=== PATIENT | female | born 1975 | race Caucasian/White ===

== ENCOUNTER 2016-12-19 18:13 | Emergency (ER) | payer OTHER ==
[2016-10-23 12:20] VITALS: Ht 157.5 cm; Wt 61.2 kg
[~2016-12-19] VITALS: Ht 157.5 cm; Wt 61.2 kg
[~2016-12-19 18:13] MED LIST: ASCO-339 GT; ASCO500T20 GT; BACL10TA GT; CALC-1100 GT; CALC-226 PO; CALC1TAB51 GT; CEPH500C2 GT; CIPR-211 GT; DITXL5 GT; LACO200T2 GT; LACT10SO66 GT; LACT10SO66 PO; LANS15CA5 GT; LANS30CA10 PO; LEVE1000 GT; LEVE500T13 GT; LEVE500T13 PO; METH1TAB35 GT; METO-290 GT; NITR25OR3 PO; NITR50CA GT; ONDA4TAB22 PO; OXYB10TA11 PO; OXYB10TA4 GT; OXYB5TAB11 GT; TEMA15CA51 GT; TEMA30CA5 GT; TYLL650 GT; VITD2000 GT; [UNRECOGNIZED DRUG - CODE] GT
[2016-12-19 18:18] VITALS: BP 98/68; PULSE 110; RESP 18; TEMP 97.2; O2SAT 95
--- NOTE | 2016-12-19 18:26 | NUR ---
Pt placed to ER bed 1. Pt report given to SURI Vasquez.
--- NOTE | 2016-12-19 18:30 | NUR ---
dr. forrest at bedside examining the pt.
--- NOTE | 2016-12-19 18:35 | NUR ---
pt. brought in by family for clogging to suprapubic catherter, redness at site with coagulated blood surrounding the site, pt. non verbal unresponsive baseline
--- NOTE | 2016-12-19 18:40 | NUR ---
Attempted to flush supra-pubic catheter with sterile NS and 60 mL syringe. Resistence noted, does not flush. Dr. Quinn notified.
[2016-12-19 20:11] LABS: BILIRUBIN,URINE NEGATIVE (NEGATIVE); BLOOD, URINE 3+ (NEGATIVE); CLARITY/URINE CLOUDY (CLEAR); COLOR,URINE YELLOW (YELLOW); GLUCOSE,URINE NEGATIVE (NEGATIVE); KETONES,URINE NEGATIVE (NEGATIVE); LEUKOCYTE ESTERASE ,URINE 3+ (NEGATIVE); NITRITE, URINE POSITIVE (NEGATIVE); PROTEIN URINE TRACE (NEGATIVE); UROBILINOGEN,URINE 0.2 (0.2-1.0)
[2016-12-19 20:26] LABS: BACTERIA,URINE MANY /HPF (None Seen); MUCUS,URINE None Seen /LPF (None Seen); RBC,URINE 20-50 /HPF (0-3); WBC,URINE >100 /HPF (0-3)
[2016-12-19 20:31] VITALS: BP 99/78; PULSE 99; RESP 17; TEMP 97.8; O2SAT 96
--- NOTE | 2016-12-19 20:31 | NUR ---
Note ruione in EDM - 12/19/16 at 2034 by SDEDAJF Patient given written and verbal discharge instructions and verbalizes understanding. ER discussed with patient the results and treatment provided. Patient in stable condition. ID arm band removed. Rx of given. Patient educated on pain management and to follow up with PMD. Pain Scale 0/10 Opportunity for questions provided and answered.
--- NOTE | 2016-12-19 20:31 | NUR ---
Caregiver given written and verbal discharge instructions and verbalizes understanding. ER MD discussed with patient the results and treatment provided. Patient in stable condition. ID arm band removed. Rx of Ciprofloxacin hcl 500 mg tab given. Caregiver educated on pain management and to follow up with PMD. Pain Scale 0/10 Opportunity for questions provided and answered.
--- NOTE | 2016-12-24 11:29 | NUR ---
+URINE CX OBTAINED, REVIEWED WITH DR. HOFFMAN WHO STATED TO NOTIFY DR. CRONIN'S OFFICE FOR FURTHER TREATMENT. SPOKE WITH GENI AT DR. CRONINS OFFICE REPORT FAXED OVER, NUMBER VERIFIED FOR ACCURACY, CONFIRMATION PAGED OBTAINED AND SENT TO MEDICAL RECORDS
== END 2016-12-19 20:31 | disposition home or self-care (01) ==
LOC: SED 18:13
DX: T83.011A Breakdown (mechanical) of indwelling urethral catheter, initial encounter (principal); N39.0 Urinary tract infection, site not specified; Z86.79 Personal history of other diseases of the circulatory system
CPT/HCPCS: 81000-TC; 87086; 87186-TC; 99284

== ENCOUNTER 2017-01-11 17:40 | Inpatient (IN) | payer OTHER ==
[~2017-01-11] VITALS: Ht 160 cm; Wt 65.8 kg
[2017-01-11 18:47] VITALS: BP 104/75; PULSE 104; RESP 18; TEMP 97.2; O2SAT 98
--- NOTE | 2017-01-11 18:54 | NUR ---
Pt placed to ER waiting room with mother, in stable condition.
--- NOTE | 2017-01-11 20:18 | NUR ---
Patient to ER bed 2 to gown for evaluation. Side rails up. Report given to Charity MCCORD.
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
--- NOTE | 2017-01-11 21:21 | NUR ---
Dr Mclain at bedside examining patient
[2017-01-11] MEDS ORDERED: NACL 0.9% 1,000 ML IV ONE (21:30)
--- NOTE | 2017-01-11 22:00 | NUR ---
Pt on stable condition, VS WNL
[2017-01-11 22:17] LABS: BILIRUBIN,URINE NEGATIVE (NEGATIVE); BLOOD, URINE NEGATIVE (NEGATIVE); CLARITY/URINE CLOUDY (CLEAR); COLOR,URINE YELLOW (YELLOW); GLUCOSE,URINE NEGATIVE (NEGATIVE); KETONES,URINE NEGATIVE (NEGATIVE); LEUKOCYTE ESTERASE ,URINE 3+ (NEGATIVE); NITRITE, URINE POSITIVE (NEGATIVE); PH,URINE >=9.0 (5.0-8.0); PROTEIN URINE 1+ (NEGATIVE)
[2017-01-11] MEDS ORDERED: ZOLP10TA2 PO (22:37)
[2017-01-11 22:41] LABS: BACTERIA,URINE MANY /HPF (None Seen); RBC,URINE 0-3 /HPF (0-3); WBC,URINE 20-50 /HPF (0-3)
[2017-01-11 22:42] LABS: MUCUS,URINE None Seen /LPF (None Seen)
[2017-01-11 22:43] LABS: CALCIUM OXALATE CRYSTALS,UR 30-50 /HPF (None Seen); TRIPLE PHOSPHATE CRYSTAL,UR 30-50 /HPF (None Seen); URINE AMORPHOUS PHOSPHATES 2+ /HPF (None Seen)
[2017-01-11] MEDS ORDERED: COMMUNICATION ORDER XX ONE (22:45)
[2017-01-11] MEDS ORDERED: KCL 20 mEq in D5/0.45NS 1000mL 1,000 ML IV ONE (22:45)
[2017-01-11] MEDS ORDERED: OXYBUTYNIN CHLORIDE 5 MG TABLET PO SCH (23:00)
[2017-01-11] MEDS: ACETAMINOPHEN 650 MG/20.3 ML UDC GT SCH (23:00)
[2017-01-11] MEDS: METOCLOPRAMIDE HCL 10 MG TABLET GT SCH (23:00)
[2017-01-11] MEDS: LACOSAMIDE 100 MG TABLET GT SCH (23:00)
[2017-01-11] MEDS ORDERED: MILK OF MAGNESIA 30 ML UDC PO PRN (23:00)
[2017-01-11] MEDS ORDERED: levETIRAcetam 500 MG TABLET PO SCH (23:15)
[2017-01-11] MEDS ORDERED: MEROPENEM 500 MG IVPB PREMIX 50 ML IV SCH (23:15)
--- NOTE | 2017-01-11 23:25 | NUR ---
Patient will be admitted to care of Dr Morgan Admitted to Medsurg unit. Will go to room 101. Belongings list completed. Summary report printed. Report given to admitting nurse .
[2017-01-11 23:30] VITALS: BP 125/71; PULSE 119; RESP 16; TEMP 98; O2SAT 95
--- NOTE | 2017-01-11 23:30 | NUR ---
ADMISSION NOTE Received patient from ER via Wheelchair under the care of Dr Olson. Patient admitted with diagnosis of GT dysfunction. Patient is awake but confused and disoriented and moans only. No verbal response. No initiation of eye contact. All extremities contracted. Noted GT site red and with drainage. Keep comfortable. Will monitor closely.
--- NOTE | 2017-01-11 23:37 | NUR ---
CONSULTATION PAGED REASON FOR CONSULTATION:G-TUBE DYSFUNCTION WAS CONSULT CALLED?Y PERSON WHO WAS NOTIFIED:JONG CONSULTING PHYSICIAN:DANITA JIMENEZ (SHASTA SHUKLA DIGITAL ACCOUNT COORDINATOR) ONCOLOGY PHYSICIAN ASSISTANT SPECIALTY:GI ONCOLOGY PHYSICIAN ASSISTANT PHONE NUMBER:[phone]
[2017-01-11 23:44] LABS: EOSINOPHILS # (AUTO) 0.2 K/uL (0.0-0.4); MEAN CORPUSCULAR HGB CONC 33 % (32-36)
[2017-01-11 23:52] LABS: CALCIUM 9.1 mg/dL (8.4-11.0); CREATININE 0.29 mg/dL (0.55-1.30); POTASSIUM 3.6 mmol/L (3.5-5.1)
[2017-01-11 23:57] LABS: BASOPHILS % (AUTO) 0.7 % (0.0-2.0); HEMATOCRIT 44.7 % (36-48); HEMOGLOBIN 14.7 g/dL (12.0-16.0); LYMPHOCYTES % (AUTO) 31.3 % (20.5-51.5); MEAN CORPUSCULAR HEMOGLOBIN 29 pg (27-31); MEAN CORPUSCULAR VOLUME 87 fL (79.0-98.0); MONOCYTES % (AUTO) 7.2 % (1.7-9.3); NEUTROPHILS % (AUTO) 58.8 % (40.0-70.0); PLATELET COUNT (AUTO) 348 K/uL (130-430); RED BLOOD CELL COUNT(AUTO) 5.14 MIL/uL (4.2-6.2); RED CELL DISTRIBUTION WIDTH 15.5 % (9.0-15.0); WHITE BLOOD COUNT (AUTO) 9.1 K/uL (4.8-10.8)
[2017-01-11 23:58] LABS: BASOPHILS # (AUTO) 0.1 K/uL (0.0-0.2); LYMPHOCYTES # (AUTO) 2.9 K/uL (1.0-5.5); MONOCYTES # (AUTO) 0.7 K/uL (0.0-1.0); NEUTROPHILS # (AUTO) 5.2 K/uL (1.8-7.7)
[2017-01-12] VITALS: BP 125/71; PULSE 119; RESP 16; TEMP 98; O2SAT 95
[2017-01-12 00:01] LABS: ALBUMIN 3.4 g/dL (3.4-4.8); TOTAL BILIRUBIN 0.4 mg/dL (0.0-1.0); TOTAL PROTEIN, SERUM 8.2 g/dL (6.4-8.3)
[2017-01-12] MEDS ORDERED: MEROPENEM 500 MG VIAL IV ONE (00:31)
--- NOTE | 2017-01-12 03:04 | NUR ---
Medication All schedule medication via GT not given due to GT dysfunction, will notify Dr Olson regarding medication route. Charge nurse made aware.
[2017-01-12 04:00] VITALS: BP 96/63; PULSE 82; RESP 16; TEMP 96.9; O2SAT 95
--- NOTE | 2017-01-12 04:00 | NUR ---
Wound care Applied dressing to GT site and right foot wound. Barrier cream applied to patient buttocks. Repositioned patient to side with pillow support. Air mattress in place for pressure ulcer precaution. padded side rail for seizure precaution.
[2017-01-12] MEDS: METOCLOPRAMIDE HCL 10 MG TABLET GT SCH ×4 (06:00→18:00)
--- NOTE | 2017-01-12 06:39 | NUR ---
Paged Dr Carr Paged Dr Carr regarding medication, loi cath access not working. new order received to changed Keppra to IV. per Dr Saleh he will check medication route. and also informed MD about Lovenox dose per Dr Estrada leave it. Charge nurse made aware.
--- NOTE | 2017-01-12 06:45 | NUR ---
Closing notes Patient resting quietly, no s/s of any pain, no acute distress noted. Repositioned to side with pillow support. Suprapubic cath to gravity.
--- NOTE | 2017-01-12 07:33 | NUR ---
AM Rounds: Received pt sitting semi-fowlers in bed. No acute signs of distress noted at this time. IV intact to LUE with no redness or swelling noted to site. Dressing to GT site CDI. Dressing to right foot CDI. Pt is non-verbal and unable to track with eyes. Opens eyes spontaneously. Call light in reach. Seizure, aspiration, fall, contact, and pressure ulcer precautions in place. Continue to monitor pt closely.
[2017-01-12 08:06] VITALS: BP 98/55; PULSE 89; RESP 16; TEMP 96.8; O2SAT 95
[2017-01-12] MEDS: LACOSAMIDE 100 MG TABLET GT SCH ×3 (08:43→20:26)
[2017-01-12] MEDS: ACETAMINOPHEN 650 MG/20.3 ML UDC GT SCH ×3 (08:43→20:25)
[2017-01-12] MEDS: OXYBUTYNIN CHLORIDE 5 MG TABLET GT SCH ×3 (08:43→20:25)
[2017-01-12] MEDS: CALCIUM 600/VIT D GT SCH ×3 (08:43→20:25)
[2017-01-12] MEDS ORDERED: levETIRAcetam 500 MG in NS 100 ML IV SCH (09:00)
[2017-01-12] MEDS: levETIRAcetam 750 MG in NS 100 ML IV SCH ×2 (09:07→20:24)
--- NOTE | 2017-01-12 09:15 | NUR ---
RN Rounds/Page Dr. Olson: AM meds given per MD order via IV. IV to let hand infusing fluids well with no redness or swelling noted to site. Call light in reach. No acute signs of distress noted. Pt pulled up and repositioned in bed. Dressing to abdomen CDI and GT remains clamped. Aspiration and seizure precautions in place. Dr. Olson paged to clarify antibiotic and diet orders at this time. Awaiting page back at this time.
--- NOTE | 2017-01-12 10:36 | NUR ---
Second Page Dr. Olson: Second page to Dr. Olson to clarify orders. Awaiting page back at this time.
--- NOTE | 2017-01-12 11:36 | NUR ---
Nutrition Update Aiden Scale 12 noted. Pt admitted for GI dysfunction. Diet: N/A BMI: 25.9 kg/m2 RD to follow per nutrition care standards.
--- NOTE | 2017-01-12 11:39 | NUR ---
Rounds/Dr. Olson Called Back: Dr. Olson called back, ok to continue medication through GT. GT flushing well at this time, leaking noted around site. Pt sitting semi-fowlers in bed. No acute signs of distress noted. IV intact to RUE with no redness or swelling noted to site. Call light in reach. Continue to monitor pt closely.
[2017-01-12] MEDS ORDERED: ENOXAPARIN SODIUM 30 MG/0.3 ML SYRINGE SUBCUT ONE (11:45)
[2017-01-12 12:42] VITALS: BP 104/58; PULSE 77; RESP 16; TEMP 98.6; O2SAT 95
[2017-01-12] MEDS: MEROPENEM 500 MG IVPB PREMIX 50 ML IV SCH ×2 (13:15→21:16)
--- NOTE | 2017-01-12 13:25 | NUR ---
Rounds: IV antibiotic infusing well to LUE with no redness or swelling noted to site. Call light in reach. Aspiration precautions in place. Pt pulled up and repositioned in bed. Continue to monitor.
--- NOTE | 2017-01-12 15:25 | NUR ---
Rounds: Pt sitting semi-fowlers in bed. No acute signs of distress noted at this time. IV intact to RUE with no redness or swelling noted to site. GT clamped to abdomen. Call light in reach. Aspiration and contact precautions in place. Continue to monitor.
[2017-01-12 16:57] VITALS: BP 99/64; PULSE 71; RESP 16; TEMP 97.9; O2SAT 98
--- NOTE | 2017-01-12 17:40 | NUR ---
Rounds: Pt sitting up in bed. No acute signs of distress noted. Dr. Wiggins here to see patient. New orders noted. Dr. Wiggins aware that Theodore valve does not fit to J-tube site and that leaking persists. Continue to monitor.
[2017-01-12] MEDS ORDERED: GASTROGRAFIN 120 ML ONE (18:00)
--- NOTE | 2017-01-12 19:15 | NUR ---
Closing Note: Pt sitting semi-fowlers in bed. No acute signs of distress noted at this time. Pt pulled up and repositioned in bed. Iv intact to LUE with no redness or swelling noted to site. GT feed infusing well to abdomen. Call light in reach. Aspiration, fall, contact, pressure ulcer precautions in place. Endorse plan of care to KETURAH RN.
[2017-01-12 20:00] VITALS: BP 96/56; PULSE 84; RESP 18; TEMP 97.2; O2SAT 93
--- NOTE | 2017-01-12 20:00 | NUR ---
Initial Notes Received patient laying in bed, awake, nonverbal, confused. Patient appears to be in no acute distress or pain. Vital signs stable. Breathing even and unlabored on room air. IV site patent/clean/dry. HOB elevated, tube feeding running per MD orders, leaking/drainage noted around GT site, abdomen distended. Leaking/drainage noted around suprapubic catheter. Wounds noted right foot and heel, dressing clean/dry/intact. Fall precautions in place. Will continue to monitor.
[2017-01-12] MEDS: ZOLPIDEM TARTRATE 5 MG TABLET GT SCH (20:26)
--- NOTE | 2017-01-12 22:00 | NUR ---
Rounds, Dressings changed, Feeding held Patient resting in bed, no change in mentation. Assisted COMPUTER AIDED DESIGN TECHNICIAN with CHG bath. Large amount of feeding noted to be leaking from GT site. Feeding stopped, GT site care and dressing change provided. Dressing change provided to leaking suprapubic catheter. Patient repositioned for comfort. Fall and seizure precautions in place, will continue to monitor. Charge nurse made aware that tube feeding is being held due to leaking and stomach distention.
[2017-01-13] VITALS (7 sets, daily range): BP systolic 104–142; BP diastolic 64–102; PULSE 69–107; RESP 16–19; TEMP 97–97.9; O2SAT 94–99; Ht 160 cm; Wt 65.8 kg
--- NOTE | 2017-01-13 | NUR ---
Rounds Patient laying in bed, awake, no change in mentation. No acute distress or pain noted. Breathing even and unlabored. Patient repositioned for comfort. Patient NPO for abdominal ultrasound in AM. Call light in hand, will continue to monitor.
[2017-01-13] MEDS: METOCLOPRAMIDE HCL 10 MG TABLET GT SCH ×4 (01:20→17:49)
--- NOTE | 2017-01-13 02:00 | NUR ---
Rounds Patient resting in bed with eyes closed. No acute distress or pain noted, breathing even and unlabored. Call light in hand, fall precautions in place. Will continue to monitor.
--- NOTE | 2017-01-13 04:16 | NUR ---
Rounds and GT care Patient resting in bed with eyes closed, easily aroused. Patient appears in no acute distress or pain, breathing even and unlabored. GT care provided and dressing changed due to leakage/drainage, patient tolerated well. Patient repositioned for comfort. Call light in hand, fall precautions in place. Will continue to monitor.
[2017-01-13] MEDS: MEROPENEM 500 MG IVPB PREMIX 50 ML IV SCH ×3 (05:08→22:01)
--- NOTE | 2017-01-13 06:32 | NUR ---
Closing Notes Patient laying in bed, awake, no change in mentation. No acute distress or pain noted. Breathing even and unlabored. IV site patent/clean/dry, no S/S infection/infiltration noted. No urine output noted in suprapubic drainage bag, patient incontinent of urine. G-tube site continues to have leakage/drainage, dressing recently changed, clean/dry/intact. Needs addressed throughout shift. Call light in hand, fall precautions in place. Will continue to monitor for changes and safety, and endorse all patient care/needs to oncoming nurse.
--- NOTE | 2017-01-13 06:51 | NUR ---
Laceration to Right AC Weekend Receptionist reported patient received a small laceration to right AC during blood draw due to patient moving arm. Dressing was applied by raw stock machine loader.
[2017-01-13 07:21] LABS: BASOPHILS # (AUTO) 0.1 K/uL (0.0-0.2); BASOPHILS % (AUTO) 1.3 % (0.0-2.0); EOSINOPHILS # (AUTO) 0.2 K/uL (0.0-0.4); EOSINOPHILS % (AUTO) 2.2 % (0.0-4.0); HEMATOCRIT 40.4 % (36-48); HEMOGLOBIN 13.4 g/dL (12.0-16.0); LYMPHOCYTES # (AUTO) 2.1 K/uL (1.0-5.5); LYMPHOCYTES % (AUTO) 25.7 % (20.5-51.5); MEAN CORPUSCULAR HEMOGLOBIN 29 pg (27-31); MEAN CORPUSCULAR HGB CONC 33 % (32-36); MEAN CORPUSCULAR VOLUME 87 fL (79.0-98.0); MONOCYTES # (AUTO) 0.6 K/uL (0.0-1.0); MONOCYTES % (AUTO) 7.9 % (1.7-9.3); NEUTROPHILS # (AUTO) 5.1 K/uL (1.8-7.7); NEUTROPHILS % (AUTO) 62.9 % (40.0-70.0); PLATELET COUNT (AUTO) 301 K/uL (130-430); RED BLOOD CELL COUNT(AUTO) 4.65 MIL/uL (4.2-6.2); RED CELL DISTRIBUTION WIDTH 15.3 % (9.0-15.0); WHITE BLOOD COUNT (AUTO) 8.1 K/uL (4.8-10.8)
[2017-01-13 07:57] LABS: ALBUMIN 3.1 g/dL (3.4-4.8); CALCIUM 8.8 mg/dL (8.4-11.0); CREATININE 0.33 mg/dL (0.55-1.30); POTASSIUM 3.8 mmol/L (3.5-5.1); TOTAL BILIRUBIN 0.4 mg/dL (0.0-1.0); TOTAL PROTEIN, SERUM 7.4 g/dL (6.4-8.3)
[2017-01-13 07:58] LABS: IRON (SERUM) 42 mcg/dL (37-145); TOTAL IRON BIND. CAPACITY 331 ug/dL (250-450)
--- NOTE | 2017-01-13 08:28 | NUR ---
OPENING NOTE RECEIVED REPORT FROM NIGHT NURSE, PATIENT IS RESTING IN BED COMFORTABLY WITH NO NOTED DISTRESS, DISCOMFORT OR SOB. PATIENT IS NONVERBAL AND IS BEDREST. CALL LIGHT IS WITHIN REACH. BED IS IN LOWEST POSITION AND GTUBE FEEDING IS HELD BECAUSE PATIENT WILL BE GETTING AN US OF THE ABDOMEN TODAY. WILL CONTINUE TO MONITOR.
--- NOTE | 2017-01-13 10:12 | NUR ---
NOTE PATIENT IS RESTING COMFORTABLY IN BED WITH NO NOTED DISTRESS, DISCOMFORT OR SOB. PATIENT'S PO MEDICATIONS WERE HELD BECAUSE PATIENT IS SUPPOSE TO BE GETTING AN US BUT KEPPRA IV WAS GIVEN. CALL LIGHT IS WITHIN REACH AND VITAL SIGNS WERE WITHIN NORMAL RANGE. DR PEDROZA WAS IN TO SEE THE PATIENT AND WANTS AN US AND THEN TO CONTINUE TO FEEDING AND IF THE TUBE IS NOT IN THE RIGHT PLACE THEN HE WILL CHANGE THE TUBE WEDNESDAY. DR CRONIN WAS IN TO SEE THE PATIENT AND IS AWARE OF DR PEDROZA'S ORDERS. WILL CONTINUE TO MONITOR.
[2017-01-13] MEDS: levETIRAcetam 750 MG in NS 100 ML IV SCH ×2 (10:14→22:01)
--- NOTE | 2017-01-13 10:22 | NUR ---
DISCHARGE PLANNING DC planning order to arrange tube feed infusion pump. Faxed order to [facility] [phone] and [phone]. Will follow up. Addendum: 01/13/17 at 1412 by Melinda Baer DP Spoke with Lucia at [facility] who requested for signed detailed MD. CM made aware.
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
--- NOTE | 2017-01-13 11:51 | NUR ---
WOUND CARE HEMAL AND Clau WENT INTO ASSESS THE PATIENT AND THE RIGHT ANKLE HAS A DRY SCAB AND FOAM DRESSING WAS APPLIED, THE RIGHT HEEL HAS REDNESS AND FOAM DRESSING WAS APPLIED, THE BUTTOCK HAS REDNESS AND Z GUARD WAS APPLIED AND THE PATIENT WILL BE TURNED LEFT RIGHT Q 2HOURS. THE GTUBE SITE IS DENUDED AND ALGONATE WAS APPLIED AROUND THE G TUBE, FOAM DRESSING AND THE 4X4, ABDOMINAL PAD WAS APPLIED OVER THE DRESSINGS AND PAPER TAPE WAS APPLIED AROUND THE PAD. THE PATIENT HAD HER US AND G TUBE FEEDING WILL BE RESUMED. CALL LIGHT IS WITHIN REACH AND BED IS IN LOWEST POSITION. WILL CONTINUE TO MONITOR.
[2017-01-13] MEDS: ENOXAPARIN SODIUM 30 MG/0.3 ML SYRINGE SUBCUT SCH (12:34)
[2017-01-13] MEDS: CALCIUM 600/VIT D GT SCH ×2 (12:34→21:58)
[2017-01-13] MEDS: LACOSAMIDE 100 MG TABLET GT SCH ×2 (12:34→22:00)
[2017-01-13] MEDS: OXYBUTYNIN CHLORIDE 5 MG TABLET GT SCH ×2 (12:34→21:59)
[2017-01-13] MEDS: ACETAMINOPHEN 650 MG/20.3 ML UDC GT SCH ×2 (12:34→21:59)
--- NOTE | 2017-01-13 14:33 | NUR ---
Discharge Planning Met with Jenny Marrero of [facility] outside of patient's room. Jenny stated that her company provides in home care daily for this patient. Care is considered non-medical and consists of assistance with ADLs. Her contact #[phone]. They are not a home health agency and do not provided any skilled care.
--- NOTE | 2017-01-13 14:45 | NUR ---
NOTE PATIENT IS RESTING IN BED COMFORTABLY WITH NO NOTED DISTRESS, DISCOMFORT OR SOB. PATIENT WAS REPOSITIONED AND CLEANED AND TOLERATED WELL. BED IS IN LOWEST POSITION AND CALL LIGHT IS WITHIN REACH. WILL CONTINUE TO MONITOR.
--- NOTE | 2017-01-13 16:50 | NUR ---
NOTE PATIENT IS RESTING IN BED COMFORTABLY WITH NO NOTED DISTRESS, DISCOMFORT OR SOB. PATIENT WAS REPOSITIONED AND TOLERATED IT WELL. BED IS IN LOWEST POSITION AND CALL LIGHT IS WITHIN REACH. WILL CONTINUE TO MONITOR.
--- NOTE | 2017-01-13 18:21 | NUR ---
CLOSING NOTE PATIENT'S FEEDING WAS PLACED ON HOLD BECAUSE THERE WAS A LOT OF DISCHARGE FROM THE G TUBE SITE, THE DRESSING WAS CLEANED AND CHANGED. THE G TUBE WILL BE CONTINUED AND WILL ENDORSE TO NIGHT NURSE. PATIENT WAS REPOSITIONED AND TOLERATED WELL. CALL LIGHT IS WITHIN REACH AND WILL CONTINUE TO MONITOR.
--- NOTE | 2017-01-13 19:15 | NUR ---
change of shift.initial pt.assessment.pt.presents cognition/mentation compromised.pt.presents g/j-tube drainage manifested.supra-pubic catheter sligth drainage.sx hx no sx activity manifested.iv access :located:lt.hand.pt. presents awake loc:non verbal:expressive asphasia.sx precautions in place.
--- NOTE | 2017-01-13 20:00 | NUR ---
pt.assessed.v/s assessed.values w/in normal limits.pt.repositioned.g/j tube assessed:drainage@insertion site. supra-pubic catheter assesed:slight drainage.call light placed w/in pt's reach.no sx activity manifested.
--- NOTE | 2017-01-13 21:00 | NUR ---
2100p medications administered.ivpb:keppra administered.merrem:ivpb administered.
[2017-01-13] MEDS: MENTHOL/ZINC OXIDE 113 GM OINT. TP PRN ×2 (21:56→21:57)
[2017-01-13] MEDS: ZOLPIDEM TARTRATE 5 MG TABLET GT SCH (21:58)
--- NOTE | 2017-01-13 22:00 | NUR ---
pt.assessed.g/j tube assessed:drainage,supra-pubic catheter assessed:slight drainage.pt.repositioned. call light placed w/in pt's reach. Addendum: 01/14/17 at 0415 by Jp Villeda RN telephoned re:+mrsa screen:dirk.microbiology.
--- NOTE | 2017-01-13 22:30 | NUR ---
returned the call.i apprised of the =Mrsa sreen. stated he will attend to the f/u in the am:01/14/17.i have apprised niels;rn:miriam/pastor simran ti have cnveyed 2 the mrsa results and 's response 2 the information:microbiology.
--- NOTE | 2017-01-14 | NUR ---
pt.assessed.v/s assessed.values w/in normal limits.pt.repositioned.g/j-tube assessed dsg changed.supra-pubic catheter assessed dsg changed.no sx activity manifested.
[2017-01-14] MEDS: METOCLOPRAMIDE HCL 10 MG TABLET GT SCH ×5 (00:40→23:57)
[2017-01-14 01:12] VITALS: BP 134/65; PULSE 98; RESP 17; TEMP 97.8; O2SAT 93
--- NOTE | 2017-01-14 02:00 | NUR ---
pt.assessed.g-tube assessed:drainage;slight manifested.supra-pubic catheter assessed.slight drainage.pt. repositioned.no sx activity manifested.call light place w/in pt's reach.
--- NOTE | 2017-01-14 04:00 | NUR ---
pt.assessed.g-tube assessed:drainage manifested.supra-pubic catheter assessed:slight drainage.pt.repositioned. call ligth w/in pt's reach>no sx activity manifested.
[2017-01-14 04:09] VITALS: BP 124/75; PULSE 85; RESP 16; TEMP 97; O2SAT 98
[2017-01-14] MEDS: MEROPENEM 500 MG IVPB PREMIX 50 ML IV SCH ×3 (06:00→21:54)
--- NOTE | 2017-01-14 06:31 | NUR ---
pt.assessed.pt.rep
--- NOTE | 2017-01-14 06:32 | NUR ---
pt.assssed.pt.repositioned.pt.cleaned.dsg;g/j-tube changed.supra-pubic catheter dsg changed.g/j tube assessed.iv access:iv fluids assessed:location lt.hand.call light place w/in pt's reach.
[2017-01-14 07:53] LABS: ALBUMIN 3.2 g/dL (3.4-4.8); CALCIUM 8.8 mg/dL (8.4-11.0); CREATININE 0.34 mg/dL (0.55-1.30); POTASSIUM 4.1 mmol/L (3.5-5.1); TOTAL BILIRUBIN 0.5 mg/dL (0.0-1.0); TOTAL PROTEIN, SERUM 7.5 g/dL (6.4-8.3)
[2017-01-14 07:56] VITALS: BP 94/67; PULSE 87; RESP 16; TEMP 97; O2SAT 95
--- NOTE | 2017-01-14 08:00 | NUR ---
NOTE PT RESTING IN BED WITH SEIZURE PADS ON BED RAILS. IV IN LEFT FINGER INTACT AND PATENT, INFUSING IVF'S AND ANTIBIOTIC IVPB AT THIS TIME. NO SOB/RESP DISTRESS OR PAIN/DISCOMFORT NOTED AT THIS TIME. SUPRAPUBIC CATHETER SITE AND GT FEEDING SITE LEAKING, DRESSING AND REINFORCEMENT TOWELS WERE APPLIED. PT UNDER CONTACT PRECAUTIONS FOR MRSA IN NARES AND ESBL IN URINE. CALL LIGHT WITHIN REACH.
[2017-01-14] MEDS: MENTHOL/ZINC OXIDE 113 GM OINT. TP SCH ×5 (09:00→21:00)
--- NOTE | 2017-01-14 09:09 | NUR ---
Nutrition Note Nutrition Consult (Aiden Score 12) received 01/13/17 8783. Pt was seen and assessed by RD on 01/13/17. Please refer to Nutrition Assessment for details. RD to continue to follow per nutrition care standards.
[2017-01-14] MEDS: ACETAMINOPHEN 650 MG/20.3 ML UDC GT SCH ×2 (09:19→21:00)
[2017-01-14] MEDS: ENOXAPARIN SODIUM 30 MG/0.3 ML SYRINGE SUBCUT SCH (09:19)
[2017-01-14] MEDS: MENTHOL/ZINC OXIDE 113 GM OINT. TP PRN (09:20)
[2017-01-14] MEDS: CALCIUM 600/VIT D GT SCH ×2 (09:20→21:00)
[2017-01-14] MEDS: OXYBUTYNIN CHLORIDE 5 MG TABLET GT SCH ×2 (09:20→21:00)
[2017-01-14] MEDS: LACOSAMIDE 100 MG TABLET GT SCH ×2 (09:29→21:00)
[2017-01-14] MEDS: levETIRAcetam 750 MG in NS 100 ML IV SCH ×2 (10:05→21:54)
--- NOTE | 2017-01-14 11:00 | NUR ---
NOTE PT'S MOTHER IN ROOM TO VISIT WITH PT AT THIS TIME. UPDATE ON PT'S (DAUGHTER) STATUS GIVEN REQUESTED AT THIS TIME. CALL LIGHT WITHIN REACH. PT IS CHECKED ON Q1' AND PRN FOR NEEDS AND CARE. PT WAS GIVEN HYGIENE AND BED BATH BY [employer] (INES).
[2017-01-14 12:22] VITALS: BP 104/68; PULSE 83; RESP 16; TEMP 97.6; O2SAT 94
--- NOTE | 2017-01-14 14:00 | NUR ---
NOTE PT RESTING IN BED. NO SOB/RESP DISTRESS OR PAIN/DISCOMFORT NOTED AT THIS TIME. NO NEEDS NOTED AT THIS TIME. PT TURNED Q2' TO PROMOTE CIRCULATION AND FOR COMFORT AT THIS TIME. CALL LIGHT WITHIN REACH.
[2017-01-14 14:14] LABS: FERRITIN 36 ng/mL (15-150); HEPATITIS A AB, IgM Negative (Negative); HEPATITIS B CORE AB, IgM Negative (Negative); HEPATITIS B SURFACE AG Negative (Negative)
--- NOTE | 2017-01-14 15:00 | NUR ---
NOTE DR CRONIN WAS ON THE FLOOR, NOTIFIED THAT GT FEEDINGS AND SUPRAPUBIC CATHETER IS LEAKING ALL SHIFT. NEW GT IS SCHEDULED TO BE PUT IN TOMORROW PER DR CRONIN AND DR MANZO (UROLOGY) TO BE CONSULTED FOR SUPRAPUBIC CATHETER PER DR CRONIN.
[2017-01-14 16:17] VITALS: BP 127/73; PULSE 91; RESP 16; TEMP 97.5; O2SAT 98
--- NOTE | 2017-01-14 16:25 | NUR ---
NOTE DR CRONIN WAS NOTIFIED THAT GT FEEDINGS WERE HELD ALL THE FEEDINGS AND MEDICATIONS THROUGH THE GT ARE LEAKING ON TO THE PT, PT NOT RECEIVING ANY OF THE FEEDINGS OR MEDICATIONS DUE TO THE LEAKING. DR CRONIN WILL PUT IN NEW ORDERS. PT RESTING IN BED AT THIS TIME. NO PAIN/DISCOMFORT OR SOB/RESP DISTRESS NOTED AT THIS TIME.
[2017-01-14] MEDS: D5/0.45 NS 1,000 ML IV SCH (17:16)
--- NOTE | 2017-01-14 18:00 | NUR ---
NOTE PT RESTING IN BED. GT FEEDINGS AND GT MEDICATIONS ARE HELD AT THIS TIME TILL TOMORROW WHEN NEW GT TO BE INSERTED. IVF'S INFUSING WELL THROUGH LEFT HAND IV SITE. NO SOB/RESP DISTRESS OR PAIN/DISCOMFORT NOTED AT THIS TIME. PT'S SUPRAPUBIC AND GT SITES WERE CLEANED AND DRESSED WITH NEW DRESSINGS WHICH ARE CDI AT THIS TIME. PT WAS CHECKED ON Q1' AND PRN FOR NEEDS AND . PT WAS MAINTAINED WITH SAFETY PRECAUTIONS ALL SHIFT. NO NEEDS NOTED. CALL LIGHT WITHIN REACH. Addendum: 01/14/17 at 1809 by Radha Witt RN PT HAS HAD PADDED SIDE RAILS ALL SHIFT FOR HISTORY OF SEIZURES. Addendum: 01/14/17 at 1842 by Radha Witt RN DR PEDROZA ON THE FLOOR TO SEE AND ASSESS PT AT THIS TIME.
[2017-01-14 19:45] VITALS: BP 121/72; PULSE 91; RESP 20; TEMP 97.6; O2SAT 96
--- NOTE | 2017-01-14 20:00 | NUR ---
NOTES; PT IS IN BED, EYES OPEN. NONVERBAL, RESPONSIVE TO TOUCH AND PAINFUL STIMULI. PT IS ON AIR MATTRESS. NO APPARENT DISTRESS NOTED. VITAL SIGNS STABLE, AFEBRILE. CONTRACTED TO UPPER AND LOWER EXT. BRUISE TO THE RT UPPER ARM, RT CHEST AREA SCRATCHES NOTED. MALFUNCTION G/J-TUBE. PER OUT GOING NURSE. DR. ALVAREZ GAVE HER ORDER NOT TO USE G/J-TUBE, STOP FEEDING AND STOP ALL TUBE MEDICATION. INFORMED OUTGOING NURSE TO WRITE ORDER. G/J TUBE CLAMPED. G-TUBE DRESSING IS WET, DRESSING REMOVED. G/J-TUBE SITE REDNESS NOTED. CLEANSE SITE WITH NS, Z-GUARD CREAM TO REDDENED AREA. DRESSING APPLIED. ABD NONDISTENDED WITH ACTIVE BOWEL SOUNDS. SUPRAPUBIC CATHETER NOTED, AND LEAKING. BAG WITH MINIMAL URINE OUT PUT. SUPRAPUBIC DRESSING REMOVED, CLEANSE SITE WITH NS, DRESSING APPLIED. BED BATH GIVEN, MARÍA AREA WITH EXCORIATION NOTED. MARÍA CARE GIVEN. CALMOSEPTINE CREAM APPLIED TO MARÍA AREA AND BUTTOCKS. RT FOOT WITH 3+ EDEMA. RT FOOT WOUND WITH DRESSING CLEAN,DRY, AND INTACT. IV TO THE LEFT THUMB, GAUGE 22, WITH ORDERED IVF INFUSING WELL. IV IS PATENT. NO SIGNS OF INFECTION NOTED ON IF SITE. REPOSITIONED TO PREVENT PT SKIN FROM FURTHER BREAKDOWN. NO FACIAL GRIMACING OF PAIN NOTED. BED LOCKED AND IN LOW POSITION, SIDE RAIL;S UP X3. CALL LIGHT WITHIN REACH.
[2017-01-14 20:09] LABS: ANTI NUCLEAR AB WITH REFLEX Negative (Negative)
[2017-01-14] MEDS: ZOLPIDEM TARTRATE 5 MG TABLET GT SCH (21:00)
--- NOTE | 2017-01-14 22:00 | NUR ---
NOTES; REPOSITIONED FOR COMFORT. NO FACIAL GRIMACING OF PAIN NOTED. SAFETY MEASURES IN PROGRESS.
--- NOTE | 2017-01-14 23:00 | NUR ---
NOTES; DR CRONIN CALLED SPOKE WITH MD FOR CLARIFICATION OF G-TUBE MEDICATION AND FEEDING. NEW ORDERS RECEIVED TO HOLD ALL G-TUBE MEDICATION AND FEEDING. CHARGE NURSE AND RN COVERING INFORMED.
--- NOTE | 2017-01-15 00:11 | NUR ---
NOTES; PT REFUSED TO SIGN CONSENT FOR EGD. PT STATED" I AM NOT COMFORTABLE SIGNING BECAUSE I DIDN'T UNDERSTAND THE PROCEDURE PROPERLY. RN COVERING AND CHARGE NURSE NOTIFIED. Addendum: 01/15/17 at 0645 by Catie Bangura LVN WRONG PT ENTRY
--- NOTE | 2017-01-15 00:15 | NUR ---
NOTES; G TUBE DRESSING SOILED. DRESSING REMOVED, G-TUBE SITE CLEANSE WITH NS AND DRESSING APPLIED. REPOSITIONED FOR COMFORT. NO FACIAL GRIMACING OF PAIN NOTED. SAFETY MEASURES IN PROGRESS. REPOSITIONED FOR COMFORT. NO FACIAL GRIMACING OF PAIN NOTED. SAFETY MEASURES IN PROGRESS.
[2017-01-15 00:54] VITALS: BP 111/73; PULSE 99; RESP 16; TEMP 97.5; O2SAT 91
--- NOTE | 2017-01-15 02:45 | NUR ---
NOTES; CHG BATH GIVEN, LINEN CHANGED. G-TUBE DRESSING SOILED. DRESSING REMOVED, G-TUBE SITE CLEANSE WITH NS, Z-GUARD CREAM APPLIED AND DRESSING APPLIED. REPOSITIONED FOR COMFORT. NO FACIAL GRIMACING OF PAIN NOTED. SAFETY MEASURES IN PROGRESS. REPOSITIONED FOR COMFORT. NO FACIAL GRIMACING OF PAIN NOTED. SAFETY MEASURES IN PROGRESS.
[2017-01-15 04:25] VITALS: BP 117/68; PULSE 85; RESP 17; TEMP 97.6; O2SAT 95
--- NOTE | 2017-01-15 04:30 | NUR ---
NOTES; REPOSITIONED FOR COMFORT. NO FACIAL GRIMACING OF PAIN NOTED. SAFETY MEASURES IN PROGRESS.
[2017-01-15 05:06] LABS: ALPHA-1-ANTITRYPSIN, S 169 mg/dL (90-200)
[2017-01-15] MEDS: METOCLOPRAMIDE HCL 10 MG TABLET GT SCH ×3 (06:00→17:47)
--- NOTE | 2017-01-15 06:24 | NUR ---
NOTES; CALLED PT MOTHER, FOR TELEPHONE CONSENT, WITNESSED BY HIEU MCCORD AND SIMON CHARGE NURSE. READ BACK AND VERIFIED. Addendum: 01/15/17 at 0816 by Catie Bangura LVN CONCENT FOR EGD WITH G/J TUBE CHANGE.
[2017-01-15] MEDS: D5/0.45 NS 1,000 ML IV SCH ×2 (07:00→17:48)
[2017-01-15] MEDS: MEROPENEM 500 MG IVPB PREMIX 50 ML IV SCH ×3 (07:01→23:00)
--- NOTE | 2017-01-15 07:43 | NUR ---
AM Round: Received pt sitting semi-fowlers in bed. No acute signs of distress noted at this time. IV intact to LUE with no redness or swelling noted to site. Pt is non-verbal but able to spontaneously open eyes. GT clamped to abdomen. Suprapubic cath in place. Call light in reach. Aspiration, fall, contact, and pressure ulcer precautions in place. Continue to monitor pt closely
[2017-01-15 08:13] VITALS: BP 114/57; PULSE 81; RESP 17; TEMP 96.8; O2SAT 92
[2017-01-15 08:41] LABS: BASOPHILS # (AUTO) 0.1 K/uL (0.0-0.2); BASOPHILS % (AUTO) 1.4 % (0.0-2.0); EOSINOPHILS # (AUTO) 0.2 K/uL (0.0-0.4); HEMATOCRIT 40.7 % (36-48); HEMOGLOBIN 13.4 g/dL (12.0-16.0); LYMPHOCYTES # (AUTO) 1.4 K/uL (1.0-5.5); LYMPHOCYTES % (AUTO) 24.4 % (20.5-51.5); MEAN CORPUSCULAR HEMOGLOBIN 29 pg (27-31); MEAN CORPUSCULAR HGB CONC 33 % (32-36); MEAN CORPUSCULAR VOLUME 87 fL (79.0-98.0); MONOCYTES # (AUTO) 0.3 K/uL (0.0-1.0); MONOCYTES % (AUTO) 5.8 % (1.7-9.3); NEUTROPHILS # (AUTO) 3.7 K/uL (1.8-7.7); NEUTROPHILS % (AUTO) 65.4 % (40.0-70.0); PLATELET COUNT (AUTO) 261 K/uL (130-430); RED BLOOD CELL COUNT(AUTO) 4.68 MIL/uL (4.2-6.2); RED CELL DISTRIBUTION WIDTH 15.5 % (9.0-15.0); WHITE BLOOD COUNT (AUTO) 5.7 K/uL (4.8-10.8)
[2017-01-15] MEDS: ACETAMINOPHEN 650 MG/20.3 ML UDC GT SCH ×3 (08:59→22:05)
[2017-01-15] MEDS: CALCIUM 600/VIT D GT SCH ×2 (08:59→22:05)
[2017-01-15] MEDS: LACOSAMIDE 100 MG TABLET GT SCH ×2 (08:59→22:06)
[2017-01-15] MEDS: OXYBUTYNIN CHLORIDE 5 MG TABLET GT SCH ×2 (08:59→22:06)
[2017-01-15] MEDS: MENTHOL/ZINC OXIDE 113 GM OINT. TP SCH ×4 (09:03→22:14)
[2017-01-15] MEDS: ENOXAPARIN SODIUM 30 MG/0.3 ML SYRINGE SUBCUT SCH (09:03)
[2017-01-15 09:14] LABS: INR 1.1 (0.8-1.2)
--- NOTE | 2017-01-15 09:18 | NUR ---
RN Rounds: AM meds given per MD order. No acute signs of distress noted. GT remains clamped at this time. Call light in reach. Aspiration precautions in place. Continue to monitor.
[2017-01-15 09:19] LABS: ALBUMIN 3.2 g/dL (3.4-4.8); CALCIUM 8.6 mg/dL (8.4-11.0); CREATININE 0.4 mg/dL (0.55-1.30); POTASSIUM 3.8 mmol/L (3.5-5.1); TOTAL BILIRUBIN 0.5 mg/dL (0.0-1.0); TOTAL PROTEIN, SERUM 7.7 g/dL (6.4-8.3)
[2017-01-15] MEDS: levETIRAcetam 750 MG in NS 100 ML IV SCH ×2 (09:22→22:05)
--- NOTE | 2017-01-15 09:34 | NUR ---
Patient off joyce to GI Lab: Patient off joyce to GI Lab. IV flushing well to LUE. Pt is medically stable at this time.
[2017-01-15] MEDS: MEPERIDINE HCL/PF 100 MG/ML AMP ONE ×4 (09:41→10:47)
[2017-01-15] MEDS: MIDAZOLAM HCL 5 MG/5 ML VIAL ONE ×4 (09:41→10:47)
--- NOTE | 2017-01-15 10:42 | NUR ---
Pt Return from GI Lab: Pt return from GI lap. No acute signs of bleeding noted to site. Dressing clean, dry intact. Call light in reach. Aspiration precautions in place. Continue to monitor.
[2017-01-15 11:47] VITALS: BP 94/58; PULSE 82; RESP 16; TEMP 97.6; O2SAT 96
--- NOTE | 2017-01-15 11:55 | NUR ---
Rounds/Tube Feed Started: Pt sitting semi-fowlers in bed. No acute signs of distress noted at this time. IV intact to LUE with no redness or swelling noted to site. GT feed infusing well to abdomen at this time. No leaking noted to site. Dressing clean and intact. Call light in reach. Continue to monitor.
--- NOTE | 2017-01-15 13:39 | NUR ---
Rounds: Pt sitting semi-fowlers in bed. No acute signs of distress noted. G-tube in place. no leaking noted to site. Call light in reach. Aspiration precautions in place.
--- NOTE | 2017-01-15 14:01 | NUR ---
Wound Re-Evaluation: Patient was awake, non-verbal, does not track with eyes, and received in a [place] bed with an IsoFlex DEEPALI mattress with low air-loss therapy initiated. Aiden score is a 10. Skin is poor; Incontinent of bowel; All extremities contracted. Intrinsic Factors that delay wound healing: Chronic Encephalopathy. Extrinsic factors that decrease wound healing: decreased mobility. Urine Culture positive for Pseudomonas Aeruginosa. MRSA Screen positive. Wound Assessment: 1. G-Tube Dolly-Site and Surrounding Tissue Erythema and non-intact skin from from G-Tube leakage/drainage, present on admission. 100% red tissue, no odor, no drainage. Surrounding tissue erythematous. New PEG placed this morning. Recommend: Cleanse area with normal saline. Pat dry. Put Calmoseptine cream onto involved area. Cover with drain sponge. Perform site care q shift and as needed for dressing soiling or dislodgement. 2. Right Lateral Heel: Blanchable redness, with dark discoloration, present on admission. No odor, no drainage. 3. Right Medial Heel: Blanchable redness, with 10% dark discoloration, 90% light pink tissue, hard feel, present on admission. No odor, no drainage. Recommend continue: Elevate, offload and float heels at all times with pillows. Place a pillow between the knees. 4. Right Dorsal Foot: Appears to be a small, chronic wound with scar tissue, present on admission. Wound bed has 90% brown eschar, 10% pink tissue. Dry, stable. No odor, no drainage. Recommend continue: Cover with foam dressing. Perform wound daily, and as needed for dressing soiling or dislodgment. 5. Sacral and buttocks Areas: Appears to be redness from IAD, present on admission. Recommend continue: Cleanse sites with mild soap and water. Pat dry. Use Calmoseptine cream on involved areas qid and prn for soiling. Also recommend continue: Reposition patient side to side only every two hours with pillow support, and off-load pressure areas with pillows for pressure re-distribution. Perform skin care and monitor skin integrity q shift. Elevate, offload and float heels at all times with pillows. Use Calmoseptine cream on reddened and moisture susceptible areas qid and prn for soiling. Maintain patient on a low air-loss mattress.
[2017-01-15 15:09] LABS: ANTI-SMOOTH MUSCLE AB 7 Units (0-19)
--- NOTE | 2017-01-15 15:17 | NUR ---
Rounds/Page MD: Pt cleaned and repositioned in bed. GT feed infusing well to abdomen with 5mL residual noted. Call light in reach. Dr. Olson paged for pain meds. Awaiting page back at this time.
[2017-01-15 15:32] VITALS: BP 114/67; PULSE 86; RESP 19; TEMP 96.8; O2SAT 95
--- NOTE | 2017-01-15 16:50 | NUR ---
consult Called Dr. Diaz for consult spoke to Deborrah .
--- NOTE | 2017-01-15 17:45 | NUR ---
Dr. Diaz Here: Dr. Diaz here to insert suprapubic catheter at bedside. Pt tolerates well. Catheter draining well to gravity at this time with no leaking noted.
--- NOTE | 2017-01-15 18:51 | NUR ---
Closing Note: Pt sitting semi-fowlers in bed. No acute signs of distress noted at this time. IV intact to RUE infusing fluids well at this time. Suprapubic catheter draining well to gravity. GT feed infusing well to abdomen with no leaking noted to site. Dressing to abdomen has scant drainage to site. Pt pulled up and repositioned in bed. Call light in reach. Endorse plan of care to KETURAH MCCORD. Addendum: 01/15/17 at 1852 by Alice Mckay RN Aspiration, fall, contact, and pressure ulcer precautions in place.
--- NOTE | 2017-01-15 19:20 | NUR ---
OPENING NOTE REPORT GIVEN AT BEDSIDE FROM SHARONA MCCORD. PATIENT RESTING IN SEMI-FREEDMAN'S POSITION. NO ACUTE S/S OF DISTRESS NOTED. WILL CONTINUE TO MONITOR FREQUENTLY. SEIZURE, ASPIRATION, AND FALL PRECAUTIONS IN PLACE. CALL LIGHT WITHIN REACH.
[2017-01-15 19:29] VITALS: BP 94/57; PULSE 90; RESP 20; TEMP 97.3; O2SAT 98
--- NOTE | 2017-01-15 21:20 | NUR ---
ROUNDS PATIENT RESTING IN SEMI-FREEDMAN'S POSITION. EYES OPEN. TUBE FEEDING FLOWING WELL. IV PATENT. NO ACUTE S/S OF DISTRESS NOTED. WILL CONTINUE TO MONITOR FREQUENTLY. SEIZURE, ASPIRATION, AND FALL PRECAUTIONS IN PLACE. CALL LIGHT WITHIN REACH.
[2017-01-15] MEDS: ZOLPIDEM TARTRATE 5 MG TABLET GT SCH (22:11)
--- NOTE | 2017-01-15 23:20 | NUR ---
ROUNDS PATIENT RESTING IN SEMI-FREEDMAN'S POSITION, SLEEPING. VISIBLE RISE AND FALL OF CHEST NOTED. TUBE FEEDING FLOWING WELL. IV PATENT. NO ACUTE S/S OF DISTRESS NOTED. WILL CONTINUE TO MONITOR FREQUENTLY. SEIZURE, ASPIRATION, AND FALL PRECAUTIONS IN PLACE. CALL LIGHT WITHIN REACH.
[2017-01-16] VITALS: BP 99/67; PULSE 78; RESP 16; TEMP 96.9; O2SAT 97
[2017-01-16] MEDS: METOCLOPRAMIDE HCL 10 MG TABLET GT SCH ×4 (01:15→17:58)
--- NOTE | 2017-01-16 01:20 | NUR ---
ROUNDS PATIENT RESTING IN SEMI-FREEDMAN'S POSITION, SLEEPING. VISIBLE RISE AND FALL OF CHEST NOTED. TUBE FEEDING FLOWING WELL. IV PATENT. NO ACUTE S/S OF DISTRESS NOTED. SEIZURE PADS IN PLACE, ASPIRATION PRECAUTIONS IN PLACE. BED IN LOWEST POSITION, BED ALARM ON, CALL LIGHT WITHIN REACH. WILL CONTINUE TO MONITOR FREQUENTLY.
--- NOTE | 2017-01-16 03:20 | NUR ---
ROUNDS PATIENT RESTING IN SEMI-FREEDMAN'S POSITION, SLEEPING. VISIBLE RISE AND FALL OF CHEST NOTED. TUBE FEEDING FLOWING WELL. IV PATENT. NO ACUTE S/S OF DISTRESS NOTED. SEIZURE,ASPIRATION,AND FALL PRECAUTIONS IN PLACE. CALL LIGHT WITHIN REACH. WILL CONTINUE TO MONITOR FREQUENTLY.
[2017-01-16 04:00] VITALS: BP 107/63; PULSE 76; RESP 16; TEMP 96.9; O2SAT 100
--- NOTE | 2017-01-16 05:20 | NUR ---
ROUNDS PATIENT RESTING IN SEMI-FREEDMAN'S POSITION, SLEEPING. VISIBLE RISE AND FALL OF CHEST NOTED. TUBE FEEDING FLOWING WELL. IV PATENT. NO ACUTE S/S OF DISTRESS NOTED. SEIZURE, ASPIRATION, AND FALL PRECAUTIONS IN PLACE. CALL LIGHT WITHIN REACH. WILL CONTINUE TO MONITOR FREQUENTLY.
[2017-01-16] MEDS: MEROPENEM 500 MG IVPB PREMIX 50 ML IV SCH ×3 (05:22→23:09)
[2017-01-16] MEDS: D5/0.45 NS 1,000 ML IV SCH ×2 (05:27→22:24)
--- NOTE | 2017-01-16 06:35 | NUR ---
CLOSING NOTES NO S/S OF DISTRESS NOTED. WILL ENDORSE CARE TO DAY SHIFT NURSE. FALL PRECAUTIONS IN PLACE, CALL LIGHT WITHIN REACH.
[2017-01-16 08:00] VITALS: BP 120/61; PULSE 77; RESP 17; TEMP 96.7; O2SAT 99
--- NOTE | 2017-01-16 08:00 | NUR ---
INITIAL NOTE PT LAYING IN SEMI FOWLERS , AWAKE, TRACKS MOVEMENT WITH EYES, NONVERBAL, NO S/S OF DISTRESS OR PAIN, EVEN RISE AND AND FALL OF CHEST NOTED, NON LABORED BREATHING, IV TO LEFT HAND INTACT AND INFUSING AT ORDERED RATE, VSS, ALL EXTREMITIES CONTRACTED, SKIN INTACT, JTUBE IN PLACE WITH FEEDING INFUSING AT ORDERED RATE, 15ML RESIDUAL NOTED, SUPRAPUBIC CATHETER IN PLACE, NO LEAKAGE NOTED, ISOLATION/SEIZURE/ ASPIRATION PRECAUTIONS IN PLACE, SAFETY MEASURES IN PLACE, CALL LIGHT WITHIN REACH, BED IN OW POSITION AND LOCKED, WILL CONTINUE TO MONITOR.
[2017-01-16] MEDS: ENOXAPARIN SODIUM 30 MG/0.3 ML SYRINGE SUBCUT SCH (08:44)
[2017-01-16] MEDS: CALCIUM 600/VIT D GT SCH ×2 (08:44→22:00)
[2017-01-16] MEDS: levETIRAcetam 750 MG in NS 100 ML IV SCH ×2 (08:44→22:00)
[2017-01-16] MEDS: ACETAMINOPHEN 650 MG/20.3 ML UDC GT SCH ×2 (08:45→22:00)
[2017-01-16] MEDS: LACOSAMIDE 100 MG TABLET GT SCH ×2 (08:45→22:00)
[2017-01-16] MEDS: OXYBUTYNIN CHLORIDE 5 MG TABLET GT SCH ×2 (08:46→22:00)
[2017-01-16] MEDS: MENTHOL/ZINC OXIDE 113 GM OINT. TP SCH ×4 (08:46→22:02)
--- NOTE | 2017-01-16 10:00 | NUR ---
PT REPOSITIONED TO ALTERNATE SIDE WITH PILLOW SUPPORT TO BILATERAL LOWER EXTREMITIES, PT TOLERATED WELL, OINT APPLIED TO RED NOTED AREAS, BED RETURNED TO LOW POSITION AND LOCKED, CALL LIGHT WITHIN REACH, SAFETY MEASURES IN PLACE, WILL FOLLOW UP
[2017-01-16 12:00] VITALS: BP 100/68; PULSE 78; RESP 18; TEMP 97; O2SAT 95
--- NOTE | 2017-01-16 12:00 | NUR ---
JPORT FLUSHED WITH 50ML WATER, NO RESIDUAL NOTED, PT TOLERATEING WELL. NO SUPRAPUBIC CATHETER LEAKAGE NOTED, SAFETY MEASURES IN PLACE, WILL FOLLOW UP.
--- NOTE | 2017-01-16 12:30 | NUR ---
MOTHER AT BEDSIDE, UPDATED ON PATIENT STATUS AND PLAN OF CARE, WOULD LIKE TO SPEAK TO MD WHEN HE ARRIVES, WILL NOTIFY DR CRONIN WHEN HE MAKES ROUNDS.
--- NOTE | 2017-01-16 14:30 | NUR ---
NEW FEEDING HANGED. ISOSOURCE 1.5 AT 40ML. NO RESIDUAL NOTED, PT TOLERATING FEEDING WELL, SAFETY MEASURES IN PLACE, BED IN LOW POSITION AND LOCKED, WILL FOLLOW UP
--- NOTE | 2017-01-16 16:30 | NUR ---
DR ROSEANNE BILL. PT HAD BM, PT CLEANED AND CHANGED, OINTMENT APPLIED TO BOTTOM, PT REOSTIONED TO OPPOSITE SIDE WITH PILLOW SUPPORT TO BILATERAL LOWER EXTREMITIES, NO S/S OF DISTRESS OR FACIAL GRIMACING NOTED, SAFETY MEASURES IN PLACE, WILL FOLLOW UP
--- NOTE | 2017-01-16 17:00 | NUR ---
MOTHER AT BEDSIDE, DR MCKENZIEIUM STILL IN FACILITY AND UPDATED MOTHER ON PATIENT STATUS AND PLAN OF CARE.
[2017-01-16 17:56] VITALS: BP 127/70; PULSE 81; RESP 16; TEMP 97.4; O2SAT 95
--- NOTE | 2017-01-16 18:00 | NUR ---
PROVIDED ORAL CARE, PT TOLERATED WELL. NO S/S OF ASPIRATION, ABLE TO SPIT OUT ANY EXCESS SPIT. JTUBE FLUSHED WITH 50ML WATER, NO RESIDUAL NOTED, NO S/S OF DISTRESS OR PAIN, SAFETY MEASURES IN PLACE, BED IN LOW POSITION AND LOCKED, WILL FOLLOW UP
--- NOTE | 2017-01-16 19:00 | NUR ---
CLOSING NOTE PT SITTING IN SEMI FOWLERS IN BED, AWAKE, NONVERBAL, TRACKS MOVEMENT WITH EYES, NO S/S OF DISTRESS OR COMPLAINT OF PAIN, ALL NEEDS ATTENDED TO THROUGHOUT SHIFT, IV TO LEFT HAND INTACT AND INFUSING FLUIDS AT ORDERED RATE, NO S/S OF INFILTRATION NOTED, GTUBE FEEDING INFUSING WELL TO ABDOMEN WITH NO LEAKAGE NOTED, SUPRAPUBIC CATHETER IN PLACE AND DRAINING CLEAR YELLOW URINE TO GRAVITY, NO LEAKAGE NOTED, ISOLATION/ SEIZURE/ASPIRATION/ FALL/ AND SAFETY PRECAUTIONS MAINTAINED THROUGH SHIFT, BED IN LOW POSITION AND LOCKED, CALL LIGHT WITHIN REACH, WILL ENDORSE CARE TO FOLLOWING SHIFT.
[2017-01-16 20:00] VITALS: BP 95/55; PULSE 80; RESP 20; TEMP 97.3; O2SAT 99
--- NOTE | 2017-01-16 20:20 | NUR ---
OPENING NOTE PATIENT RESTING IN SEMI-FREEDMAN'S POSITION. NO ACUTE S/S OF DISTRESS NOTED. WILL CONTINUE TO MONITOR FREQUENTLY. SEIZURE, ASPIRATION, AND FALL PRECAUTIONS IN PLACE. CALL LIGHT WITHIN REACH.
[2017-01-16] MEDS: ZOLPIDEM TARTRATE 5 MG TABLET GT SCH (22:01)
[2017-01-17 00:10] VITALS: BP 129/58; PULSE 87; RESP 18; TEMP 98.7; O2SAT 94
--- NOTE | 2017-01-17 00:20 | NUR ---
ROUNDS PATIENT RESTING IN SEMI-FREEDMAN'S POSITION, SLEEPING. VISIBLE RISE AND FALL OF CHEST NOTED. TUBE FEEDING FLOWING WELL. IV PATENT AND FLUIDS RUNNING. NO ACUTE S/S OF DISTRESS NOTED. SEIZURE, ASPIRATION, AND FALL PRECAUTIONS IN PLACE. CALL LIGHT WITHIN REACH. WILL CONTINUE TO MONITOR FREQUENTLY.
[2017-01-17] MEDS: METOCLOPRAMIDE HCL 10 MG TABLET GT SCH ×4 (00:31→18:16)
--- NOTE | 2017-01-17 02:25 | NUR ---
ROUNDS PATIENT RESTING IN SEMI-FREEDMAN'S POSITION, SLEEPING. VISIBLE RISE AND FALL OF CHEST NOTED. NO ACUTE S/S OF DISTRESS NOTED. SEIZURE, ASPIRATION, AND FALL PRECAUTIONS IN PLACE. CALL LIGHT WITHIN REACH. WILL CONTINUE TO MONITOR FREQUENTLY.
--- NOTE | 2017-01-17 04:25 | NUR ---
ROUNDS PATIENT RESTING IN SEMI-FREEDMAN'S POSITION, SLEEPING. VISIBLE RISE AND FALL OF CHEST NOTED. SEIZURE, ASPIRATION, AND FALL PRECAUTIONS IN PLACE. CALL LIGHT WITHIN REACH. WILL CONTINUE TO MONITOR FREQUENTLY.
[2017-01-17 05:00] VITALS: BP 109/73; PULSE 71; RESP 16; TEMP 98.4; O2SAT 94
[2017-01-17] MEDS: MEROPENEM 500 MG IVPB PREMIX 50 ML IV SCH ×3 (05:51→22:18)
--- NOTE | 2017-01-17 06:49 | NUR ---
ROUNDS PATIENT RESTING IN SEMI-FREEDMAN'S POSITION. TUBE FEEDING FLOWING WELL. IV PATENT WITH NO SIGNS OF INFILTRATION. NO ACUTE S/S OF DISTRESS NOTED. SEIZURE, ASPIRATION, AND FALL PRECAUTIONS IN PLACE. CALL LIGHT WITHIN REACH. WILL ENDORSE CARE TO DAY SHIFT NURSE.
[2017-01-17 07:28] LABS: CALCIUM 9.1 mg/dL (8.4-11.0); CREATININE 0.44 mg/dL (0.55-1.30); POTASSIUM 3.9 mmol/L (3.5-5.1)
--- NOTE | 2017-01-17 08:00 | NUR ---
OPENING NOTE PATIENT IS AWAKE, NON VERBAL, PATIENT APPEARS TO GIGGLE OR LAUGH, TRACKS WITH EYES SPORADICALLY BUT DOES NOT SEEM TO COMPREHEND HER SURROUNDINGS. ARMS AND LEGS ARE CONTRACTED. IV INFUSING PER ORDERS.
[2017-01-17 08:13] LABS: BASOPHILS # (AUTO) 0.1 K/uL (0.0-0.2); BASOPHILS % (AUTO) 0.7 % (0.0-2.0); EOSINOPHILS # (AUTO) 0.3 K/uL (0.0-0.4); EOSINOPHILS % (AUTO) 4.2 % (0.0-4.0); HEMATOCRIT 40.3 % (36-48); HEMOGLOBIN 13.5 g/dL (12.0-16.0); LYMPHOCYTES # (AUTO) 3.9 K/uL (1.0-5.5); LYMPHOCYTES % (AUTO) 49.7 % (20.5-51.5); MEAN CORPUSCULAR HEMOGLOBIN 29 pg (27-31); MEAN CORPUSCULAR HGB CONC 34 % (32-36); MEAN CORPUSCULAR VOLUME 87 fL (79.0-98.0); MONOCYTES # (AUTO) 0.8 K/uL (0.0-1.0); MONOCYTES % (AUTO) 10.1 % (1.7-9.3); NEUTROPHILS # (AUTO) 2.8 K/uL (1.8-7.7); NEUTROPHILS % (AUTO) 35.3 % (40.0-70.0); PLATELET COUNT (AUTO) 232 K/uL (130-430); RED BLOOD CELL COUNT(AUTO) 4.62 MIL/uL (4.2-6.2); RED CELL DISTRIBUTION WIDTH 15.8 % (9.0-15.0); WHITE BLOOD COUNT (AUTO) 7.9 K/uL (4.8-10.8)
[2017-01-17] MEDS: OXYBUTYNIN CHLORIDE 5 MG TABLET GT SCH ×2 (09:00→20:49)
[2017-01-17] MEDS: MENTHOL/ZINC OXIDE 113 GM OINT. TP SCH ×4 (09:00→20:52)
[2017-01-17] MEDS: levETIRAcetam 750 MG in NS 100 ML IV SCH ×2 (10:56→20:51)
[2017-01-17] MEDS: CALCIUM 600/VIT D GT SCH ×2 (10:57→20:48)
[2017-01-17] MEDS: ACETAMINOPHEN 650 MG/20.3 ML UDC GT SCH ×2 (10:57→20:49)
[2017-01-17] MEDS: ENOXAPARIN SODIUM 30 MG/0.3 ML SYRINGE SUBCUT SCH (10:57)
[2017-01-17] MEDS: LACOSAMIDE 100 MG TABLET GT SCH ×2 (10:57→20:50)
--- NOTE | 2017-01-17 11:00 | NUR ---
PT MEDICATED PER ORDERS. MOTHER AT BEDSIDE. CASE MANAGEMENT IN TO SEE MOTHER AND DISCUSS HOME CARE NEEDS AND REQUESTS. PT STATUS REMAINS UNCHANGED.
[2017-01-17 12:48] VITALS: BP 112/62; PULSE 83; RESP 17; TEMP 97.8; O2SAT 96
--- NOTE | 2017-01-17 14:00 | NUR ---
DR CRONIN IN TO SEE PATIENT. ORDERS TO GO HOME VIA AMBULANCE WITH DME GIVEN. CM IS AWARE. PT REMAINS IN STABLE CONDITION.
--- NOTE | 2017-01-17 15:48 | NUR ---
PLAN IS TO DC HOME TOMORROW WITH HOME HEALTH AND DME [facility] IS NOT OPEN TODAY TO APPROVE THE TRANSFER OR DME NEEDED AT HOME
--- NOTE | 2017-01-17 15:55 | NUR ---
DC PLANNING: RECEIVED A DC ORDER TO HOME W/ [facility] VIA AMBULANCE. ARRANGED FEEDING PUMP, FEEDING AND SUPPLIES W/ [facility] TEL# [phone], S/W SHAN, ACCORDING TO HER JUST CALL HER UPON DISCHARGE AND THEY WILL DELIVER IT, PREFERABLY IN THE AFTERNOON, BUT THE HOME HEALTH RN WILL BE THE ONE TO INSTRUCT THE MOTHER/FAMILY ON HOW TO USE IT. CALLED [facility] TEL# [phone] , S/W MAYO, SHE SAID SHE DOES NOT HAVE AN NURSE TODAY BUT TOMORROW FOR SURE. TRIED CALLING INSURANCE TO GET AUTH FOR AMBULANCE TRANSPORT-[facility] RETIRED/[facility] TEL# --CLOSED ON WEEKENDS. DCP WILL TRY TOMORROW.
[2017-01-17 17:17] VITALS: BP 93/55; PULSE 82; RESP 16; TEMP 97; O2SAT 97
[2017-01-17 19:00] VITALS: BP 133/84; PULSE 84; RESP 16; TEMP 97; O2SAT 98
[2017-01-17 20:00] VITALS: BP 133/84; PULSE 84; RESP 16; TEMP 97; O2SAT 98
[2017-01-17] MEDS: ZOLPIDEM TARTRATE 5 MG TABLET GT SCH (20:47)
[2017-01-17] MEDS: D5/0.45 NS 1,000 ML IV SCH (22:12)
[2017-01-18] MEDS: D5/0.45 NS 1,000 ML IV SCH ×2 (00:15→17:05)
[2017-01-18 00:17] VITALS: BP 111/76; PULSE 95; RESP 16; TEMP 97.3; O2SAT 94
[2017-01-18] MEDS: METOCLOPRAMIDE HCL 10 MG TABLET GT SCH ×4 (00:20→18:11)
[2017-01-18] MEDS: MEROPENEM 500 MG IVPB PREMIX 50 ML IV SCH ×3 (05:55→22:08)
[2017-01-18 08:00] VITALS: BP 109/63; PULSE 98; RESP 22; TEMP 98; O2SAT 99
--- NOTE | 2017-01-18 08:00 | NUR ---
OPENING NOTE PATIENT IS AWAKE, NON VERBAL. MOANING. TRACKING WITH EYES BUT NOT RESPONDING WITH PURPOSE TO VERBAL STIMULI. ALL FOUR LIMBS CONTRACTED. PULSES PALPABLE. LUNGS CLEAR.
[2017-01-18] MEDS: levETIRAcetam 750 MG in NS 100 ML IV SCH ×2 (09:00→22:06)
--- NOTE | 2017-01-18 09:30 | NUR ---
LAB NOTIFIED ABOUT MISSING KEPPRA IV
[2017-01-18] MEDS: MENTHOL/ZINC OXIDE 113 GM OINT. TP SCH ×4 (09:45→22:07)
[2017-01-18] MEDS: OXYBUTYNIN CHLORIDE 5 MG TABLET GT SCH ×2 (09:46→22:04)
[2017-01-18] MEDS: ACETAMINOPHEN 650 MG/20.3 ML UDC GT SCH ×2 (09:46→22:05)
[2017-01-18] MEDS: LACOSAMIDE 100 MG TABLET GT SCH ×2 (09:46→22:05)
[2017-01-18] MEDS: CALCIUM 600/VIT D GT SCH ×2 (09:47→22:04)
[2017-01-18] MEDS: ENOXAPARIN SODIUM 30 MG/0.3 ML SYRINGE SUBCUT SCH (09:47)
--- NOTE | 2017-01-18 11:00 | NUR ---
PATIENT MEDICATED ORDERED, PATIENT IS CALM, QUIET NO SIGNS OF DISTRESS
[2017-01-18 12:15] VITALS: BP 96/63; PULSE 74; RESP 18; TEMP 96.8; O2SAT 100
--- NOTE | 2017-01-18 12:50 | NUR ---
DISCHARGE ORDER Called [facility] [phone] spoke with Danielle in intake dept who stated signed order was not received. MANDY made aware pending signed order for Tube Feeding with settings for delivery arrangements to be made. Addendum: 01/18/17 at 1731 by Melinda CARRIZALES Spoke with Danielle at [facility] who spoke with patient bernardino Soria who declined GT feeding order. Spoke with Estella [phone] who stated she receives fibersource from [place]. Called [place] [phone] spoke with Fabiola at [facility] who confirmed 30day supply of fibersource continued being delivery to patient home every 20-25days. Estella confirmed patient has couple of cases at home for discharge. Estella made aware and understood order needed to continue to be processed for feeding equipment and supplies. Danielle at [facility] confirmed delivery today between 8-10pm. Spoke with home health nurse Shannen at [facility] who scheduled herself to see patient tomorrow between 1-1:30pm and requested [facility] to arrange ambulance transport between 10-11am. Addendum: 01/18/17 at 1737 by Melinda CARRIZALES Called [facility] ambulance [phone] spoke with Jeri Lloyd arranged S transport pickling grader 11am. SURI Vanessa made aware.
--- NOTE | 2017-01-18 12:52 | NUR ---
SUPRAPUBIC CATHETER DRESSING CHANGED. FOUL URINE SMELL NOTED FROM DRESSINGS
--- NOTE | 2017-01-18 13:51 | NUR ---
PATIENT REMAINS LETHARGIC, OBTUNDED. NO SIGNS OF DISTRESS OR PAIN AT THIS TIME. CALL FROM MOTHER ASKING WHEN PT TO BE DISCHARGED. ADVISED HER THERE IS NO ACTUAL ORDERS FOR DISCHARGE BECAUSE CASE MANAGEMENT IS WORKING WITH INSURANCE AND FOR DME AND ORDERS
[2017-01-18 16:14] VITALS: BP 99/59; PULSE 66; RESP 18; TEMP 97.3; O2SAT 99
--- NOTE | 2017-01-18 16:22 | NUR ---
PATIENT CLEANED OF FECAL INCONTINENCE, Z GUARD AND CALMOSEPTINE APPLIED TO REDDENED AREAS
[2017-01-18 19:00] VITALS: BP 98/52; PULSE 62; RESP 18; TEMP 97.1; O2SAT 99
--- NOTE | 2017-01-18 19:15 | NUR ---
change of shift,pt's initial assessment.pt.presents g/j tube;isosource:1.5 feed.supra-pubic catheter;patent. iv fluids via lt.hand patent intact:iv fluids infusing.apprised per pt's report that pt.february b trx 2 home ;01/19/17.new equipment 2 b sent to family home.call light w/i pt's reach.
[2017-01-18 20:00] VITALS: BP 98/52; PULSE 62; RESP 16; TEMP 97.1; O2SAT 98
--- NOTE | 2017-01-18 20:00 | NUR ---
pt.assessed.v/s assessed.values w/in normal limits.b/p presents low value but /in pt's normal limits.g/j tube assessed; h20 flush:tube patent.supra-pubic catheter assessed:patent.no distress/discomfort manifested.call light w/in pt's reach.
--- NOTE | 2017-01-18 21:00 | NUR ---
2100p medications administerd via g/j tube.tube patent.
--- NOTE | 2017-01-18 22:00 | NUR ---
pt.assessed.pt.repositioned.g/j tube assessed.;patent,supra-pubic catheter assessed;patent,iv fluids infusing.no distress /discomfort manifested.call light w/in pt's reach.
[2017-01-18] MEDS: ZOLPIDEM TARTRATE 5 MG TABLET GT SCH (22:04)
[2017-01-19] VITALS: BP 90/52; PULSE 82; RESP 16; TEMP 97.4; O2SAT 95
--- NOTE | 2017-01-19 | NUR ---
pt.assessed.v/s assessed:values w/in normal limits.b/p presents low value.pt.repositioned.g/j-tube assessed;patent supra-pubic catheter assessed;patent.iv fluids infusing.no distress/discomfort manifested.call light w/in pt's reach.
[2017-01-19] MEDS: METOCLOPRAMIDE HCL 10 MG TABLET GT SCH ×2 (00:09→06:02)
--- NOTE | 2017-01-19 02:00 | NUR ---
pt.assessed.pt.repositioned.g/j tube assessed;patent.supra-pubic cath assessed;patent.iv fluids infusing. call light w/in the pt's reach.no distress/discomfort manifested.
[2017-01-19] MEDS: D5/0.45 NS 1,000 ML IV SCH (02:55)
[2017-01-19 04:00] VITALS: BP 100/60; PULSE 77; RESP 16; TEMP 96.9; O2SAT 97
--- NOTE | 2017-01-19 04:00 | NUR ---
pt.assessed.pt.repositioned.v/s assessed:values w/in normal limits:b/p tendency 2 b low valued but w/in pt's normal limits.g/j tube assessed;h2o flush administered:tube patent.feed infusing.iv fluids infusing.supra-pubic catheter patent.call light place w/in pt's reach. Addendum: 01/19/17 at 0451 by Jp Villeda RN no distress/discomfort manifested.
[2017-01-19] MEDS: MEROPENEM 500 MG IVPB PREMIX 50 ML IV SCH (06:03)
--- NOTE | 2017-01-19 07:30 | NUR ---
OPENING NOTE RECEIVED REPORT AT BEDSIDE. PT IS CONTRACTED AND APHASIC, BUT APPEARS COMFORTABLE. SHE SEEMS TO REACT TO HER NAME BY I AM UNABLE TO FULLY ASSESS IF SHE IS ORIENTED BY NAME AT THIS TIME. IV IS PATENT, G-TUBE/J-TUBE IS FLUSHING,L SEIZURE AND FALL PRECAUTIONS ARE IN PLACE.
[2017-01-19 08:04] VITALS: BP 107/55; PULSE 71; RESP 16; TEMP 96.2; O2SAT 99
[2017-01-19 09:00] VITALS: BP 115/73; PULSE 80; RESP 18; TEMP 96.5; O2SAT 99
--- NOTE | 2017-01-19 09:00 | NUR ---
ROUNDS PT IS SLEEPING AND APPEARS COMFORTABLE. I ROTATED PILLOW POSITION FOR COMFORT. VS STABLE
[2017-01-19 09:02] VITALS: BP 115/73; PULSE 80; RESP 10; TEMP 97.5; O2SAT 99
[2017-01-19] MEDS: ENOXAPARIN SODIUM 30 MG/0.3 ML SYRINGE SUBCUT SCH (09:20)
[2017-01-19] MEDS: CALCIUM 600/VIT D GT SCH (09:20)
[2017-01-19] MEDS: LACOSAMIDE 100 MG TABLET GT SCH (09:20)
[2017-01-19] MEDS: OXYBUTYNIN CHLORIDE 5 MG TABLET GT SCH (09:23)
[2017-01-19] MEDS: ACETAMINOPHEN 650 MG/20.3 ML UDC GT SCH (09:27)
[2017-01-19] MEDS: levETIRAcetam 750 MG in NS 100 ML IV SCH (09:27)
[2017-01-19] MEDS: MENTHOL/ZINC OXIDE 113 GM OINT. TP SCH (09:27)
--- NOTE | 2017-01-19 10:00 | NUR ---
Hygiene and wound photos taken
--- NOTE | 2017-01-19 11:15 | NUR ---
Wound Re-Evaluation: Patient was awake, non-verbal, does not track with eyes, and received in a [place] bed with an IsoFlex DEEPALI mattress with low air-loss therapy initiated. Aiden score is an 11. Skin is poor; Incontinent of bowel; All extremities contracted. Intrinsic Factors that delay wound healing: Chronic Encephalopathy. Extrinsic factors that decrease wound healing: decreased mobility. Skin care performed by day shift nurse. Assessment provided by SURI Snider. Wound Assessment: 1. G-Tube Dolly-Site and Surrounding Tissue Erythema and non-intact skin from from G-Tube leakage/drainage, present on admission. 100% pink tissue, no odor, no drainage. Surrounding tissue erythematous. New PEG placed recently. Recommend continue: Cleanse area with normal saline. Pat dry. Put Calmoseptine cream onto involved area. Cover with drain sponge. Perform site care q shift and as needed for dressing soiling or dislodgement. 2. Right Lateral Heel: Blanchable redness, with dark discoloration, present on admission. No odor, no drainage. 3. Right Medial Heel: Blanchable redness, with 10% dark discoloration, 90% light pink tissue, hard feel, present on admission. No odor, no drainage. Recommend continue: Elevate, offload and float heels at all times with pillows. Place a pillow between the knees. 4. Right Dorsal Foot: Appears to be a small, chronic wound with scar tissue, present on admission. Wound bed has 90% brown eschar, 10% pink tissue. Dry, stable. No odor, no drainage. Recommend continue: Cover with foam dressing. Perform wound daily, and as needed for dressing soiling or dislodgment. 5. Sacral and buttocks Areas: Appears to be redness from IAD, present on admission. Recommend continue: Cleanse sites with mild soap and water. Pat dry. Use Calmoseptine cream on involved areas qid and prn for soiling. Also recommend continue: Reposition patient side to side only every two hours with pillow support, and off-load pressure areas with pillows for pressure re-distribution. Perform skin care and monitor skin integrity q shift. Elevate, offload and float heels at all times with pillows. Use Calmoseptine cream on reddened and moisture susceptible areas qid and prn for soiling. Maintain patient on a low air-loss mattress.
--- NOTE | 2017-01-19 11:26 | NUR ---
closing note/discharge pt prepared for discharge: feeing and iv d/c. g-tube and j-tube flushing well. pt vitals stable, her bp is currently 103/57, which is normal for this pt. pt is being transported home by [facility]
[2017-01-19 12:34] VITALS: BP 103/57; PULSE 57; RESP 17; TEMP 97; O2SAT 87
--- NOTE | 2017-01-20 14:26 | NUR ---
Discharge Follow Up Phone Call: ELEVATOR CONSTRUCTOR HELPER called and spoke with pt's mother, Estella ([phone]). Pt's mother states that pt is doing well; there are no questions regarding discharge or medication instructions; pt received first visit from [facility] on 01/19/17; pt received supplies from [facility] on 01/19/17; pt's mother will schedule pt's follow up appointment with PCP, Dr. Olson. ELEVATOR CONSTRUCTOR HELPER offered to assist with scheduling appointment, but pt's mother states that she will schedule the appointment. Pt's mother did not express any other needs or concerns and denied the need for additional follow up at this time. No further follow up phone calls required at this time.
== END 2017-01-19 11:40 | disposition home health service (06) | DRG 393 ==
LOC: SED 17:40 → SMU 22:38
PROVIDERS: ADMIT Family Medicine; ATTEND Family Medicine
PROC: 0D2DXUZ Change Feeding Device in Lower Intestinal Tract, External Approach (ICD-10-PCS; principal; 2017-01-15 09:30)
DX: K94.23 Gastrostomy malfunction (principal); G93.40 Encephalopathy, unspecified; G82.50 Quadriplegia, unspecified; N39.0 Urinary tract infection, site not specified; L03.90 Cellulitis, unspecified; T83.090A Other mechanical complication of cystostomy catheter, initial encounter; G40.909 Epilepsy, unspecified, not intractable, without status epilepticus; R13.10 Dysphagia, unspecified; K94.13 Enterostomy malfunction; Y83.3 Surgical operation with formation of external stoma as the cause of abnormal reaction of the patient, or of later complication, without mention of misadventure at the time of the procedure; Y73.2 Prosthetic and other implants, materials and accessory gastroenterology and urology devices associated with adverse incidents; N31.9 Neuromuscular dysfunction of bladder, unspecified; K31.84 Gastroparesis; Z90.49 Acquired absence of other specified parts of digestive tract; Z74.01 Bed confinement status; Z87.440 Personal history of urinary (tract) infections; Z87.820 Personal history of traumatic brain injury
CPT/HCPCS: 36415; 43760; 74240-TC; 76700-TC; 80048; 80053; 80074; 81000-TC; 82103; 82728; 83516; 83540-TC; 83550-TC; 85025; 85610-TC; 86038; 87081; 87086; 87186-TC; 96360; 99285; J1650; J1953; J2175; J2185; J2250; J7030; J7040; J8597; Q9963

== ENCOUNTER 2017-02-10 15:55 | Inpatient (IN) | payer OTHER ==
[~2017-02-10] VITALS: Ht 160 cm; Wt 61.7 kg
[2017-02-10 15:55] VITALS: BP 104/68; PULSE 69; RESP 18; TEMP 97.5; O2SAT 98
[~2017-02-10 15:55] MED LIST changes: +ZOLP10TA2 PO
[2017-02-10] MEDS ORDERED: GASTROGRAFIN 120 ML ONE (16:23)
[2017-02-10] MEDS ORDERED: NACL 0.9% 1,000 ML IV ONE (16:34)
[2017-02-10 17:04] LABS: BASOPHILS # (AUTO) 0.1 K/uL (0.0-0.2); BASOPHILS % (AUTO) 1.7 % (0.0-2.0); EOSINOPHILS # (AUTO) 0.2 K/uL (0.0-0.4); EOSINOPHILS % (AUTO) 3.2 % (0.0-4.0); HEMATOCRIT 41.1 % (36-48); HEMOGLOBIN 13.8 g/dL (12.0-16.0); LYMPHOCYTES # (AUTO) 2.2 K/uL (1.0-5.5); LYMPHOCYTES % (AUTO) 32.3 % (20.5-51.5); MEAN CORPUSCULAR HEMOGLOBIN 29 pg (27-31); MEAN CORPUSCULAR HGB CONC 34 % (32-36); MEAN CORPUSCULAR VOLUME 88 fL (79.0-98.0); MONOCYTES # (AUTO) 0.5 K/uL (0.0-1.0); MONOCYTES % (AUTO) 7.1 % (1.7-9.3); NEUTROPHILS # (AUTO) 3.8 K/uL (1.8-7.7); NEUTROPHILS % (AUTO) 55.7 % (40.0-70.0); PLATELET COUNT (AUTO) 292 K/uL (130-430); RED CELL DISTRIBUTION WIDTH 15.6 % (9.0-15.0); WHITE BLOOD COUNT (AUTO) 6.8 K/uL (4.8-10.8)
[2017-02-10 17:08] LABS: CREATININE 0.29 mg/dL (0.55-1.30); POTASSIUM 3.6 mmol/L (3.5-5.1)
[2017-02-10 17:12] LABS: PROTHROMBIN TIME 10.9 SECS (9.5-12.5)
[2017-02-10 17:13] LABS: ALBUMIN 3.3 g/dL (3.4-4.8); TOTAL BILIRUBIN 0.4 mg/dL (0.0-1.0); TOTAL PROTEIN, SERUM 7.9 g/dL (6.4-8.3)
[2017-02-10 17:15] LABS: BILIRUBIN,URINE NEGATIVE (NEGATIVE); BLOOD, URINE NEGATIVE (NEGATIVE); CLARITY/URINE CLOUDY (CLEAR); COLOR,URINE YELLOW (YELLOW); GLUCOSE,URINE NEGATIVE (NEGATIVE); KETONES,URINE TRACE (NEGATIVE); LEUKOCYTE ESTERASE ,URINE TRACE (NEGATIVE); NITRITE, URINE NEGATIVE (NEGATIVE); PROTEIN URINE NEGATIVE (NEGATIVE); UROBILINOGEN,URINE 0.2 (0.2-1.0)
[2017-02-10 17:30] LABS: BACTERIA,URINE MODERATE /HPF (None Seen); RBC,URINE 0-3 /HPF (0-3)
[2017-02-10 17:31] LABS: CALCIUM OXALATE CRYSTALS,UR 0-10 /HPF (None Seen); MUCUS,URINE None Seen /LPF (None Seen); URINE AMORPHOUS PHOSPHATES 3+ /HPF (None Seen); YEAST,URINE Many /HPF (None Seen)
[2017-02-10 19:11] VITALS: BP 100/57; PULSE 71; RESP 18; TEMP 91.7; TEMP 97.1; O2SAT 100
[2017-02-10] MEDS ORDERED: MILK OF MAGNESIA 30 ML UDC PO PRN (20:00)
[2017-02-10] MEDS ORDERED: LevALBUTEROL HCL 1.25 MG/0.5 ML *CONC.* VIAL.NEB (XOPENEX CONC.) INH PRN (20:00)
[2017-02-10] MEDS ORDERED: ONDANSETRON HCL 4 MG/2 ML VIAL IVP PRN (20:00)
[2017-02-10] MEDS ORDERED: ZOLPIDEM TARTRATE 5 MG TABLET PO SCH (20:00)
[2017-02-10] MEDS: POTASSIUM CHLORIDE 20 MEQ in D5/0.45 NS 1,000 ML IV SCH (20:50)
[2017-02-10] MEDS: LACOSAMIDE 100 MG TABLET GT SCH ×2 (21:00→21:59)
[2017-02-10] MEDS ORDERED: OXYBUTYNIN CHLORIDE 5 MG TABLET PO SCH (21:00)
[2017-02-10] MEDS: ACETAMINOPHEN 650 MG/20.3 ML UDC GT SCH ×2 (21:00→21:59)
[2017-02-10] MEDS ORDERED: levETIRAcetam 500 MG TABLET PO SCH (21:00)
[2017-02-10] MEDS: levETIRAcetam 500 MG TABLET GT SCH (21:59)
[2017-02-10] MEDS: PANTOPRAZOLE SODIUM 40 MG/VIAL (PROTONIX) IVP SCH (21:59)
[2017-02-10] MEDS ORDERED: COMMUNICATION ORDER XX ONE (22:00)
[2017-02-10] MEDS ORDERED: MILK OF MAGNESIA 30 ML UDC GT PRN (22:00)
[2017-02-10] MEDS: ENOXAPARIN SODIUM 40 MG/0.4 ML SYRINGE SUBCUT SCH (22:00)
[2017-02-10] MEDS: METOCLOPRAMIDE HCL 10 MG TABLET GT SCH (22:10)
[2017-02-10] MEDS: LevALBUTEROL HCL 1.25 MG/0.5 ML *CONC.* VIAL.NEB (XOPENEX CONC.) INH SCH (23:39)
[2017-02-11] VITALS (7 sets, daily range): BP systolic 92–108; BP diastolic 58–75; PULSE 72–89; RESP 15–18; TEMP 96.9–98.2; O2SAT 95–98; Ht 160 cm; Wt 61.7 kg
[2017-02-11] MEDS: METOCLOPRAMIDE HCL 10 MG TABLET GT SCH ×4 (06:06→18:00)
[2017-02-11] MEDS: LevALBUTEROL HCL 1.25 MG/0.5 ML *CONC.* VIAL.NEB (XOPENEX CONC.) INH SCH ×3 (08:07→23:41)
[2017-02-11] MEDS ORDERED: OXYBUTYNIN CHLORIDE 5 MG XL TAB PO SCH (09:00)
[2017-02-11] MEDS ORDERED: DOCUSATE SODIUM 100 MG/10 ML UDC GT PRN (09:30)
[2017-02-11] MEDS ORDERED: BISACODYL 10 MG/SUPPOSITORY RC ONE (09:30)
[2017-02-11] MEDS ORDERED: MINERAL OIL 30 ML UDC GT ONE (09:30)
[2017-02-11] MEDS: ACETAMINOPHEN 650 MG/20.3 ML UDC GT SCH ×2 (09:49→21:42)
[2017-02-11] MEDS: PANTOPRAZOLE SODIUM 40 MG/VIAL (PROTONIX) IVP SCH ×2 (09:50→21:43)
[2017-02-11] MEDS: levETIRAcetam 500 MG TABLET GT SCH ×2 (09:51→21:45)
[2017-02-11] MEDS: LACOSAMIDE 100 MG TABLET GT SCH ×2 (09:51→21:46)
[2017-02-11] MEDS: OXYBUTYNIN CHLORIDE 5 MG TABLET GT SCH ×2 (09:52→21:46)
[2017-02-11] MEDS: ZOLPIDEM TARTRATE 5 MG TABLET GT SCH (09:52)
[2017-02-11] MEDS: POTASSIUM CHLORIDE 20 MEQ in D5/0.45 NS 1,000 ML IV SCH (09:53)
[2017-02-11] MEDS: ENOXAPARIN SODIUM 40 MG/0.4 ML SYRINGE SUBCUT SCH (21:44)
[2017-02-12] MEDS: METOCLOPRAMIDE HCL 10 MG TABLET GT SCH ×4 (00:02→17:54)
[2017-02-12 00:08] VITALS: BP 111/68; PULSE 74; RESP 16; TEMP 98.6; O2SAT 96
[2017-02-12] MEDS: POTASSIUM CHLORIDE 20 MEQ in D5/0.45 NS 1,000 ML IV SCH ×2 (02:58→17:44)
[2017-02-12 05:00] VITALS: BP 116/74; PULSE 81; RESP 18; TEMP 98.6; O2SAT 97
[2017-02-12] MEDS: LevALBUTEROL HCL 1.25 MG/0.5 ML *CONC.* VIAL.NEB (XOPENEX CONC.) INH SCH ×2 (07:27→15:16)
[2017-02-12 08:00] VITALS: BP 101/71; PULSE 83; RESP 16; TEMP 97.4; O2SAT 96
[2017-02-12] MEDS: levETIRAcetam 500 MG TABLET GT SCH ×2 (08:37→21:19)
[2017-02-12] MEDS: POLYETHYLENE GLYCOL 3350, 17 GM/ POWD.PACK GT SCH (08:37)
[2017-02-12] MEDS: OXYBUTYNIN CHLORIDE 5 MG TABLET GT SCH ×2 (08:37→21:18)
[2017-02-12] MEDS: ACETAMINOPHEN 650 MG/20.3 ML UDC GT SCH ×2 (08:38→21:19)
[2017-02-12] MEDS: ZOLPIDEM TARTRATE 5 MG TABLET GT SCH ×2 (08:38→21:18)
[2017-02-12] MEDS: LACOSAMIDE 100 MG TABLET GT SCH ×2 (08:38→21:18)
[2017-02-12] MEDS: PANTOPRAZOLE SODIUM 40 MG/VIAL (PROTONIX) IVP SCH ×2 (08:42→21:19)
[2017-02-12 09:47] LABS: ALBUMIN 3.1 g/dL (3.4-4.8); BILIRUBIN,DIRECT 0.2 mg/dL (0.0-0.3); TOTAL BILIRUBIN 0.6 mg/dL (0.0-1.0); TOTAL PROTEIN, SERUM 7.3 g/dL (6.4-8.3)
[2017-02-12] MEDS ORDERED: MENTHOL/ZINC OXIDE 113 GM OINT. TP PRN (12:15)
[2017-02-12 12:19] VITALS: BP 99/68; PULSE 87; RESP 16; TEMP 98.2; O2SAT 96
[2017-02-12 13:07] LABS: HEPATITIS A AB, IgM Negative (Negative); HEPATITIS B CORE AB, IgM Negative (Negative); HEPATITIS B SURFACE AG Negative (Negative)
[2017-02-12] MEDS: MENTHOL/ZINC OXIDE 113 GM OINT. TP SCH ×3 (13:44→21:30)
[2017-02-12 16:37] VITALS: BP 118/78; PULSE 96; RESP 20; TEMP 98.2; O2SAT 100
[2017-02-12] MEDS ORDERED: MAGNESIUM CITRATE 300 ML ORAL SOLUTION PO ONE (17:00)
[2017-02-12 19:24] VITALS: BP 99/61; PULSE 95; RESP 19; TEMP 97.7; O2SAT 94
[2017-02-12] MEDS: ENOXAPARIN SODIUM 40 MG/0.4 ML SYRINGE SUBCUT SCH (21:19)
[2017-02-13 01:02] VITALS: BP 104/66; PULSE 84; RESP 16; TEMP 98.4; O2SAT 96
[2017-02-13] MEDS: LevALBUTEROL HCL 1.25 MG/0.5 ML *CONC.* VIAL.NEB (XOPENEX CONC.) INH SCH ×4 (03:16→22:46)
[2017-02-13 04:07] VITALS: BP 111/73; PULSE 88; RESP 18; TEMP 98.7; O2SAT 93
[2017-02-13] MEDS: METOCLOPRAMIDE HCL 10 MG TABLET GT SCH ×4 (04:54→18:26)
[2017-02-13] MEDS: POTASSIUM CHLORIDE 20 MEQ in D5/0.45 NS 1,000 ML IV SCH ×2 (04:55→17:18)
[2017-02-13] MEDS: MENTHOL/ZINC OXIDE 113 GM OINT. TP SCH ×4 (09:00→20:42)
[2017-02-13] MEDS: LACOSAMIDE 100 MG TABLET GT SCH ×2 (10:09→20:40)
[2017-02-13] MEDS: PANTOPRAZOLE SODIUM 40 MG/VIAL (PROTONIX) IVP SCH ×2 (10:09→20:40)
[2017-02-13] MEDS: POLYETHYLENE GLYCOL 3350, 17 GM/ POWD.PACK GT SCH (10:10)
[2017-02-13] MEDS: levETIRAcetam 500 MG TABLET GT SCH ×2 (10:10→20:42)
[2017-02-13] MEDS: ACETAMINOPHEN 650 MG/20.3 ML UDC GT SCH ×2 (10:10→20:40)
[2017-02-13] MEDS: OXYBUTYNIN CHLORIDE 5 MG TABLET GT SCH ×2 (10:10→20:40)
[2017-02-13 10:35] VITALS: BP 104/63; PULSE 95; RESP 18; TEMP 97.6; O2SAT 97
[2017-02-13 11:46] VITALS: BP 112/78; PULSE 91; RESP 14; TEMP 97.7; O2SAT 93
[2017-02-13 16:40] VITALS: BP 116/73; PULSE 87; RESP 20; TEMP 98.2; O2SAT 94
[2017-02-13] MEDS: ZOLPIDEM TARTRATE 5 MG TABLET GT SCH (20:41)
[2017-02-13] MEDS: ENOXAPARIN SODIUM 40 MG/0.4 ML SYRINGE SUBCUT SCH (20:41)
[2017-02-14] VITALS (8 sets, daily range): BP systolic 94–115; BP diastolic 43–77; PULSE 81–95; RESP 14–18; TEMP 97–98.9; O2SAT 93–98
[2017-02-14] MEDS: METOCLOPRAMIDE HCL 10 MG TABLET GT SCH ×5 (01:05→23:10)
[2017-02-14] MEDS: POTASSIUM CHLORIDE 20 MEQ in D5/0.45 NS 1,000 ML IV SCH ×2 (05:39→18:00)
[2017-02-14 07:10] LABS: BASOPHILS # (AUTO) 0.1 K/uL (0.0-0.2); BASOPHILS % (AUTO) 1.1 % (0.0-2.0); EOSINOPHILS # (AUTO) 0.1 K/uL (0.0-0.4); EOSINOPHILS % (AUTO) 1.9 % (0.0-4.0); HEMATOCRIT 38.6 % (36-48); HEMOGLOBIN 12.8 g/dL (12.0-16.0); LYMPHOCYTES # (AUTO) 2.2 K/uL (1.0-5.5); LYMPHOCYTES % (AUTO) 38.2 % (20.5-51.5); MEAN CORPUSCULAR HEMOGLOBIN 29 pg (27-31); MEAN CORPUSCULAR HGB CONC 33 % (32-36); MEAN CORPUSCULAR VOLUME 88 fL (79.0-98.0); MONOCYTES # (AUTO) 0.4 K/uL (0.0-1.0); MONOCYTES % (AUTO) 7.4 % (1.7-9.3); NEUTROPHILS # (AUTO) 3.1 K/uL (1.8-7.7); NEUTROPHILS % (AUTO) 51.4 % (40.0-70.0); PLATELET COUNT (AUTO) 263 K/uL (130-430); RED BLOOD CELL COUNT(AUTO) 4.37 MIL/uL (4.2-6.2); RED CELL DISTRIBUTION WIDTH 15.7 % (9.0-15.0); WHITE BLOOD COUNT (AUTO) 5.9 K/uL (4.8-10.8)
[2017-02-14 07:31] LABS: CALCIUM 8.7 mg/dL (8.4-11.0); CREATININE 0.36 mg/dL (0.55-1.30); PHOSPHORUS 3.1 mg/dL (2.7-4.5); POTASSIUM 3.7 mmol/L (3.5-5.1)
[2017-02-14] MEDS: LevALBUTEROL HCL 1.25 MG/0.5 ML *CONC.* VIAL.NEB (XOPENEX CONC.) INH SCH ×3 (08:14→23:00)
[2017-02-14] MEDS: LACOSAMIDE 100 MG TABLET GT SCH ×2 (09:30→23:06)
[2017-02-14] MEDS: POLYETHYLENE GLYCOL 3350, 17 GM/ POWD.PACK GT SCH (09:30)
[2017-02-14] MEDS: ACETAMINOPHEN 650 MG/20.3 ML UDC GT SCH ×2 (09:30→23:05)
[2017-02-14] MEDS: PANTOPRAZOLE SODIUM 40 MG/VIAL (PROTONIX) IVP SCH ×2 (09:30→23:05)
[2017-02-14] MEDS: OXYBUTYNIN CHLORIDE 5 MG TABLET GT SCH ×2 (09:30→23:06)
[2017-02-14] MEDS: MENTHOL/ZINC OXIDE 113 GM OINT. TP SCH ×4 (09:31→23:08)
[2017-02-14] MEDS: levETIRAcetam 500 MG TABLET GT SCH ×2 (09:31→23:05)
[2017-02-14] MEDS: ZOLPIDEM TARTRATE 5 MG TABLET GT SCH (23:06)
[2017-02-14] MEDS: ENOXAPARIN SODIUM 40 MG/0.4 ML SYRINGE SUBCUT SCH (23:07)
[2017-02-15 04:27] VITALS: BP 116/73; PULSE 81; RESP 15; TEMP 98.7; O2SAT 96
[2017-02-15] MEDS: METOCLOPRAMIDE HCL 10 MG TABLET GT SCH ×3 (06:00→16:48)
[2017-02-15 07:29] LABS: BASOPHILS # (AUTO) 0.1 K/uL (0.0-0.2); BASOPHILS % (AUTO) 0.8 % (0.0-2.0); EOSINOPHILS # (AUTO) 0.1 K/uL (0.0-0.4); EOSINOPHILS % (AUTO) 2.3 % (0.0-4.0); HEMATOCRIT 40.1 % (36-48); HEMOGLOBIN 13.3 g/dL (12.0-16.0); LYMPHOCYTES # (AUTO) 2.5 K/uL (1.0-5.5); LYMPHOCYTES % (AUTO) 39.2 % (20.5-51.5); MEAN CORPUSCULAR HEMOGLOBIN 30 pg (27-31); MEAN CORPUSCULAR HGB CONC 33 % (32-36); MEAN CORPUSCULAR VOLUME 89 fL (79.0-98.0); MONOCYTES # (AUTO) 0.7 K/uL (0.0-1.0); MONOCYTES % (AUTO) 10.2 % (1.7-9.3); NEUTROPHILS % (AUTO) 47.5 % (40.0-70.0); PLATELET COUNT (AUTO) 252 K/uL (130-430); RED BLOOD CELL COUNT(AUTO) 4.49 MIL/uL (4.2-6.2); RED CELL DISTRIBUTION WIDTH 15.5 % (9.0-15.0); WHITE BLOOD COUNT (AUTO) 6.4 K/uL (4.8-10.8)
[2017-02-15] MEDS: POTASSIUM CHLORIDE 20 MEQ in D5/0.45 NS 1,000 ML IV SCH ×2 (07:33→20:27)
[2017-02-15 07:41] LABS: CREATININE 0.37 mg/dL (0.55-1.30); POTASSIUM 4.2 mmol/L (3.5-5.1)
[2017-02-15] MEDS: LevALBUTEROL HCL 1.25 MG/0.5 ML *CONC.* VIAL.NEB (XOPENEX CONC.) INH SCH ×3 (07:42→23:59)
[2017-02-15] MEDS: PANTOPRAZOLE SODIUM 40 MG/VIAL (PROTONIX) IVP SCH ×2 (08:16→20:27)
[2017-02-15] MEDS: MENTHOL/ZINC OXIDE 113 GM OINT. TP SCH ×4 (08:17→20:29)
[2017-02-15] MEDS: levETIRAcetam 500 MG TABLET GT SCH ×2 (09:00→20:28)
[2017-02-15] MEDS: POLYETHYLENE GLYCOL 3350, 17 GM/ POWD.PACK GT SCH (09:00)
[2017-02-15] MEDS: OXYBUTYNIN CHLORIDE 5 MG TABLET GT SCH ×2 (09:00→20:28)
[2017-02-15] MEDS: LACOSAMIDE 100 MG TABLET GT SCH ×2 (09:00→20:29)
[2017-02-15] MEDS: ACETAMINOPHEN 650 MG/20.3 ML UDC GT SCH ×2 (09:00→20:28)
[2017-02-15 12:01] VITALS: BP 108/75; PULSE 75; RESP 16; TEMP 97; O2SAT 90
[2017-02-15 16:37] VITALS: BP 112/72; PULSE 72; RESP 18; TEMP 98; O2SAT 98
[2017-02-15 16:58] VITALS: BP 91/65; PULSE 79; RESP 15; TEMP 92.7; O2SAT 96
[2017-02-15] MEDS: ZOLPIDEM TARTRATE 5 MG TABLET GT SCH (20:28)
[2017-02-15 20:29] VITALS: BP 90/58; PULSE 88; RESP 16; TEMP 96.2; O2SAT 95
[2017-02-15] MEDS: ENOXAPARIN SODIUM 40 MG/0.4 ML SYRINGE SUBCUT SCH (20:29)
[2017-02-16 00:07] VITALS: BP 104/65; PULSE 79; RESP 16; TEMP 98; O2SAT 96
[2017-02-16] MEDS: METOCLOPRAMIDE HCL 10 MG TABLET GT SCH ×5 (01:03→20:42)
[2017-02-16 04:19] VITALS: BP 107/64; PULSE 85; RESP 18; TEMP 97.9; O2SAT 98
[2017-02-16 06:29] LABS: ALBUMIN 3.1 g/dL (3.4-4.8); BILIRUBIN,DIRECT 0.2 mg/dL (0.0-0.3); TOTAL BILIRUBIN 0.4 mg/dL (0.0-1.0); TOTAL PROTEIN, SERUM 7.4 g/dL (6.4-8.3)
[2017-02-16 06:47] LABS: PROTHROMBIN TIME 10.4 SECS (9.5-12.5)
[2017-02-16] MEDS: LevALBUTEROL HCL 1.25 MG/0.5 ML *CONC.* VIAL.NEB (XOPENEX CONC.) INH SCH ×3 (07:32→23:54)
[2017-02-16 08:00] VITALS: BP 99/65; PULSE 70; RESP 18; TEMP 97.5; O2SAT 99
[2017-02-16] MEDS: OXYBUTYNIN CHLORIDE 5 MG TABLET GT SCH ×2 (09:01→20:41)
[2017-02-16] MEDS: ACETAMINOPHEN 650 MG/20.3 ML UDC GT SCH ×2 (09:01→20:40)
[2017-02-16] MEDS: POLYETHYLENE GLYCOL 3350, 17 GM/ POWD.PACK GT SCH (09:01)
[2017-02-16] MEDS: PANTOPRAZOLE SODIUM 40 MG/VIAL (PROTONIX) IVP SCH ×2 (09:02→20:40)
[2017-02-16] MEDS: levETIRAcetam 500 MG TABLET GT SCH ×2 (09:02→20:41)
[2017-02-16] MEDS: LACOSAMIDE 100 MG TABLET GT SCH ×2 (09:02→20:41)
[2017-02-16] MEDS: MENTHOL/ZINC OXIDE 113 GM OINT. TP SCH ×4 (09:03→20:42)
[2017-02-16] MEDS: POTASSIUM CHLORIDE 20 MEQ in D5/0.45 NS 1,000 ML IV SCH (11:20)
[2017-02-16 12:24] VITALS: BP 99/67; PULSE 71; RESP 15; TEMP 96.4; O2SAT 95
[2017-02-16] MEDS ORDERED: MIDAZOLAM HCL 5 MG/5 ML VIAL ONE ×2 (14:34→14:35)
[2017-02-16] MEDS ORDERED: fentaNYL CITRATE/PF 100 MCG/2 ML AMP ONE (14:35)
[2017-02-16] MEDS ORDERED: CEFAZOLIN 1 GM IVPB PREMIX 50 ML IV ONE ×2 (16:24→17:30)
[2017-02-16 16:30] VITALS: BP 111/70; PULSE 79; RESP 16; TEMP 97.8; O2SAT 98
[2017-02-16] MEDS ORDERED: GASTROGRAFIN 120 ML ONE (18:15)
[2017-02-16] MEDS: ZOLPIDEM TARTRATE 5 MG TABLET GT SCH (20:41)
[2017-02-16] MEDS: ENOXAPARIN SODIUM 40 MG/0.4 ML SYRINGE SUBCUT SCH (20:41)
[2017-02-16 20:42] VITALS: BP 101/52; PULSE 79; RESP 18; TEMP 96.3; O2SAT 93
[2017-02-17] VITALS (7 sets, daily range): BP systolic 100–120; BP diastolic 60–73; PULSE 71–88; RESP 15–18; TEMP 96.8–97.7; O2SAT 90–97
[2017-02-17] MEDS: METOCLOPRAMIDE HCL 10 MG TABLET GT SCH ×4 (01:13→18:45)
[2017-02-17] MEDS: POTASSIUM CHLORIDE 20 MEQ in D5/0.45 NS 1,000 ML IV SCH ×2 (02:42→16:21)
[2017-02-17 06:45] LABS: CALCIUM 8.9 mg/dL (8.4-11.0); CREATININE 0.39 mg/dL (0.55-1.30); POTASSIUM 3.9 mmol/L (3.5-5.1)
[2017-02-17 07:27] LABS: BASOPHILS # (AUTO) 0.1 K/uL (0.0-0.2); EOSINOPHILS # (AUTO) 0.2 K/uL (0.0-0.4); EOSINOPHILS % (AUTO) 2.8 % (0.0-4.0); HEMATOCRIT 41.2 % (36-48); HEMOGLOBIN 13.5 g/dL (12.0-16.0); LYMPHOCYTES # (AUTO) 2.3 K/uL (1.0-5.5); LYMPHOCYTES % (AUTO) 36.1 % (20.5-51.5); MEAN CORPUSCULAR HEMOGLOBIN 29 pg (27-31); MEAN CORPUSCULAR HGB CONC 33 % (32-36); MEAN CORPUSCULAR VOLUME 89 fL (79.0-98.0); MONOCYTES # (AUTO) 0.5 K/uL (0.0-1.0); MONOCYTES % (AUTO) 7.2 % (1.7-9.3); NEUTROPHILS # (AUTO) 3.3 K/uL (1.8-7.7); NEUTROPHILS % (AUTO) 52.9 % (40.0-70.0); PLATELET COUNT (AUTO) 264 K/uL (130-430); RED BLOOD CELL COUNT(AUTO) 4.62 MIL/uL (4.2-6.2); RED CELL DISTRIBUTION WIDTH 15.8 % (9.0-15.0); WHITE BLOOD COUNT (AUTO) 6.4 K/uL (4.8-10.8)
[2017-02-17] MEDS: LevALBUTEROL HCL 1.25 MG/0.5 ML *CONC.* VIAL.NEB (XOPENEX CONC.) INH SCH ×3 (07:44→23:08)
[2017-02-17] MEDS: levETIRAcetam 500 MG TABLET GT SCH ×2 (09:35→20:26)
[2017-02-17] MEDS: LACOSAMIDE 100 MG TABLET GT SCH ×2 (09:35→20:25)
[2017-02-17] MEDS: OXYBUTYNIN CHLORIDE 5 MG TABLET GT SCH ×2 (09:35→20:26)
[2017-02-17] MEDS: POLYETHYLENE GLYCOL 3350, 17 GM/ POWD.PACK GT SCH (09:39)
[2017-02-17] MEDS: ACETAMINOPHEN 650 MG/20.3 ML UDC GT SCH ×2 (09:39→20:25)
[2017-02-17] MEDS: PANTOPRAZOLE SODIUM 40 MG/VIAL (PROTONIX) IVP SCH ×2 (09:40→20:25)
[2017-02-17] MEDS: MENTHOL/ZINC OXIDE 113 GM OINT. TP SCH ×4 (09:41→20:26)
[2017-02-17] MEDS ORDERED: MAGNESIUM CITRATE 300 ML ORAL SOLUTION GT ONE (10:15)
[2017-02-17] MEDS ORDERED: MINERAL OIL 133 ML ENEMA RC ONE (10:15)
[2017-02-17] MEDS: ENOXAPARIN SODIUM 40 MG/0.4 ML SYRINGE SUBCUT SCH (20:25)
[2017-02-17] MEDS: ZOLPIDEM TARTRATE 5 MG TABLET GT SCH (20:26)
[2017-02-18 00:09] VITALS: BP 94/50; PULSE 81; RESP 18; TEMP 97.2; O2SAT 93
[2017-02-18] MEDS: METOCLOPRAMIDE HCL 10 MG TABLET GT SCH ×3 (00:38→12:00)
[2017-02-18 04:07] VITALS: BP 97/44; PULSE 74; RESP 18; TEMP 96.8; O2SAT 98
[2017-02-18] MEDS: POTASSIUM CHLORIDE 20 MEQ in D5/0.45 NS 1,000 ML IV SCH (05:54)
[2017-02-18 06:46] LABS: CALCIUM 8.4 mg/dL (8.4-11.0); CREATININE 0.37 mg/dL (0.55-1.30); POTASSIUM 3.8 mmol/L (3.5-5.1)
[2017-02-18 07:04] LABS: BASOPHILS % (AUTO) 0.4 % (0.0-2.0); EOSINOPHILS # (AUTO) 0.2 K/uL (0.0-0.4); EOSINOPHILS % (AUTO) 2.8 % (0.0-4.0); HEMOGLOBIN 13.1 g/dL (12.0-16.0); LYMPHOCYTES # (AUTO) 2.1 K/uL (1.0-5.5); LYMPHOCYTES % (AUTO) 32.2 % (20.5-51.5); MEAN CORPUSCULAR HEMOGLOBIN 30 pg (27-31); MEAN CORPUSCULAR HGB CONC 34 % (32-36); MEAN CORPUSCULAR VOLUME 88 fL (79.0-98.0); MONOCYTES # (AUTO) 0.6 K/uL (0.0-1.0); MONOCYTES % (AUTO) 9.1 % (1.7-9.3); NEUTROPHILS # (AUTO) 3.7 K/uL (1.8-7.7); NEUTROPHILS % (AUTO) 55.5 % (40.0-70.0); PLATELET COUNT (AUTO) 272 K/uL (130-430); RED BLOOD CELL COUNT(AUTO) 4.41 MIL/uL (4.2-6.2); RED CELL DISTRIBUTION WIDTH 15.5 % (9.0-15.0); WHITE BLOOD COUNT (AUTO) 6.6 K/uL (4.8-10.8)
[2017-02-18] MEDS: LevALBUTEROL HCL 1.25 MG/0.5 ML *CONC.* VIAL.NEB (XOPENEX CONC.) INH SCH (07:06)
[2017-02-18 08:00] VITALS: BP 122/80; PULSE 90; RESP 16; TEMP 97.4; O2SAT 98
[2017-02-18] MEDS: ACETAMINOPHEN 650 MG/20.3 ML UDC GT SCH (09:16)
[2017-02-18] MEDS: POLYETHYLENE GLYCOL 3350, 17 GM/ POWD.PACK GT SCH (09:16)
[2017-02-18] MEDS: PANTOPRAZOLE SODIUM 40 MG/VIAL (PROTONIX) IVP SCH (09:16)
[2017-02-18] MEDS: OXYBUTYNIN CHLORIDE 5 MG TABLET GT SCH (09:17)
[2017-02-18] MEDS: levETIRAcetam 500 MG TABLET GT SCH (09:17)
[2017-02-18] MEDS: LACOSAMIDE 100 MG TABLET GT SCH (09:17)
[2017-02-18] MEDS: MENTHOL/ZINC OXIDE 113 GM OINT. TP SCH (09:18)
[2017-02-18] MEDS ORDERED: HEPARIN IV FLUSH 300 UNITS/3ML SYR INJ ONE (10:45)
[2017-02-18 10:50] VITALS: BP 120/75; PULSE 90; RESP 16; TEMP 98.1; O2SAT 94
== END 2017-02-18 13:00 | disposition home health service (06) | DRG 394 ==
LOC: SED 15:55 → SMU 18:23
PROVIDERS: ADMIT Family Medicine; ATTEND Family Medicine
PROC: 0D20XUZ Change Feeding Device in Upper Intestinal Tract, External Approach (ICD-10-PCS; 2017-02-10)
PROC: 0DHA3UZ Insertion of Feeding Device into Jejunum, Percutaneous Approach (ICD-10-PCS; principal; 2017-02-16 13:00)
DX: K94.23 Gastrostomy malfunction (principal); E44.1 Mild protein-calorie malnutrition; K31.6 Fistula of stomach and duodenum; G40.909 Epilepsy, unspecified, not intractable, without status epilepticus; K56.41 Fecal impaction; R13.10 Dysphagia, unspecified; Y83.3 Surgical operation with formation of external stoma as the cause of abnormal reaction of the patient, or of later complication, without mention of misadventure at the time of the procedure; Z87.820 Personal history of traumatic brain injury; Z68.24 Body mass index [BMI] 24.0-24.9, adult; Z90.49 Acquired absence of other specified parts of digestive tract
CPT/HCPCS: 36415; 43246; 74240-TC; 80048; 80053; 80074; 80076; 81000-TC; 83690-TC; 83735-TC; 84100-TC; 84703; 85025; 85610-TC; 85730-TC; 87081; 87086; 94640; 94760; 99285; C9113; J0690; J1650; J2250; J3010; J3480; J7030; J8597; L8699; Q9963

== ENCOUNTER 2017-03-14 08:56 | Inpatient (IN) | payer OTHER ==
[~2017-03-14] VITALS: Ht 160 cm; Wt 59.9 kg
[~2017-03-14 08:56] MED LIST changes: -ASCO-339 GT; -ASCO500T20 GT; -BACL10TA GT; -CALC-226 PO; -CALC1TAB51 GT; -CEPH500C2 GT; -CIPR-211 GT; -DITXL5 GT; -LACT10SO66 GT; -LACT10SO66 PO; -LANS15CA5 GT; -LANS30CA10 PO; -LEVE1000 GT; -LEVE500T13 GT; -LEVE500T13 PO; -NITR25OR3 PO; -NITR50CA GT; -ONDA4TAB22 PO; -OXYB10TA11 PO; -OXYB5TAB11 GT; -TEMA15CA51 GT; -TEMA30CA5 GT; -VITD2000 GT; -[UNRECOGNIZED DRUG - CODE] GT
--- NOTE | 2017-03-14 08:58 | NUR ---
Pt report received from SURI Olivo. Excoriation noted to G-tube site, distended abdomen. No active bleeding noted. Mother at bedside, no needs verbalized at this time.
--- NOTE | 2017-03-14 08:58 | NUR ---
Arrived via BLS ambulance for GT site irritation with scant bleeding from red and blistered site surrounding GT. The facility stated that the GT was pulled 3 days and then reinserted. Patient to ER bed 6 to gown for evaluation. Side rails up. Report given to Jeffery MCCORD.
[2017-03-14 09:00] VITALS: BP_SYST 114
[2017-03-14] MEDS ORDERED: NACL 0.9% 1,000 ML IV SCH (09:06)
[2017-03-14] MEDS ORDERED: GASTROGRAFIN 120 ML ONE (09:28)
[2017-03-14 09:59] LABS: EOSINOPHILS # (AUTO) 0.1 K/uL (0.0-0.4); MONOCYTES # (AUTO) 0.6 K/uL (0.0-1.0)
[2017-03-14 10:04] LABS: BASOPHILS # (AUTO) 0.1 K/uL (0.0-0.2); BASOPHILS % (AUTO) 1.1 % (0.0-2.0); EOSINOPHILS % (AUTO) 1.4 % (0.0-4.0); HEMATOCRIT 42.8 % (36-48); HEMOGLOBIN 14.1 g/dL (12.0-16.0); LYMPHOCYTES # (AUTO) 2.3 K/uL (1.0-5.5); LYMPHOCYTES % (AUTO) 24.1 % (20.5-51.5); MEAN CORPUSCULAR HEMOGLOBIN 29 pg (27-31); MEAN CORPUSCULAR HGB CONC 33 % (32-36); MEAN CORPUSCULAR VOLUME 89 fL (79.0-98.0); MONOCYTES % (AUTO) 5.9 % (1.7-9.3); NEUTROPHILS # (AUTO) 6.5 K/uL (1.8-7.7); NEUTROPHILS % (AUTO) 67.5 % (40.0-70.0); PLATELET COUNT (AUTO) 272 K/uL (130-430); RED BLOOD CELL COUNT(AUTO) 4.82 MIL/uL (4.2-6.2); RED CELL DISTRIBUTION WIDTH 15.6 % (9.0-15.0); WHITE BLOOD COUNT (AUTO) 9.6 K/uL (4.8-10.8)
[2017-03-14 10:19] LABS: CREATININE 0.33 mg/dL (0.55-1.30)
[2017-03-14 10:22] LABS: PROTHROMBIN TIME 10.4 SECS (9.5-12.5)
[2017-03-14 10:23] LABS: ALBUMIN 3.5 g/dL (3.4-4.8); TOTAL BILIRUBIN 0.4 mg/dL (0.0-1.0); TOTAL PROTEIN, SERUM 8.1 g/dL (6.4-8.3)
[2017-03-14] MEDS ORDERED: PIPERACILLIN/TAZO 3.375 GM in NS 50 ML IV ONE (10:30)
--- NOTE | 2017-03-14 10:40 | NUR ---
Admit orders obtained from Dr. Olson for [facility] IP, unable to verify home medication, patient's mother not at bedside. Dr. Olson requested that the mother be asked if patient is on keppra. Primary nurse notified
[2017-03-14] MEDS ORDERED: PIPERACILLIN/TAZOBACTAM 3.375 GM/VIAL (ZOSYN) IV ONE (11:40)
--- NOTE | 2017-03-14 11:50 | NUR ---
Patient will be admitted to care of Dr. Olson. Admitted to Med/Surg unit. Will go to room 109A. Belongings list completed. Summary report printed. Bedside report given to SURI Weathers.
--- NOTE | 2017-03-14 11:53 | NUR ---
ADMISSION NOTE Received patient from ER via andrzej, received report from Derek MCCORD. Patient admitted with diagnosis of Abdominal wall Cellulitis, J-tube dislodgement. Patient opens, non verbal. Make environment comfortable and safe for her.
[2017-03-14 12:18] VITALS: BP_SYST 111
--- NOTE | 2017-03-14 12:50 | NUR ---
Hygiene: Give the patient a partial bath , change linens, adjusts to comfortable position, make the environment safe.
[2017-03-14] MEDS: KCL 20 mEq in D5/0.45NS 1000mL 1,000 ML IV SCH (13:36)
--- NOTE | 2017-03-14 13:41 | NUR ---
IVF: Start D5 1/2 NS + 20 mEq of KCL/Liter IVF @ 100 ml/hr via right upper chest Port-A-cath<accessed from ER>
--- NOTE | 2017-03-14 14:20 | NUR ---
physical assessment completed. No signs of acute distress noted at this time.
--- NOTE | 2017-03-14 16:00 | NUR ---
Dressing changed at the Gtube site. Dark brown drainage noted. New clean dressing placed.
[2017-03-14 16:45] VITALS: BP_SYST 102
[2017-03-14] MEDS ORDERED: ONDANSETRON HCL 4 MG/2 ML VIAL IVP PRN (17:30)
--- NOTE | 2017-03-14 18:20 | NUR ---
Patient is turned and repositioned for comfort. No signs of distress noted. All needs met, will delegate to next shift.
--- NOTE | 2017-03-14 19:30 | NUR ---
OPENING NOTES RECEIVED REPORT AT BEDSIDE FROM DAYSHIFT NURSE. PATIENT IS AWAKE WITH NO S/S OF ACUTE DISTRESS NOTED. IV FLUIDS ARE RUNNING, PERMACATH ON RIGHT SIDE SHOWS NO SIGNS OF INFILTRATION. SUPRAPUBIC CATHETER CLEAN AND DRY, DRAINING YELLOW CLEAR URINE. J-TUBE SITE HAS DRY DRESSING WITH REDNESS, CELLULITIS. SEIZURE, FALL PRECAUTIONS IN PLACE, BED ALARM ON, CALL LIGHT WITHIN REACH.
[2017-03-14] MEDS ORDERED: metroNIDAZOLE 500 mg/NS 200 ML IV ONE (19:35)
[2017-03-14] MEDS: PIPERACILLIN/TAZOBACTAM 3.375 GM/VIAL (ZOSYN) IV ONE (19:36)
[2017-03-14] MEDS: PIPERACILLIN/TAZO 3.375/DEX-IS 50 ML IV SCH (20:08)
[2017-03-14 20:30] VITALS: BP_SYST 104
[2017-03-14] MEDS: PANTOPRAZOLE SODIUM 40 MG/VIAL (PROTONIX) IVP SCH (20:38)
--- NOTE | 2017-03-14 21:00 | NUR ---
RN ROUNDS. PATIENT RESTING IN BED IN SEMI-FREEDMAN'S POSITION. RESPIRATIONS EVEN AND UNLABORED, RISE AND FALL OF CHEST NOTED. J-TUBE DRESSING WAS CHECKED, DRY. NO ACUTE S/S OF DISTRESS NOTED. FALL PRECAUTIONS IN [place], CALL LIGHT WITHN REACH. WILL CONTINUE TO MOINIOT.
[2017-03-14] MEDS: levETIRAcetam 500 MG in NS 100 ML IV SCH (21:14)
[2017-03-14] MEDS: metroNIDAZOLE 500 mg/NS 100 ML IV SCH (22:16)
--- NOTE | 2017-03-14 22:29 | NUR ---
CONSULTATION PAGED REASON FOR CONSULTATION:J-TUBE DISLODGEMENT WAS CONSULT CALLED?Y PERSON WHO WAS NOTIFIED:ANTONIO CONSULTING PHYSICIAN:KASIA ROSENTHAL SPECIALTY:GI DIE CUTTER APPRENTICE PHONE NUMBER:[phone]
[2017-03-15] VITALS (13 sets, daily range): BP systolic 93–109
--- NOTE | 2017-03-15 | NUR ---
RN ROUNDS CHANGED DRESSING ON STOMACH. CLEAN, DRY, INTACT. PATIENT STABLE, NO CHANGE IN CONDITION NOTED.
[2017-03-15] MEDS: KCL 20 mEq in D5/0.45NS 1000mL 1,000 ML IV SCH (01:33)
[2017-03-15] MEDS: PIPERACILLIN/TAZO 3.375/DEX-IS 50 ML IV SCH ×4 (01:34→18:10)
[2017-03-15] MEDS: PIPERACILLIN/TAZOBACTAM 3.375 GM/VIAL (ZOSYN) IV ONE (01:34)
--- NOTE | 2017-03-15 02:00 | NUR ---
RN ROUNDS NO CHANGE IN CONDITION
--- NOTE | 2017-03-15 04:00 | NUR ---
RN ROUNDS REPOSITIONED PT. CHANGED DRAINAGE DRESSING ON J-TUBE, LEAKAGE WAS A THICK BROWN, BLACK DISCHARGE OR LEAKAGE. PT STABLE NO CHANGE IN CONDITION. WILL CONTINUE TO MONITOR. CALL LIGHT WITHIN REACH, FALL AND SEIZURE PRECAUTIONS IN PLACE.
[2017-03-15] MEDS: metroNIDAZOLE 500 mg/NS 100 ML IV SCH ×3 (05:02→22:41)
[2017-03-15] MEDS ORDERED: PIPERACILLIN/TAZOBACTAM 3.375 GM/VIAL (ZOSYN) IV ONE (05:40)
--- NOTE | 2017-03-15 06:00 | NUR ---
CLOSING NOTES WILL ENDORSE CARE TO DAYSHIFT NURSE. PATIENT IS SLEEPING WITH VISIBLE RISE AND FALL OF CHEST. NO S/S OF ACUTE DISTRESS NOTED. IV ANTIBIOTICS ARE RUNNING, PERMACATH ON RIGHT SIDE SHOWS NO SIGNS OF INFILTRATION. SUPRAPUBIC CATHETER CLEAN AND DRY, DRAINING WENDY CLEAR URINE. J-TUBE SITE HAS DRY DRESSING WITH REDNESS, CELLULITIS. SEIZURE, FALL PRECAUTIONS IN PLACE, BED ALARM ON, CALL LIGHT WITHIN REACH
--- NOTE | 2017-03-15 08:05 | NUR ---
Opening Note Report received form Anisha MCCORD. Patient is awake, however, is nonverbal and responds to light stimuli. Right upper chest port-a-cath is running D51/2NS+20KCL@100ml/hr. Shaw catheter is to gravity draining dark yellow urine. J-tube is currently clamped dressing is dry and intact at the moment. Seizure precautions are in place. Will continue to monitor.
[2017-03-15 08:16] LABS: BASOPHILS # (AUTO) 0.1 K/uL (0.0-0.2); BASOPHILS % (AUTO) 0.8 % (0.0-2.0); EOSINOPHILS # (AUTO) 0.1 K/uL (0.0-0.4); EOSINOPHILS % (AUTO) 1.8 % (0.0-4.0); HEMATOCRIT 34.9 % (36-48); HEMOGLOBIN 11.9 g/dL (12.0-16.0); LYMPHOCYTES # (AUTO) 1.8 K/uL (1.0-5.5); LYMPHOCYTES % (AUTO) 25.6 % (20.5-51.5); MEAN CORPUSCULAR HEMOGLOBIN 30 pg (27-31); MEAN CORPUSCULAR HGB CONC 34 % (32-36); MEAN CORPUSCULAR VOLUME 89 fL (79.0-98.0); MONOCYTES # (AUTO) 0.5 K/uL (0.0-1.0); MONOCYTES % (AUTO) 7.8 % (1.7-9.3); NEUTROPHILS # (AUTO) 4.4 K/uL (1.8-7.7); PLATELET COUNT (AUTO) 223 K/uL (130-430); RED BLOOD CELL COUNT(AUTO) 3.93 MIL/uL (4.2-6.2); RED CELL DISTRIBUTION WIDTH 16.3 % (9.0-15.0); WHITE BLOOD COUNT (AUTO) 6.9 K/uL (4.8-10.8)
[2017-03-15 08:41] LABS: CALCIUM 8.4 mg/dL (8.4-11.0); CREATININE 0.34 mg/dL (0.55-1.30); PHOSPHORUS 2.9 mg/dL (2.7-4.5); POTASSIUM 3.4 mmol/L (3.5-5.1)
--- NOTE | 2017-03-15 09:03 | NUR ---
Nutrition Update Aiden Scale 13 noted. Pt admitted for abd wall cellulitis, jejunostomy tube dislodged. Diet: NPO BMI: 23.4 kg/m2 RD to follow per nutrition care standards.
[2017-03-15] MEDS: levETIRAcetam 500 MG in NS 100 ML IV SCH ×2 (09:55→21:32)
[2017-03-15] MEDS: PANTOPRAZOLE SODIUM 40 MG/VIAL (PROTONIX) IVP SCH ×2 (09:56→21:33)
--- NOTE | 2017-03-15 10:03 | NUR ---
Rounds Patient is resting in bed. Seizure precautions are in place.
--- NOTE | 2017-03-15 12:00 | NUR ---
Rounds Patient is resting in bed. No signs of distress noted. Bed is in low position and seizure pads are in place.
--- NOTE | 2017-03-15 13:00 | NUR ---
DC PLANNING: Called Estella (mom) # [phone], busy tone , no answer.
--- NOTE | 2017-03-15 14:33 | NUR ---
Called Dr. Olson called to be informed of change in patient's VS. BP 80/49, HR 80, O2 sat 85% on RA. Will continue to monitor patient and will wait for a call back.
--- NOTE | 2017-03-15 14:50 | NUR ---
Spoke with MD Spoke with Dr. Olson order for a bolus of NS received.
[2017-03-15] MEDS ORDERED: NS 250 ML IV ONE (15:00)
--- NOTE | 2017-03-15 15:12 | NUR ---
Spoke with MD Order obtained from Dr. Olson to transfer patient to ICU.
--- NOTE | 2017-03-15 15:24 | NUR ---
Report given Report given to Adri in ICU. Patient will be going to ICU 5.
--- NOTE | 2017-03-15 15:30 | NUR ---
Received pt alert with eyes open. Pt is non verbal. Unable to make needs known. SR on monitor. SBP 94. HOB up. Lungs clear with 02 2L NC in use. No cough. Abd distended with hypoactive bowel sounds. J/G tube clamped. %00cc fluid bolus finished infusing. Pt has a suprapubic catheter with yellow urine in bag. Pt has a right heel wound, that has a scab on it. Wound covered with a foam dressing. Feet up off bed on pillow. Heel lift boots in place. Will continue to monitor.
[2017-03-15] MEDS: KCL 20 mEq in D5NS 1000 mL 1,000 ML IV SCH ×2 (16:51→22:40)
[2017-03-15] MEDS: NOREPINEPHRINE BITARTRATE 4 MG in D5W 246 ML IV PRN (17:00)
--- NOTE | 2017-03-15 17:00 | NUR ---
PT IN BED WITH EYES OPEN. NSR ON MONITOR, SBP 100, O2 SAT 100% ON 2 L NC. RESPIRATIONS SHALLOW BUT UNLABORED. PT TURNED, POSITIONED WITH PILLOWS, LINENS CHANGED. NO SIGNS OF DISTRESS OR PAIN DURING TURNING. PT LEFT WITH HOB ELEVATED, CALL LIGHT IN REACH, SIDE RAILS UP AND PADDED ACCORDING TO SEIZURE PRECAUTIONS, BED IN LOWEST POSITION. WILL CONTINUE TO MONITOR PT.
--- NOTE | 2017-03-15 17:55 | NUR ---
Wound care done to right heel. Wound with a dry scab, cleaned with NS and foam dressing applied.
--- NOTE | 2017-03-15 19:30 | NUR ---
PM SHIFT ASSESSMENT Pt is awake/alert, nonverbal and unable to make needs known. No s/s of acute distress noted. O2 via NC @ 2L, RR even and unlabored. Jtube and Gtube noted and clamped. Some redness around J/Gtube site, no drainage, dressing over site is clean and intact. Abdomen is distended and firm. Suprapubic catheter draining to gravity. Port-a-cath to right upper chest, dressing over site clean/dry/intact with IVF infusing. Wound to right heel with dressing in place, clean/dry/intact and heel boot in place. Safety precautions in place, call light within reach. Will continue to monitor.
[2017-03-15] MEDS ORDERED: GASTROGRAFIN 120 ML ONE (20:33)
--- NOTE | 2017-03-15 22:45 | NUR ---
Pt restless, moaning and grimacing. Will administer PRN pain medications per MD order. Will continue to monitor.
[2017-03-15] MEDS: MORPHINE 2 MG/ML INJ. SYRINGE IVP PRN (23:06)
[2017-03-16] VITALS (24 sets, daily range): BP systolic 80–117
--- NOTE | 2017-03-16 00:15 | NUR ---
Pt resting in bed, VS stable. Will continue to monitor.
[2017-03-16] MEDS: PIPERACILLIN/TAZO 3.375/DEX-IS 50 ML IV SCH ×4 (00:45→17:03)
[2017-03-16] MEDS: KCL 20 mEq in D5NS 1000 mL 1,000 ML IV SCH ×3 (04:20→17:03)
--- NOTE | 2017-03-16 06:00 | NUR ---
CHG bath given, pt tolerated care well.
[2017-03-16] MEDS: metroNIDAZOLE 500 mg/NS 100 ML IV SCH ×3 (06:35→23:03)
--- NOTE | 2017-03-16 07:25 | NUR ---
Pt care endorsed to SURI Wilcox at bedside using nursing SBAR.
[2017-03-16 07:26] LABS: BASOPHILS # (AUTO) 0.1 K/uL (0.0-0.2); BASOPHILS % (AUTO) 0.8 % (0.0-2.0); EOSINOPHILS # (AUTO) 0.2 K/uL (0.0-0.4); EOSINOPHILS % (AUTO) 2.3 % (0.0-4.0); HEMATOCRIT 36.4 % (36-48); HEMOGLOBIN 12.2 g/dL (12.0-16.0); LYMPHOCYTES # (AUTO) 1.9 K/uL (1.0-5.5); LYMPHOCYTES % (AUTO) 27.7 % (20.5-51.5); MEAN CORPUSCULAR HEMOGLOBIN 30 pg (27-31); MEAN CORPUSCULAR HGB CONC 33 % (32-36); MEAN CORPUSCULAR VOLUME 90 fL (79.0-98.0); MONOCYTES # (AUTO) 0.4 K/uL (0.0-1.0); MONOCYTES % (AUTO) 6.1 % (1.7-9.3); NEUTROPHILS # (AUTO) 4.2 K/uL (1.8-7.7); NEUTROPHILS % (AUTO) 63.1 % (40.0-70.0); PLATELET COUNT (AUTO) 241 K/uL (130-430); RED BLOOD CELL COUNT(AUTO) 4.05 MIL/uL (4.2-6.2); RED CELL DISTRIBUTION WIDTH 16.2 % (9.0-15.0); WHITE BLOOD COUNT (AUTO) 6.8 K/uL (4.8-10.8)
[2017-03-16 07:58] LABS: CALCIUM 8.4 mg/dL (8.4-11.0); CREATININE 0.38 mg/dL (0.55-1.30); POTASSIUM 3.7 mmol/L (3.5-5.1)
--- NOTE | 2017-03-16 08:00 | NUR ---
AM ASSESSMENT. PT AWAKE, LOUD MOANING HEARD, SPEECH IMPAIRED, ORAL CARE DONE, CONTRACTURES TO UPPER AND LOWER EXTREMITIES, HEELIFT BOOT REMOVED AND REPLACED TO RIGHT FOOT, DRY SCAB ON HER RIGHT HEEL, TOP OF THE FOOT REDDENED, SKIN IRRITATION TO ABDOMEN SEEN, G-J TUBE INTACT, SUPRAPUBIC CATHETER DRAINING GOOD AMOUNT OF URINE.
[2017-03-16] MEDS: levETIRAcetam 500 MG in NS 100 ML IV SCH ×2 (08:43→21:52)
[2017-03-16] MEDS: PANTOPRAZOLE SODIUM 40 MG/VIAL (PROTONIX) IVP SCH ×2 (08:43→21:02)
--- NOTE | 2017-03-16 09:20 | NUR ---
MRSA. PAGED DR CRONIN AND RETURNED THE CALL. MRSA NARES POSITIVE REPORTED. STATED HE WILL PUT MEDICATION ORDERS WHEN HE COMES IN TODAY.
--- NOTE | 2017-03-16 10:00 | NUR ---
DC PLANNING: Called Estelal (mom) # [phone], unable to leave message DT no voice mail set up.
--- NOTE | 2017-03-16 10:30 | NUR ---
SKIN CARE. WOUND CARE NURSE HERE, EVALUATION TO ABDOMEN, RIGHT HEEL/FOOT DONE. FOAM DRESSING TO RIGHT HEEL AND DORSAL PART OF THE FOOT APPLIED. CALMOSEPTINE CREAM TO ABDOMEN SURROUNDING TUBE FEEDING AND PHYTOPLEX OINTMENT TO SKIN SURROUNDING SUPRAPUBIC AREA.
--- NOTE | 2017-03-16 10:30 | NUR ---
Wound Care Consult: Wound Consult received for a low Aiden score. Late note for 03/16/17 at 1030 secondary to patient care. Patient was awake, non-verbal, does not track with eyes, and received in a [place] bed with an IsoFlex DEEPALI mattress with low air-loss therapy initiated. Aiden score is a 12. Skin is poor; Incontinent of bowel; All extremities contracted. Past medical history: Traumatic brain injury at age 23, bed-bound, Chronic Encephalopathy, Seizure Disorder, recurrent Urinary Tract Infections, G-tube, and Suprapubic Catheter. Recent labs: WBC 6.8, RBC 4.05, hemoglobin 12.2, hematocrit 36.4, BUN 2, creatinine 0.38, glucose 107, chloride 108, PTT 22.3. Intrinsic Factors that delay wound healing: Chronic Encephalopathy. Extrinsic factors that decrease wound healing: decreased mobility. Blood culture 2 in progress. MRSA Screen results positive. Wound Assessment: 1. G-Tube Dolly-Site and Surrounding Tissue Erythema, non-intact skin, and multiple scabs from from GJ Tube leakage/drainage, present on admission. No odor, no drainage. Surrounding tissue erythematous. Measures 6.5 cm x 9.0 cm. GJ-tube Balloon was visible, and GJ tube was pushed back into place. Will inform physician. Recommend: Cleanse area with normal saline. Pat dry. Put Calmoseptine cream onto involved area. Cover with drain pads, and secure with paper tape. Perform site care q shift and as needed for dressing soiling or dislodgement. 2. Right Heel: Chronic pressure ulcer site, prior unknown stage, present on admission. Wound bed has black eschar with soft pink scan, and dry peeling skin. No odor, no drainage. Measures 2.2 cm x 4.0 cm. 3. Left Heel: Blanchable redness, with dark discoloration, present on admission. Scar tissue present, with thin wall of tissue present between bone and skin, sharp, bony feel. No odor, no drainage. 4. Right Dorsal Foot: Appears to be scar tissue, present on admission. No odor, no drainage. Recommend: Cover dorsal foot and bilateral heels with foam dressings. Elevate, offload and float heels at all times with pillows. Place a pillow between the knees. 5. Suprapubic catheter: Site has erythema from catheter leakage, present on admission. Recommend: Cleanse involved areas with mild soap and water. Pat dry. Apply Calmoseptine cream to involved areas 4 times a day, and as needed for soiling. Also recommend: Reposition patient side to side only every two hours with pillow support, and off-load pressure areas with pillows for pressure re-distribution. Perform skin care and monitor skin integrity q shift. Elevate, offload and float heels at all times with one pillow lengthwise for each extremity (Left Foot has severe foot drop, and will require extra pillows to float). Use Calmoseptine cream on reddened and moisture susceptible areas qid and prn for soiling. Maintain patient on a low air-loss mattress. Place Right Heel in a Heelift Boot (make sure heel floats in boot at all times, cut boot if necessary to allow heel to float).
[2017-03-16] MEDS: MORPHINE 2 MG/ML INJ. SYRINGE IVP PRN (14:02)
--- NOTE | 2017-03-16 14:02 | NUR ---
AGITATION. PT SCREAMING, MEDICATED WITH MORPHINE 2 MG IVP FOR COMFORT, TURNED AND REPOSITIONED IN BED.
--- NOTE | 2017-03-16 16:02 | NUR ---
FEEDING TUBE. DR PEDROZA CAME AND EXAMINED PT. PULLED OUT G/JTUBE. REPLACED WITH [place] CATHETER 20FR, BALLOON INFLATED WITH 10 ML SALINE. DRAIN GAUZE WITH SLIT TO COVER THE AREA.
--- NOTE | 2017-03-16 16:22 | NUR ---
CONSENT. ATTEMPTED TO REACH FOR PT'S MOTHER GAMAL COLLINS VIA PHONE, UNABLE TO LEAVE A MESSAGE, BUSY SIGNAL.
--- NOTE | 2017-03-16 17:58 | NUR ---
CONSENT. CALLED PT'S MOTHER AGAIN, GAMAL COLLINS. SHE CONSENTED FOR EGD, PEG TUBE PLACEMENT.
[2017-03-16] MEDS: ALBUMIN HUMAN 25% 50 ML IV SCH ×2 (19:15→23:33)
--- NOTE | 2017-03-16 19:33 | NUR ---
ENDORSEMENT OF CARE BEDSIDE REPORT GIVEN TO SURI CEBALLOS USING SBAR APPROACH.
--- NOTE | 2017-03-16 19:35 | NUR ---
Patient endorsed by am nurse with low blood pressure. According to am nurse Jeri, patient's blood pressure started declining after patient was given Morphine. Albumin was ordered during the am shift. Patient awake with eyes open. No sign of distress noted at this time. Will monitor closely.
--- NOTE | 2017-03-16 20:00 | NUR ---
SCDs placed on bilateral leg as per order.
[2017-03-16] MEDS: VANCOMYCIN HCL 1 GM/NS PREMIX 250 ML IV SCH (20:43)
[2017-03-16] MEDS ORDERED: MUPIROCIN NASAL 2% OINT. 1 GM NS SCH (21:00)
[2017-03-16] MEDS: MUPIROCIN 2% TOPICAL OINTMENT 22 GM TP SCH (21:02)
[2017-03-17] VITALS (24 sets, daily range): BP systolic 76–120
[2017-03-17] MEDS ORDERED: NOREPINEPHRINE 4 MG/4 ML VIAL IV ONE (00:35)
--- NOTE | 2017-03-17 00:45 | NUR ---
LEVOPHED PRN Levophed initiated at this time. Patient's blood pressure at 84/49. Will continue to monitor.
[2017-03-17] MEDS: NOREPINEPHRINE BITARTRATE 4 MG in D5W 246 ML IV PRN ×2 (00:46→17:40)
[2017-03-17] MEDS: KCL 20 mEq in D5NS 1000 mL 1,000 ML IV SCH ×4 (00:52→20:13)
--- NOTE | 2017-03-17 01:00 | NUR ---
Patient tolerating levophed well. Blood pressure this time at 108/68. No sign of distress noted at this time. Vital signs stable. Will continue to monitor.
[2017-03-17] MEDS: PIPERACILLIN/TAZO 3.375/DEX-IS 50 ML IV SCH ×5 (01:19→23:50)
--- NOTE | 2017-03-17 03:00 | NUR ---
Patient lying in bed with eyes closed. Rise and Fall of chest noted. Vital signs stable. BP 112/65 with levophed still running. No sign of distress noted.
[2017-03-17] MEDS: ALBUMIN HUMAN 25% 50 ML IV SCH (03:54)
--- NOTE | 2017-03-17 06:00 | NUR ---
Patient tolerating levophed well. Vital signs stable at this time. No sign of distress noted. All needs met during this shift. Will endorse to am nurse.
[2017-03-17 06:25] LABS: BASOPHILS % (AUTO) 0.3 % (0.0-2.0); EOSINOPHILS # (AUTO) 0.1 K/uL (0.0-0.4); EOSINOPHILS % (AUTO) 0.9 % (0.0-4.0); HEMATOCRIT 38.7 % (36-48); LYMPHOCYTES # (AUTO) 1.6 K/uL (1.0-5.5); LYMPHOCYTES % (AUTO) 17.1 % (20.5-51.5); MEAN CORPUSCULAR HEMOGLOBIN 30 pg (27-31); MEAN CORPUSCULAR HGB CONC 34 % (32-36); MEAN CORPUSCULAR VOLUME 90 fL (79.0-98.0); MONOCYTES # (AUTO) 0.7 K/uL (0.0-1.0); NEUTROPHILS # (AUTO) 6.8 K/uL (1.8-7.7); NEUTROPHILS % (AUTO) 73.7 % (40.0-70.0); PLATELET COUNT (AUTO) 280 K/uL (130-430); RED BLOOD CELL COUNT(AUTO) 4.28 MIL/uL (4.2-6.2); RED CELL DISTRIBUTION WIDTH 15.7 % (9.0-15.0); WHITE BLOOD COUNT (AUTO) 9.2 K/uL (4.8-10.8)
[2017-03-17] MEDS: metroNIDAZOLE 500 mg/NS 100 ML IV SCH ×3 (06:30→21:38)
[2017-03-17 06:37] LABS: CALCIUM 8.6 mg/dL (8.4-11.0); CREATININE 0.43 mg/dL (0.55-1.30); POTASSIUM 3.9 mmol/L (3.5-5.1)
--- NOTE | 2017-03-17 07:10 | NUR ---
RECEIVED PATIENT ON BED ASLEEP.BREATHING EVEN AND UNLABORED.NO ACUTE DISTRESS.IVF INFUSING WELL;TOLERATING WELL.SUPRA PUBIC CATHETER INTACT AND PATENT DRAINING YELLOW URINE.WITH STRAIGHT CATH TO JT SITE;SITE RED;MOIST;WITH MINIMAL YELLOWISH DRAINAGE.SAFETY AND FALL PRECAUTIONS IN PLACE.CALL LIGHT WITHIN REACH
--- NOTE | 2017-03-17 08:00 | NUR ---
PATIENT'S MOTHER CAME TO VISIT;UPDATED REGARDING PATIENT'S CONDITION
[2017-03-17] MEDS: VANCOMYCIN HCL 1 GM/NS PREMIX 250 ML IV SCH ×2 (08:33→20:07)
[2017-03-17] MEDS: PANTOPRAZOLE SODIUM 40 MG/VIAL (PROTONIX) IVP SCH ×2 (08:34→20:11)
[2017-03-17] MEDS: MUPIROCIN 2% TOPICAL OINTMENT 22 GM TP SCH ×2 (08:34→20:11)
[2017-03-17] MEDS: levETIRAcetam 500 MG in NS 100 ML IV SCH ×3 (08:36→20:12)
--- NOTE | 2017-03-17 12:28 | NUR ---
DC Planning: Able to contact the pt's brother Anthony Guillen # [phone]. He stated this is the best number to contact for the hospital. Since Phyllis, the pt's sister # [phone] and Estella (mom) # [phone] , their voice mails are not set up and unable to leave messages. Anthony asked to call him for further discharge planning, he requested pt. transfer to [place] or [facility] per dr. Olson 's recommendation. >> The pt is in service with [facility] # [phone] , [facility] for feeding apparatus needs, and [facility] for ADL's needs. Addendum: 03/17/17 at 1252 by Dayna Wade RN >>New contact info faxed to admitting to update the pt's face sheet.
[2017-03-17] MEDS ORDERED: MIDAZOLAM HCL 5 MG/5 ML VIAL ONE (13:02)
[2017-03-17] MEDS ORDERED: MEPERIDINE HCL/PF 50 MG/ML AMP ONE (13:03)
[2017-03-17] MEDS ORDERED: SIMETHICONE 40 MG/0.6 ML ML ONE (13:03)
--- NOTE | 2017-03-17 13:55 | NUR ---
J-TUBE PLACEMENT ONGOING;TOLERATING PROCEDURE WELL
--- NOTE | 2017-03-17 14:09 | NUR ---
J-TUBE PLACEMENT NOT DONE DUE TO GUIDE WIRE UNAVAILABLE.PER DR. PEDROZA THEY WILL TRY AGAIN TOMORROW ONCE THE WIRE IS AVAILABLE.WILL INFORM PRIMARY MD AND FAMILY
--- NOTE | 2017-03-17 15:52 | NUR ---
PATIENT'S MOTHER CAME;INFORMED THAT THE J-TUBE PLACEMENT WAS NOT COMPLETED DUE TO UNAVAILABILITY OF THE GUIDED WIRE AND WILL TRY AGAIN TOMORROW SAID OKAY
--- NOTE | 2017-03-17 18:10 | NUR ---
DR. CRONIN CAME AND EXAMINED THE PATIENT;NO NEW ORDER
--- NOTE | 2017-03-17 18:51 | NUR ---
PATIENT ON BED ASLEEP.BREATHING EVEN AND UNLABORED.NO ACUTE DISTRESS.IVF INFUSING WELL;TOLERATING WELL.SUPRA PUBIC CATHETER INTACT AND PATENT DRAINING YELLOW URINE.WILL ENDORSE TO NEXT SHIFT ACCORDINGLY
--- NOTE | 2017-03-17 19:45 | NUR ---
PM ASSESSMENT PT APHASIC, OPENS EYES TO VERBAL STIMULI. PT ON RA, NO SOB OR DISTRESS, BILAT LOWER LUNGS DIMINISHED. SR ON THE MONITOR. JTUBE IN PLACE, CLAMPED, DRESSING IN PLACE, CLEAN DRY AND INTACT. SUPRAPUBIC CATHETER DRAINING TO GRAVITY W/ YELLOW CLOUDY URINE. RT TOP AND HEEL COVERED W/ DRESSING. PT CONTRACTED BUE AND BLE. IV SITE ON RT CHEST BRIGIDA-CATH, INTACT AND PATENT, INFUSING D5NS@150ML/HR. CALL LIGHT W/IN REACH. SAFETY AND SZ PRECAUTIONS IN PLACE, WILL CONTINUE TO MONITOR.
[2017-03-17] MEDS: MORPHINE 2 MG/ML INJ. SYRINGE IVP PRN (23:49)
[2017-03-18] VITALS (24 sets, daily range): BP systolic 86–120
[2017-03-18] MEDS: PIPERACILLIN/TAZO 3.375/DEX-IS 50 ML IV SCH ×4 (05:26→23:57)
[2017-03-18] MEDS: KCL 20 mEq in D5NS 1000 mL 1,000 ML IV SCH ×3 (05:26→14:14)
[2017-03-18] MEDS: metroNIDAZOLE 500 mg/NS 100 ML IV SCH ×3 (05:27→22:16)
--- NOTE | 2017-03-18 07:27 | NUR ---
CLOSING ALL NEEDS MET. ENDORSED CARE AT BEDSIDE TO DAY NURSE SURI TAMAYO.
--- NOTE | 2017-03-18 07:30 | NUR ---
PATIENT AWAKE, OPENS EYES, BUT THEY DO NOT TRACK. PORTACATH NOTED ON THE RIGHT CHEST, INFUSED WITH D5 NS WITH 20 MEQ KCL AT 150ML/HR, AND LEVOPHED 2 MCG/MIN. SITE INTACT AND PATENT. LUNG SOUNDS CLEAR AT THE UPPER LOBES, DIMINISHES AT THE BASES. J TUBE DRESSING CDI AT THIS TIME. BOWEL SOUNDS PRESENT. SUPRAPUBIC CATHETER IS DRAINING CLEAR YELLOW URINE.WOUNDS NOTED ON THE RIGHT FOOT, DORSAL AND VENTRAL SIDE, COVERED WITH DRESSING. CALL LIGHT IN PLACE, BED LOCKED AT THE LOWEST POSITION, WILL CONTINUE TO MONITOR.
[2017-03-18] MEDS: VANCOMYCIN HCL 1 GM/NS PREMIX 250 ML IV SCH ×2 (07:49→20:30)
[2017-03-18] MEDS: MUPIROCIN 2% TOPICAL OINTMENT 22 GM TP SCH ×2 (07:54→20:39)
[2017-03-18] MEDS: MENTHOL/ZINC OXIDE 113 GM OINT. TP SCH ×4 (09:00→21:19)
--- NOTE | 2017-03-18 09:30 | NUR ---
PATIENT TURNED AND REPOSITIONED FOR COMFORT. NO SIGNS OF DISTRESS NOTED.
[2017-03-18] MEDS: PANTOPRAZOLE SODIUM 40 MG/VIAL (PROTONIX) IVP SCH ×2 (09:52→20:30)
[2017-03-18] MEDS: levETIRAcetam 500 MG in NS 100 ML IV SCH ×2 (09:52→21:12)
--- NOTE | 2017-03-18 10:20 | NUR ---
LEVOPHED AT 1MCG/MIN.
--- NOTE | 2017-03-18 11:15 | NUR ---
PATIENT IS AT REST, V/S IS STABLE. BP AT 103/66.
--- NOTE | 2017-03-18 12:00 | NUR ---
LEVOPHED DRIP: BP READING=86/45, IV LEVOPHED DRIP TITRATED TO 2 MCG/MIN FOR SUPPORT, PT RESTING, NO S/S OF DISTRESS, WILL CONT' TO MONITOR AND ASSESS.
--- NOTE | 2017-03-18 13:00 | NUR ---
LEVOPHED DRIP: BP READING=87/47, IV LEVOPHED DRIP TITRATED TO 4MCG/MIN FOR SUPPORT, PT RESTING, NO S/S OF DISTRESS, WILL CONT' TO MONITOR AND ASSESS.
[2017-03-18] MEDS: MENTHOL/ZINC OXIDE 113 GM OINT. TP PRN (14:14)
--- NOTE | 2017-03-18 14:30 | NUR ---
LEVOPHED DRIP: LEVOPHED DRIP INCREASED TO 6MCG/MIN, BP=85/46, IV SITE INTACT, PATENT, NO REDNESS OR SWELLING,WILL CONT' TO MONITOR AND ASSESS.
--- NOTE | 2017-03-18 15:00 | NUR ---
GI: AT BEDSIDE FOR EGD WITH REPLACEMENT OF J-TUBE, NO SEDATION REQUESTED, VSS, REMAINS ON LEVOPHED 6MCG/MIN, WILL CONT' TO MONITOR AND ASSESS.
[2017-03-18] MEDS ORDERED: GASTROGRAFIN 120 ML ONE (16:23)
--- NOTE | 2017-03-18 17:00 | NUR ---
nurses notes: pt resting in position of comfort, no distress noted, no indication of pain, vss, breathing easy, call light placed within reach, will cont' with plan of care.
--- NOTE | 2017-03-18 19:00 | NUR ---
MD VISIT: DR. DONNELLY
[2017-03-18] MEDS: NOREPINEPHRINE BITARTRATE 4 MG in D5W 246 ML IV PRN (19:20)
--- NOTE | 2017-03-18 19:40 | NUR ---
INITIAL NOTES; -Pt is a/o x1. No s/s any pain, sob,or acute distress noted. Pt has 2 L n/c oxy continously. Levophed drip @ 6mcg/min. Portacath of rt chest wall patent, drsg cdi. IV left hand #22,patent, no s/s any infiltration. IVF D5NS + 20 MEQ KCL @ 150ml/hr. MRSA contact isolation for nares. All extremities contracted noted. DRsg cdi of rt lateral heel. Collin ankles edema +2 pitting noted. Elevates collin lower extremities all time. Rt heel gomez in place. SCD collin lower extremities. Air mattress in place. Suprapubic cath w/ gravity drains yellow urine output. Seizure precaution in place. All side rails padded. Fall precaution in place. Bed alarm in place, bed low position and side railsx2. Call light w/in reach. No visitor is at bedside. Turned and repositioned and q 2 hrs prn. Unable to discuss poc, due to aloc, no family is available this time. All safety measures in place. Call light w/in reach. Continue to monitor pt.
--- NOTE | 2017-03-18 20:58 | NUR ---
ENDORSED TO NATHANIEL-RN TO CONTINUITY CARE. -Pt is resting. No s/s any pain,sob,or any acute distress noted. All safety measures in place. Call light /win reach.
--- NOTE | 2017-03-18 21:00 | NUR ---
PT AWAKE, DOES NOT FOLLOW COMMANDS.HAS LEVOPHED DRIP AT 6 MCG/MIN INFUSING VIA THE PORTACATH OVER RT SUBCLAVIAN AREA.PLACED ON ROOM AIR THIS TIME.DOES NOT APPEAR TO BE IN PAIN.
[2017-03-19] VITALS (25 sets, daily range): BP systolic 87–129
--- NOTE | 2017-03-19 00:26 | NUR ---
Called Dr. Delvalle for morning consult. Spoke to Reanna. Nurse is aware.
--- NOTE | 2017-03-19 02:00 | NUR ---
HAD LIQUID STOOLS X3 SINCE 2099.SPECIMEN SENT TO LAB FOR C.DIFF. INSERTED FLEXISEAL TO PROTECT THE SKIN.
[2017-03-19] MEDS: KCL 20 mEq in D5NS 1000 mL 1,000 ML IV SCH ×4 (02:20→18:09)
--- NOTE | 2017-03-19 05:57 | NUR ---
REMAINS ON LEVOPHED DRIP, TITRATED ULYSSES.LEVOPHED DRIP AT 2 MCG/MIN AT THIS TIME.
[2017-03-19] MEDS: metroNIDAZOLE 500 mg/NS 100 ML IV SCH ×2 (06:02→14:02)
[2017-03-19] MEDS: PIPERACILLIN/TAZO 3.375/DEX-IS 50 ML IV SCH ×2 (06:02→12:36)
--- NOTE | 2017-03-19 07:30 | NUR ---
Pt has a right chest port a cath with levophed infusing at 2 mcgs and SBP > 90. SR on monitor. Will continue to monitor BP.
--- NOTE | 2017-03-19 07:30 | NUR ---
nurses notes: Received patient awake, alert, non verbal and does not follow command. Stable. Hook on monitor. S.R. I.V. access on R chest port-a cath patent. G/J tube present. Shaw Cath draining with yellow urine. SCD in placed. Safety measures in placed with padded both rails. Call light within reach.
[2017-03-19] MEDS ORDERED: GASTROGRAFIN 120 ML ONE (08:32)
--- NOTE | 2017-03-19 08:34 | NUR ---
Sandra Dos Santos for consult.
--- NOTE | 2017-03-19 09:00 | NUR ---
Xray for g/j tube placement. Need to retake due to contrast on film per radiolgist.
[2017-03-19] MEDS: levETIRAcetam 500 MG in NS 100 ML IV SCH ×2 (09:04→21:15)
[2017-03-19] MEDS: VANCOMYCIN HCL 1 GM/NS PREMIX 250 ML IV SCH ×2 (09:05→21:20)
[2017-03-19] MEDS: MUPIROCIN 2% TOPICAL OINTMENT 22 GM TP SCH ×2 (09:17→21:21)
[2017-03-19] MEDS: PANTOPRAZOLE SODIUM 40 MG/VIAL (PROTONIX) IVP SCH ×2 (09:17→20:49)
[2017-03-19] MEDS: MENTHOL/ZINC OXIDE 113 GM OINT. TP SCH ×4 (09:19→21:17)
--- NOTE | 2017-03-19 10:00 | NUR ---
patient sleeping. no distress noted.
--- NOTE | 2017-03-19 11:00 | NUR ---
xray UGI w/ gastrograffin done.
--- NOTE | 2017-03-19 11:30 | NUR ---
rounds: patient changed dressing, scab forming. no active bleeding. cleaned and repositioned.
--- NOTE | 2017-03-19 11:43 | NUR ---
Social Service Note: Pt referred by social service agency director for ICU Screening. Pt is known to social service agency director from previous admissions. TECH BRAZER TESTER reviewed pt's chart. Pt is currently in ICU on blood pressure support medications. TECH BRAZER TESTER observed pt resting in bed; pt appears comfortable at this time. Pt is from home with mother who helps care for her. Pt is bedbound and requires maximum assistance with all ADLs. TECH BRAZER TESTER will remain available for support and will follow up as needs arise.
--- NOTE | 2017-03-19 12:01 | NUR ---
Levophed drip turned off.
--- NOTE | 2017-03-19 12:28 | NUR ---
Lab came for blood withdrawal.
--- NOTE | 2017-03-19 12:45 | NUR ---
RN NOTES SPOKE TO DR. TAVERAS RE: J TUBE PLACEMENT CONFIRMATION (SB). PLACEMENT CONFIRMED BY [facility] W/ GASTROGRAFIN.
[2017-03-19 13:01] LABS: BASOPHILS % (AUTO) 0.7 % (0.0-2.0); EOSINOPHILS # (AUTO) 0.2 K/uL (0.0-0.4); EOSINOPHILS % (AUTO) 2.9 % (0.0-4.0); HEMATOCRIT 37.8 % (36-48); HEMOGLOBIN 12.9 g/dL (12.0-16.0); LYMPHOCYTES % (AUTO) 36.7 % (20.5-51.5); MEAN CORPUSCULAR HEMOGLOBIN 31 pg (27-31); MEAN CORPUSCULAR HGB CONC 34 % (32-36); MEAN CORPUSCULAR VOLUME 89 fL (79.0-98.0); MONOCYTES # (AUTO) 0.4 K/uL (0.0-1.0); MONOCYTES % (AUTO) 7.3 % (1.7-9.3); NEUTROPHILS # (AUTO) 2.8 K/uL (1.8-7.7); NEUTROPHILS % (AUTO) 52.4 % (40.0-70.0); PLATELET COUNT (AUTO) 223 K/uL (130-430); RED BLOOD CELL COUNT(AUTO) 4.24 MIL/uL (4.2-6.2); RED CELL DISTRIBUTION WIDTH 15.8 % (9.0-15.0); WHITE BLOOD COUNT (AUTO) 5.4 K/uL (4.8-10.8)
[2017-03-19 13:11] LABS: ALBUMIN 3.4 g/dL (3.4-4.8); CALCIUM 8.5 mg/dL (8.4-11.0); CREATININE 0.39 mg/dL (0.55-1.30); POTASSIUM 3.3 mmol/L (3.5-5.1); TOTAL BILIRUBIN 0.6 mg/dL (0.0-1.0)
--- NOTE | 2017-03-19 13:36 | NUR ---
Gtube feeding: started gtube feeding @20 ml/hr.
--- NOTE | 2017-03-19 15:11 | NUR ---
rounds: pt sleeping. no distress noted.
--- NOTE | 2017-03-19 16:05 | NUR ---
rounds: Observed flexiseal leaking. Fixed the flexiseal, cleaned the patient and repositioned.
--- NOTE | 2017-03-19 17:15 | NUR ---
M.DThiago rounds: Dr. Dos Santos seen the patient.
--- NOTE | 2017-03-19 17:20 | NUR ---
Levophed drip: Decreased BP 87/54. Levophed drip start @2mcg/min.
--- NOTE | 2017-03-19 18:02 | NUR ---
BP increased: BP increased after the Levodrip 2mcg/min started.
--- NOTE | 2017-03-19 18:27 | NUR ---
rounds: pt on bed resting comfortable. no distress noted. BP WNL.
--- NOTE | 2017-03-19 18:30 | NUR ---
MEsther rounds: Dr. Caro seen the patient with new orders.
[2017-03-19] MEDS ORDERED: POTASSIUM CHLORIDE 20 MEQ/PKT PACKET GT ONE (18:45)
--- NOTE | 2017-03-19 19:06 | NUR ---
Closing notes: Patient on bed sleeping. Stable. Needs attended. Safety measures in placed with padded side rails. I.V. access R chest port a cath patent. Gtube feeding tolerated. Flexiseal in placed. Shaw cath in placed. SCD in placed on L foot. Right foot with heal protector. Report will be given to incoming shift commander nurse.
--- NOTE | 2017-03-19 19:30 | NUR ---
PM ASSESSMENT Patient endorsed by morning shift. Patient lying in bed with eyes closed. No sign of distress noted. Rise and Fall of chest noted. Vital signs stable. MRSA contact isolation in place. Heel protector on rt. heel. SCDs in BLL.Suprapubic catheter in place and draining yellow,clear urine. Seizure pads in place.Levophed drip running at 2mcg. Tube feeding running and increased to 30ml/hr as per order. Residual at 5. Bed in lowest position.Call light within reach.
[2017-03-19] MEDS: NOREPINEPHRINE BITARTRATE 4 MG in D5W 246 ML IV PRN (21:01)
[2017-03-19] MEDS ORDERED: NOREPINEPHRINE 4 MG/4 ML VIAL IV ONE (21:04)
[2017-03-19] MEDS ORDERED: CEFEPIME 1 GM/VIAL (MAXIPIME) ONE (21:56)
[2017-03-19] MEDS: CEFEPIME 1 GM in D5W 50 ML IV SCH (22:01)
[2017-03-20] VITALS (24 sets, daily range): BP systolic 100–129
--- NOTE | 2017-03-20 01:30 | NUR ---
Tube feeding rate increased to 40ml/hr as per order. Zero residual at this time. Patient's vital stable. no sign of distress noted. Will continue to monitor.
--- NOTE | 2017-03-20 03:00 | NUR ---
Patient lying in bed with eyes open. No sign of distress noted. Patient tolerating tube feeding well. Residual at 5. Vitals stable. Will continue to monitor.
[2017-03-20] MEDS: KCL 20 mEq in D5NS 1000 mL 1,000 ML IV SCH ×2 (03:20→07:30)
[2017-03-20 04:56] LABS: BASOPHILS % (AUTO) 0.7 % (0.0-2.0); EOSINOPHILS # (AUTO) 0.1 K/uL (0.0-0.4); EOSINOPHILS % (AUTO) 2.3 % (0.0-4.0); HEMATOCRIT 38.8 % (36-48); HEMOGLOBIN 13.1 g/dL (12.0-16.0); LYMPHOCYTES # (AUTO) 1.2 K/uL (1.0-5.5); LYMPHOCYTES % (AUTO) 20.6 % (20.5-51.5); MEAN CORPUSCULAR HEMOGLOBIN 30 pg (27-31); MEAN CORPUSCULAR HGB CONC 34 % (32-36); MEAN CORPUSCULAR VOLUME 90 fL (79.0-98.0); MONOCYTES # (AUTO) 0.4 K/uL (0.0-1.0); MONOCYTES % (AUTO) 6.5 % (1.7-9.3); NEUTROPHILS # (AUTO) 4.1 K/uL (1.8-7.7); NEUTROPHILS % (AUTO) 69.9 % (40.0-70.0); PLATELET COUNT (AUTO) 257 K/uL (130-430); RED BLOOD CELL COUNT(AUTO) 4.32 MIL/uL (4.2-6.2); RED CELL DISTRIBUTION WIDTH 16.1 % (9.0-15.0); WHITE BLOOD COUNT (AUTO) 5.8 K/uL (4.8-10.8)
[2017-03-20 05:06] LABS: CALCIUM 8.5 mg/dL (8.4-11.0); CREATININE 0.4 mg/dL (0.55-1.30); POTASSIUM 3.9 mmol/L (3.5-5.1)
--- NOTE | 2017-03-20 07:00 | NUR ---
CLOSING NOTES Patient in bed with eyes closed. Vital signs stable. No sign of distress noted. All needs met this shift. Will endorse to incoming nurse.
--- NOTE | 2017-03-20 07:53 | NUR ---
OPENING NOTE: RECEIVED REPORT FROM NIGHT NURSE. PATIENT IS RESTING COMFORTABLY IN BED. NO S/S OF DISTRESS OR SOB. PATIENT IS AWAKE WITH EYES OPEN. IV IS PATENT AND INFUSING. IVF RUNNING AT 150CC/HR AND LEVOPHED DRIP RUNNING AT 2MCG/MIN, HR. SUPRAPUBIC [place] IS DRAINING TO GRAVITY AT THE END OF THE BED, CLEAR URINE IS NOTED. FLEXI-SEAL IS DRAINING. SCD'S IN PLACE. CONTACT ISOLATION. VITAL SIGNS ARE STABLE. HEAD-TO-TOE ASSESSMENT COMPLETE. PATIENT IS BREATHING IS NON-LABORED AND SYMMETRICAL. SEIZURE PADS ARE ON, BED IN LOWEST POSITION, AND WILL CONTINUE TO MONITOR.
[2017-03-20] MEDS: VANCOMYCIN HCL 1 GM/NS PREMIX 250 ML IV SCH ×2 (08:00→20:03)
--- NOTE | 2017-03-20 08:10 | NUR ---
Jennifer rounds Dr. Adame making rounds. said to decrease fluids down to 60 ml/hr. Orders noted and carried out.
[2017-03-20] MEDS: PANTOPRAZOLE SODIUM 40 MG/VIAL (PROTONIX) IVP SCH ×2 (09:04→21:45)
[2017-03-20] MEDS: levETIRAcetam 500 MG in NS 100 ML IV SCH ×2 (09:05→22:49)
[2017-03-20] MEDS: MUPIROCIN 2% TOPICAL OINTMENT 22 GM TP SCH ×2 (09:05→21:46)
[2017-03-20] MEDS: MENTHOL/ZINC OXIDE 113 GM OINT. TP SCH ×4 (09:06→21:49)
[2017-03-20] MEDS: CEFEPIME 1 GM in D5W 50 ML IV SCH ×2 (09:54→21:45)
--- NOTE | 2017-03-20 14:08 | NUR ---
NUTRITION F/U Admitting Diagnosis Abd wall cellulitis, jejunostomy tube dislodge Reviewed Pertinent Medical/Surgical Hx Patient Other Medical Record Medical History Comment: TBI, seizure disorder, dysphagia, on JT and GT feeding per MD notes 03/16/17 s/p Gastrojejunostomy tube insertion Subjective Information Pt seen resting in bed, TF infusing during time of RD visit. Per RN, pt is tolerating TF,is now at goal rate of 45ml/hr (started 03/20 8am), 0 ml residual. Per EMR, abd is soft and non-distended w/ active bowel sounds. I/O: 1755/1390 (+365 ml) per 12 hours. +non-pitting edema of bilateral ankle and bilateral foot. Pt is not yet meeting optimal nutritional needs. Pt is not appropriate for nutrition education. Current Diet Order/Nutrition Support 03/18/17 TF Isosource 1.5 20 ml/hr, FWF 50ml per G&J ports Q6H via Jtube, increase rate by 10ml/hr Q6H to goal rate 45ml. per MD orders. Patient/Significant Other Unable To Verbalize Education Provided Not Indicated Pertinent Medications norepinephrine/D5% IV, KCl/D5%/NaCl IV at 60 ml/hr (245 kcal/day), zofran, vancomycin Pertinent Labs 03/20/17 BG 134 H, BUN 4L, Crea 0.4 L, Alb 3.4 Height (Feet) 5 feet Height (Inches) 3.00 inches Weight (Pounds) 132 pounds Weight (Calculated Kilograms) 59.442892 kilograms Patient Weight 59.874 kg Body Mass Index 23.38 kg/m2 %IBW 115 [place]/Adjusted Body Weight IBW: 115 lb, 52 kg Recent Weight Change Unknown Weight Status Appropriate Last BM March 19, 2017 (3x) Difficulty With: Swallowing Chewing Food Allergies No - Unknown Usual Diet At Home Isosource at 40 ml/hr via pump per past RD note 02/2017 Skin Integrity Comment: Aiden scale: 10 (03/20/17); per nursing notes, anterior ab: rash; R heel: wound Estimated Energy Expenditure (kcals/day) 6847-2711 kcal/day (BEE x 1.2-1.5 CBW for maintenance) Estimated Protein Required (g/day) 90-120 gm/day (1.5-2 gm/kg CBW for TBI) Estimated Fluid Required (l/day) 1.4-1.6 L/day (1 ml/kcal/day for maintenance) Problem/Etiology/Signs/Symptoms Inadequate nutrition intakes related to clogged GT as evidenced by NPO status and inability to meet optimal nutritional requirements for maintenance. (clogged GT-resolved, TF infusing via GJ tube, s/p GJ tube insertion) Expected Outcomes/Goals - Monitor TF intake w/ goal of pt meeting at least 75% of estimated nutritional needs, labs trending WNL, normal GI function, and skin integrity/wt maintenance Dietitian Recommendations * Continue TF Isosource 1.5 45ml/hr, FWF 50ml/hr per G &J ports Q6H via Jtube per MD orders. (current rate 45ml/hr provides 1620 calories, 100% of upper end of estimated caloric needs, 73 gm Protein/day, 81% of lower end of estimated protein needs per day.) Follow Up High Risk: F/U in 2-3days Follow Up By March 23, 2017 Alert Not Indicated
--- NOTE | 2017-03-20 19:30 | NUR ---
Initial Note Received report from SURI Garcia. Resting quietly, no apparent distress. Non verbal, opens eyes spontaneously. No shortness of breath noted. No signs of pain. Vital within normal limits. IV fluid infusing to right port-a-cath. No redness or swelling around insertion site. On levophed 2 mcg. Isosurce tube feeding via Jtube toleratin g well with no residual noted. Suprapubic cath in place with good urine output, yellow & clear. Flexiseal in place with dark liquid stool noted. Turned and repositioned with pillow support. Fall precautions in place.
[2017-03-20] MEDS: MENTHOL/ZINC OXIDE 113 GM OINT. TP PRN ×3 (21:47→21:49)
[2017-03-21] VITALS (23 sets, daily range): BP systolic 89–123
[2017-03-21] MEDS: NOREPINEPHRINE BITARTRATE 4 MG in D5W 246 ML IV PRN (05:45)
[2017-03-21 05:58] LABS: BASOPHILS % (AUTO) 0.5 % (0.0-2.0); CALCIUM 8.6 mg/dL (8.4-11.0); CREATININE 0.46 mg/dL (0.55-1.30); EOSINOPHILS # (AUTO) 0.2 K/uL (0.0-0.4); EOSINOPHILS % (AUTO) 2.2 % (0.0-4.0); HEMATOCRIT 38.1 % (36-48); HEMOGLOBIN 12.9 g/dL (12.0-16.0); LYMPHOCYTES # (AUTO) 1.9 K/uL (1.0-5.5); MEAN CORPUSCULAR HEMOGLOBIN 31 pg (27-31); MEAN CORPUSCULAR HGB CONC 34 % (32-36); MEAN CORPUSCULAR VOLUME 91 fL (79.0-98.0); MONOCYTES # (AUTO) 0.6 K/uL (0.0-1.0); MONOCYTES % (AUTO) 6.8 % (1.7-9.3); NEUTROPHILS # (AUTO) 6.7 K/uL (1.8-7.7); NEUTROPHILS % (AUTO) 70.5 % (40.0-70.0); PLATELET COUNT (AUTO) 233 K/uL (130-430); POTASSIUM 3.8 mmol/L (3.5-5.1); RED CELL DISTRIBUTION WIDTH 16.2 % (9.0-15.0); WHITE BLOOD COUNT (AUTO) 9.4 K/uL (4.8-10.8)
--- NOTE | 2017-03-21 07:00 | NUR ---
Closing note Resting quietly, no apparent distress. Vitals stable. Remains on levophed @ 2 mcg/min. Blood pressure stable. Turned frequently with pillow support. HOB elevated. Fall/seizure precautions maintained.
--- NOTE | 2017-03-21 08:00 | NUR ---
Received patient with eyes opened, and alert. Oriented x's one. Patient is on levophed drip at 2mcg/min and sbp >110. Patient has G-J tube feeding isosource 1.5 @ 45ml per hour and tolerating well. No sign of pain. Right heel with stage lll, and has heel optifoam drsg. Christoph Ortiz RN
[2017-03-21] MEDS: VANCOMYCIN HCL 1 GM/NS PREMIX 250 ML IV SCH ×2 (08:40→19:45)
[2017-03-21] MEDS: CEFEPIME 1 GM in D5W 50 ML IV SCH ×2 (08:45→21:15)
[2017-03-21] MEDS: levETIRAcetam 500 MG in NS 100 ML IV SCH ×2 (08:51→21:19)
[2017-03-21] MEDS: MENTHOL/ZINC OXIDE 113 GM OINT. TP SCH (08:53)
[2017-03-21] MEDS: PANTOPRAZOLE SODIUM 40 MG/VIAL (PROTONIX) IVP SCH ×2 (08:54→21:15)
[2017-03-21] MEDS: MUPIROCIN 2% TOPICAL OINTMENT 22 GM TP SCH ×2 (08:54→21:16)
[2017-03-21] MEDS: KCL 20 mEq in D5NS 1000 mL 1,000 ML IV SCH (08:55)
--- NOTE | 2017-03-21 10:00 | NUR ---
Patient on levophed and decrease to 1mcg/min, and patient sbp > 90. Repositioned to comfort. Christoph Ortiz RN
--- NOTE | 2017-03-21 12:00 | NUR ---
Patient receiving tube feed isosource 1.5 @ 45 ml per hour and tolerating well. Patient has flexicele and no stool additional stool observed since this morning. Christoph Ortiz RN
--- NOTE | 2017-03-21 14:00 | NUR ---
Patient off levophed and tolerating well. Patient sbp>90. HOB elevated 30 degrees. No signs of pain. Christoph Ortiz RN
--- NOTE | 2017-03-21 16:00 | NUR ---
Patient repositioned to comfort, and hob elevated. Patient tolerating tube feed, and residual 0ml. Christoph Ortiz RN
--- NOTE | 2017-03-21 18:00 | NUR ---
Patient with complete bath, and total line change. Patient has been off levophed since 1440, and sbp >90. Christoph Ortiz RN
--- NOTE | 2017-03-21 19:30 | NUR ---
Received patient in bed. Awake and alert oriented x1. Patient has G-J tube feeding isosource 1.5 @ 45ml per hour and tolerating well. No acute distress. Right heel with stage lll, and has heel optifoam dressing. In comfortable position. Will continue to monitor.
[2017-03-22] VITALS (14 sets, daily range): BP systolic 88–109
--- NOTE | 2017-03-22 07:10 | NUR ---
RECEIVED PATIENT ON BED ASLEEP.BREATHING EVEN AND UNLABORED.IVF INFUSING WELL;TOLERATING WELL.WITH JTF AT 45 ML/HR;TOLERATING WELL.WITH SUPRAPUBIC CATHETER INTACT AND PATENT DRAINING YELLOW URINE.WITH FLEXI SEAL INTACT AND PATENT DRAINING WATERY GREENISH STOOL.SAFETY AND FALL PRECAUTIONS IN PLACE.CALL LIGHT WITHIN REACH
[2017-03-22] MEDS: KCL 20 mEq in D5NS 1000 mL 1,000 ML IV SCH (07:35)
[2017-03-22] MEDS: VANCOMYCIN HCL 1 GM/NS PREMIX 250 ML IV SCH ×2 (07:35→22:07)
[2017-03-22] MEDS: PANTOPRAZOLE SODIUM 40 MG/VIAL (PROTONIX) IVP SCH ×2 (08:23→20:46)
[2017-03-22] MEDS: CEFEPIME 1 GM in D5W 50 ML IV SCH ×2 (08:27→21:35)
[2017-03-22] MEDS: levETIRAcetam 500 MG in NS 100 ML IV SCH ×2 (08:29→20:59)
[2017-03-22] MEDS: MUPIROCIN 2% TOPICAL OINTMENT 22 GM TP SCH ×2 (08:58→22:10)
--- NOTE | 2017-03-22 09:43 | NUR ---
DR. HARRIS CAME AND EXAMINED THE PATIENT;WAITING FOR ORDERS
--- NOTE | 2017-03-22 10:45 | NUR ---
RECEIVED ORDER TO TRANSFER PATIENT TO TELEMETRY;CARRIED OUT
--- NOTE | 2017-03-22 10:50 | NUR ---
CHANGED BRIGIDA CATH DRESSING;NO SIGNS AND SYMPTOMS OF INFECTION
--- NOTE | 2017-03-22 11:00 | NUR ---
CALLED TELEMETRY;REPORT GIVEN TO LINDA
--- NOTE | 2017-03-22 11:15 | NUR ---
PATIENT TRANSFERRED TO TELEMETRY ROOM 133 A IN A STABLE CONDITION.ENDORSED ALL CARE TO LINDA(RN).
--- NOTE | 2017-03-22 11:30 | NUR ---
PATIENT RECEIVED REPORT FROM YESI MCCORD, PATIENT IN STABLE CONDITION, WILL CONTINUE TO MONITOR. BED IN LOWEST POSITION, THREE SIDE RAILS UP, BED ALARM ON, FALL, ASPIRATION, ISOLATION AND SEIZURE PRECAUTIONS IN PLACE.
--- NOTE | 2017-03-22 13:16 | NUR ---
RN ROUNDS PATIENT RESTING IN BED, EYES CLOSED, BREATHING IS EVEN AND UNLABORED, NO SIGNS OF DISTRESS, BED IN LOWEST POSITION, THREE SIDE RAILS UP, BED ALARM ON, BED CLOSE TO NURSE'S STATION, FALL, ASPIRATION, ISOLATION AND FALL PRECAUTIONS, WILL CONTINUE TO MONITOR.
[2017-03-22] MEDS: MENTHOL/ZINC OXIDE 113 GM OINT. TP SCH ×3 (13:24→22:12)
--- NOTE | 2017-03-22 13:25 | NUR ---
WOUND CARE Wound Assessment: 1. G-Tube Dolly-Site and Surrounding Tissue Erythema, non-intact skin, and multiple scabs from from GJ Tube leakage/drainage, present on admission. No odor, no drainage. Surrounding tissue erythematous. Measures 6.5 cm x 9.0 cm. GJ-tube Balloon was visible, and GJ tube was pushed back into place. Will inform physician. Cleansed area with normal saline. Patted dry. Put Calmoseptine cream onto involved area. Covered with drain pads, and secure with paper tape. Performing site care q shift and as needed for dressing soiling or dislodgement. 2. Right Heel: Chronic pressure ulcer site, prior unknown stage, present on admission. Wound bed has black eschar with soft pink scan, and dry peeling skin. No odor, no drainage. Measures 2.2 cm x 4.0 cm. 3. Left Heel: Blanchable redness, with dark discoloration, present on admission. Scar tissue present, with thin wall of tissue present between bone and skin, sharp, bony feel. No odor, no drainage. 4. Right Dorsal Foot: Appears to be scar tissue, present on admission. No odor, no drainage. Covered dorsal foot and bilateral heels with foam dressings. Elevating, offloading and floating heels at all times with pillows. Placing a pillow between the knees. 5. Suprapubic catheter: Site has erythema from catheter leakage, present on admission. Cleansing involved areas with mild soap and water. Patting dry. Apply Calmoseptine cream to involved areas 4 times a day, and as needed for soiling. Repositioning patient side to side only every two hours with pillow support, and off-load pressure areas with pillows for pressure re-distribution. Performing skin care and monitor skin integrity q shift. Elevating, offloading and floating heels at all times with one pillow lengthwise for each extremity (Left Foot has severe foot drop, and will require extra pillows to float). Using Calmoseptine cream on reddened and moisture susceptible areas qid and prn for soiling. Maintaining patient on a low air-loss mattress. Placing Right Heel in a Heelift Boot (make sure heel floats in boot at all times, cut boot if necessary to allow heel to float).
--- NOTE | 2017-03-22 14:03 | NUR ---
Wound Re-Evaluation: Wound Consult received for a low Aiden score. Patient was awake, non-verbal, does not track with eyes, and received in a [place] bed with an IsoFlex DEEPALI mattress with low air-loss therapy. Aiden score is a 10. Skin is poor; Incontinent of bowel; All extremities contracted. Intrinsic Factors that delay wound healing: Chronic Encephalopathy. Extrinsic factors that decrease wound healing: decreased mobility. Blood culture 2 results negative. Wound Assessment: 1. G-Tube Dolly-Site and Surrounding Tissue Erythema, non-intact skin, and multiple scabs from from GJ Tube leakage/drainage, present on admission. No odor, no drainage. Surrounding tissue erythematous. Recommend continue: Cleanse area with normal saline. Pat dry. Put Calmoseptine cream onto involved area. Cover with drain pads, and secure with paper tape. Perform site care q shift and as needed for dressing soiling or dislodgement. 2. Right Heel: Chronic pressure ulcer site, prior unknown stage, present on admission. Wound bed has black eschar with soft pink scan, and dry peeling skin. No odor, no drainage. Recommend: Place a foam dressing on Right Heel and place it in a Heelift Boot (make sure heel floats in boot at all times, cut boot if necessary to allow heel to float). 3. Left Heel: Blanchable redness, with dark discoloration, present on admission. Scar tissue present, with thin wall of tissue present between bone and skin, sharp, bony feel. No odor, no drainage. 4. Right Dorsal Foot: Scar tissue, present on admission. No odor, no drainage. Recommend: Cover dorsal foot and left heel with foam dressings. Elevate, offload and float heels at all times with pillows. Place a pillow between the knees. 5. Suprapubic catheter: Site has erythema from catheter leakage, present on admission. Recommend continue: Cleanse involved areas with mild soap and water. Pat dry. Apply Calmoseptine cream to involved areas 4 times a day, and as needed for soiling. Also recommend continue: Reposition patient side to side only every two hours with pillow support, and off-load pressure areas with pillows for pressure re-distribution. Perform skin care and monitor skin integrity q shift. Elevate, offload and float left heel at all times with one pillow lengthwise (Left Foot has severe foot drop, and will require extra pillows to float). Use Calmoseptine cream on reddened and moisture susceptible areas qid and prn for soiling. Maintain patient on a low air-loss mattress. Place Right Heel in a Heelift Boot (make sure heel floats in boot at all times, cut boot if necessary to allow heel to float). Addendum: 03/22/17 at 1412 by Tay Hi RN Assessment provided by SURI Lindsey.
--- NOTE | 2017-03-22 15:18 | NUR ---
RN ROUNDS PATIENT RESTING IN BED, EYES CLOSED, BREATHING IS EVEN AND UNLABORED, NO SIGNS OF DISTRESS, BED IN LOWEST POSITION, THREE SIDE RAILS UP, BED ALARM ON, BED CLOSE TO NURSE'S STATION, FALL, ASPIRATION, ISOLATION AND FALL PRECAUTIONS, WILL CONTINUE TO MONITOR, TOLERATING TUBE FEEDING WELL AT THIS TIME.
--- NOTE | 2017-03-22 15:39 | NUR ---
DR CRONIN ROUNDS WILL FOLLOW UP WITH ANY NEW ORDERS.
--- NOTE | 2017-03-22 16:41 | NUR ---
BLEEDING INFORMED BY SCRUMMASTER THAT PATIENT HAS BRIGHT RED BLOOD AROUND MARÍA AREA, ASSESSED THE AREA, UNSURE IF BLEEDING IS COMING FROM RECTAL AREA OR FROM VAGINA, PAGED DR CRONIN TO INFORM, WILL CONTINUE TO MONITOR. ASSISTED THE SCRUMMASTER TO TURN AND REPOSITION AND CLEAN THE PATIENT. BED IN LOWEST POSITION, THREE SIDE RAILS UP, BED ALARM ON, BED CLOSE TO NURSE'S STATION, FALL, ASPIRATION, SEIZURE AND ISOLATION PRECAUTIONS IN PLACE.
--- NOTE | 2017-03-22 17:35 | NUR ---
RN ROUNDS NO CALL BACK YET FROM DR CRONIN, CONTINUING TO MONITOR FOR BLEEDING, NO FURTHER BLEEDING AT THIS TIME, BED IN LOWEST POSITION, THREE SIDE RAILS UP, BED ALARM ON, BED CLOSE TO NURSE'S STATION, FALL, ASPIRATION, ISOLATION AND SEIZURE PRECAUTIONS IN PLACE.
--- NOTE | 2017-03-22 18:41 | NUR ---
CLOSING NOTES PATIENT RESTING IN BED, FAMILY AT BEDSIDE, UPDATES GIVEN, NO OTHER NEEDS AT THIS TIME, ALL NEEDS MET, WILL ENDORSE REPORT TO NOC SHIFT NURSE, BED IN LOWEST POSITION, THREE SIDE RAILS UP, BED ALARM ON, BED CLOSE TO NURSE'S STATION, FALL, ASPIRATION, SEIZURE AND ISOLATION PRECAUTIONS IN PLACE.
--- NOTE | 2017-03-22 19:45 | NUR ---
ROUNDS PATIENT IN BED, NOT IN DISTRESS, VITALS STABLE, NO SIGNS OF ANY PAIN AND DISCOMFORT NOTED AT THIS TIME. ASSESSMENT DONE AND DOCUMENTED. SEE FLOWSHEET. NEEDS ATTENDED TO. REPOSITIONED AND MADE COMFORTABLE. SAFETY AND FALL PRECAUTION MEASURES MAINTAINED. BED IN LOW AND LOCKED POSITION. CALL LIGHT PLACED WITHIN REACH.
--- NOTE | 2017-03-22 21:15 | NUR ---
MEDICATION DUE MEDICATIONS GIVEN ORDERED, TOLERATED WELL. WILL CONTINUE TO MONITOR.
[2017-03-22] MEDS: MENTHOL/ZINC OXIDE 113 GM OINT. TP PRN (22:10)
--- NOTE | 2017-03-23 00:06 | NUR ---
PATIENT RESTING: Patient resting quietly. No acute distress noted. Vital signs within normal range.
[2017-03-23 01:55] VITALS: BP_SYST 109
--- NOTE | 2017-03-23 02:00 | NUR ---
PATIENT RESTING: Patient resting quietly. No acute distress noted. Vital signs within normal range.
--- NOTE | 2017-03-23 04:00 | NUR ---
PATIENT RESTING: Patient resting quietly. No acute distress noted. Vital signs within normal range.
[2017-03-23 05:41] VITALS: BP_SYST 106
--- NOTE | 2017-03-23 06:50 | NUR ---
CLOSING NOTES PATIENT REMAINED STABLE, ALL NEEDS ATTENDED TO, SAFETY MEASURES MAINTAINED.WILL ENDORSE TO INCOMING NURSE.
[2017-03-23 07:31] LABS: HEMATOCRIT 38.2 % (36-48); HEMOGLOBIN 12.9 g/dL (12.0-16.0); MEAN CORPUSCULAR HEMOGLOBIN 31 pg (27-31); MEAN CORPUSCULAR HGB CONC 34 % (32-36); MEAN CORPUSCULAR VOLUME 90 fL (79.0-98.0); PLATELET COUNT (AUTO) 246 K/uL (130-430); RED BLOOD CELL COUNT(AUTO) 4.22 MIL/uL (4.2-6.2); RED CELL DISTRIBUTION WIDTH 15.8 % (9.0-15.0)
[2017-03-23 07:46] LABS: CALCIUM 8.7 mg/dL (8.4-11.0); CREATININE 0.35 mg/dL (0.55-1.30); POTASSIUM 4.1 mmol/L (3.5-5.1)
[2017-03-23 08:00] VITALS: BP_SYST 136
--- NOTE | 2017-03-23 08:00 | NUR ---
RN Starting Note patient was assessed vital signs are stable. zero residual from the G tube. patient will be given her medication at 0900
[2017-03-23 08:04] LABS: WHITE BLOOD COUNT (AUTO) 23.8 K/uL (4.8-10.8)
[2017-03-23] MEDS: PANTOPRAZOLE SODIUM 40 MG/VIAL (PROTONIX) IVP SCH ×2 (08:21→21:08)
[2017-03-23] MEDS: MUPIROCIN 2% TOPICAL OINTMENT 22 GM TP SCH ×2 (08:21→21:09)
[2017-03-23] MEDS: levETIRAcetam 500 MG in NS 100 ML IV SCH ×2 (08:21→22:25)
[2017-03-23] MEDS: CEFEPIME 1 GM in D5W 50 ML IV SCH ×2 (08:21→23:39)
[2017-03-23] MEDS: MENTHOL/ZINC OXIDE 113 GM OINT. TP SCH ×4 (08:22→21:12)
[2017-03-23 08:31] LABS: ATYPICAL LYMPHOCYTES % 0 % (0-0); BAND % (MANUAL) 4 % (0-6); BASOPHILS % (MANUAL) 0 % (0-2); EOSINOPHILS % (MANUAL) 4 % (0-7); LYMPHOCYTES % (MANUAL) 20 % (20-46); MONOCYTES % (MANUAL) 7 % (0-11)
--- NOTE | 2017-03-23 10:00 | NUR ---
RN Rounds patient lying on bed, patient was repositioned. patient appear not to be on pain by Flacc scale. will follow up
--- NOTE | 2017-03-23 12:00 | NUR ---
RN ROUNDS PATIENT LYING ON BED OPEN EYES SMILES. PATIENT WAS REPOSITIONED. G TUBE WAS FLUSHED WITH 50 CC WATER, WILL FOLLOW UP
[2017-03-23 12:12] VITALS: BP_SYST 117
[2017-03-23 12:55] LABS: BILIRUBIN,URINE NEGATIVE (NEGATIVE); CLARITY/URINE CLOUDY (CLEAR); COLOR,URINE YELLOW (YELLOW); GLUCOSE,URINE NEGATIVE (NEGATIVE); KETONES,URINE NEGATIVE (NEGATIVE); LEUKOCYTE ESTERASE ,URINE 3+ (NEGATIVE); NITRITE, URINE NEGATIVE (NEGATIVE); PH,URINE 5.5 (5.0-8.0); PROTEIN URINE NEGATIVE (NEGATIVE); UROBILINOGEN,URINE 0.2 (0.2-1.0)
[2017-03-23 12:59] LABS: BLOOD, URINE TRACE (NEGATIVE)
[2017-03-23 13:06] LABS: RBC,URINE 0-3 /HPF (0-3)
[2017-03-23 13:07] LABS: BACTERIA,URINE MODERATE /HPF (None Seen); YEAST,URINE Many /HPF (None Seen)
[2017-03-23] MEDS ORDERED: metroNIDAZOLE 500 MG TABLET PO SCH (14:00)
--- NOTE | 2017-03-23 14:00 | NUR ---
RN ROUNDS PATIENT LYING ON BED, WAS REPOSITIONED.SHOWS NO PAIN OR DISCOMFORT. FEEDING TUBE WITH ZERO RESIDUAL,
--- NOTE | 2017-03-23 16:00 | NUR ---
RN ROUNDS PATIENT WAS REPOSITIONED, NO SIGNS OF PAIN OR DISCOMFORT. ORAL CARE HAS BEEN DONE TO THE PATIENT. MOTHER OF THE PATIENT CAME BY AND WAS EDUCATED ABOUT THE SEIZURE PRECAUTIONS AND FALL PRECAUTION. SHE VERBALIZED UNDERSTANDING
[2017-03-23 16:54] VITALS: BP_SYST 136
--- NOTE | 2017-03-23 16:59 | NUR ---
Nutrition F/U Admitting Diagnosis Abd wall cellulitis, jejunostomy tube dislodge Reviewed Pertinent Medical/Surgical Hx Patient Medical Record Medical History Comment: TBI, seizure disorder, dysphagia, on JT and GT feeding per MD notes 03/16/17 s/p Gastrojejunostomy tube insertion Subjective Information Pt seen resting in bed, +non-verbal, w/ TF infusing at time of RD visit. Per nursing notes, pt had zero residual this morning. Per EMR, TF Intakes: 540 ml 03/23/17. Residuals: 0 ml 03/22/17. Active bowel sounds. I/O: 0/750 (-750 ml) per 12 hours. Pt is not yet meeting optimal nutritional needs. Pt is not appropriate for nutrition education. Current Diet Order/Nutrition Support Isosource 1.5 at 20 ml/hr, increase rate by 10 ml/hr q6h to goal 45; use G port for meds, Free Water Flush: 50 ml per G & J ports q6h via JT Patient/Significant Other Unable To Verbalize Education Provided Not Indicated Pertinent Medications flagyl, protonix IV, morphine, zofran Pertinent Labs BG 111 H, BUN 12 WNL (improved), CRE 0.35 L, WBC 23.8 H Height (Feet) 5 feet Height (Inches) 3.00 inches Weight (Pounds) 132 pounds (admission) BEDSCALE WT: 138.9 lb, 63 kg (03/23/17) -- unsure of accuracy as bedscale may not have been calibrated Weight (Calculated Kilograms) 59.577126 kilograms Patient Weight 59.874 kg Body Mass Index 23.38 kg/m2 %IBW 115 [place]/Adjusted Body Weight IBW: 115 lb, 52 kg Recent Weight Change Unknown Weight Status Appropriate Last BM March 19, 2017 (x2) Difficulty With: Swallowing Chewing Food Allergies No - Unknown Usual Diet At Home Isosource at 40 ml/hr via pump per past RD note 02/2017 Skin Integrity Comment: Aiden scale: 13; per Wire Coating Machine Operator note 03/22/17: 1. G-Tube Dolly-Site and Surrounding Tissue: Erythema, non-intact skin, and multiple scabs from from GJ Tube leakage/drainage, present on admission. 2. Right Heel: Chronic pressure ulcer site, prior unknown stage, present on admission. 3. Left Heel: Blanchable redness, with dark discoloration, present on admission. 4. Right Dorsal Foot: Scar tissue, present on admission. No odor, no drainage. 5. Suprapubic catheter: Site has erythema from catheter leakage, present on admission. Estimated Energy Expenditure (kcals/day) 8117-9768 kcal/day (BEE x 1.2-1.5 CBW for maintenance) Estimated Protein Required (g/day) 90-120 gm/day (1.5-2 gm/kg CBW for TBI) Estimated Fluid Required (l/day) 1.4-1.6 L/day (1 ml/kcal/day for maintenance) Problem/Etiology/Signs/Symptoms Inadequate nutrition intakes related to clogged GT as evidenced by NPO status and inability to meet optimal nutritional requirements for maintenance. (clogged GT-resolved, TF infusing via GJ tube, s/p GJ tube insertion) Expected Outcomes/Goals - Monitor TF intake w/ goal of pt meeting at least 75% of estimated nutritional needs, labs trending WNL, normal GI function, and skin integrity/wt maintenance Dietitian Recommendations * Recommend continuing Isosource 1.5 at 20 ml/hr, increase rate by 10 ml/hr q6h to goal 45; use G port for meds, Free Water Flush: 50 ml per G & J ports q6h via JT Provides: 1620 kcal/day, 73 gm protein/day, and 1225 ml free water/day Meets: approximately 100% of upper end of estimated caloric needs and 81% of lower end of estimated protein needs Follow Up Moderate Risk: F/U in 3-5 days Addendum: 03/23/17 at [address] Nutrition Consult (Aiden 12, Chronic stable PU) 03/18/17 [id number] noted
--- NOTE | 2017-03-23 18:00 | NUR ---
RN CLOSING NOTES PATIENT LYING ON BED WAS REPOSITIONED. MOTHER IS ABOUT TO LEAVE THE ROOM. JOSEY THE CHARGE NURSE REQUESTED ME TO REMOVE THE RECTAL TUBE, SINCE THERE WAS NO STOOL COMING OUT OF THE PATIENT THE WHOLE DAY, THE TUBE WAS REMOVED AND PATIENT WAS CLEANED AND RESPOSITIONED WILL SIGN OFF TO THE NEXT SHIFT
[2017-03-23] MEDS: KCL 20 mEq in D5NS 1000 mL 1,000 ML IV SCH (18:42)
[2017-03-23 19:30] VITALS: BP_SYST 104
--- NOTE | 2017-03-23 19:30 | NUR ---
Initial note A/O x 1, no SOB, no chest pain, no grimacing at rest, but some grimacing when move/reposition patient. Skin warm to touch, Port-A-Cath at R upper chest, IVF ongoing. GT in place, 0 ml residual, dress clean and dry. Isosource @ 45 ml/hr. Suprapubic cath in place, site clean, about 300 ml clear yellow urine noted in the bag. Discoloration at R heel, +1 pedal pulses. Quadriplegia. Seizure precaution applied, SCD in place, heel protector on R heel. Contact isolation for MRSA on nares. Call light within reach, bed at lowest position, will continued to monitor patient. Called lab and informed them there is blood culture order. pharmacy technician assistant will be here shortly.
[2017-03-23] MEDS: VANCOMYCIN HCL 1 GM/NS PREMIX 250 ML IV SCH (20:34)
--- NOTE | 2017-03-23 22:11 | NUR ---
Rounds No SOB, no chest pain, no grimacing. IVF ongoing. GT in place, 0 ml residual, dress clean and dry. Flagyl given via GT. Isosource @ 45 ml/hr. Suprapubic cath in place. Seizure precaution applied, SCD in place, heel protector on R heel. Contact isolation for MRSA on nares. Repositioned patient Q2H. Call light within reach, bed at lowest position, will continued to monitor patient.
[2017-03-23] MEDS: metroNIDAZOLE 500 MG TABLET GT SCH (23:39)
--- NOTE | 2017-03-24 00:20 | NUR ---
Rounds No SOB, no chest pain, no grimacing. IVF ongoing. GT in place, 50 ml water flushed. GTF ongoing. Suprapubic cath in place. Seizure precaution applied, SCD in place, heel protector on R heel. Contact isolation for MRSA on nares. Repositioned patient Q2H. Call light within reach, bed at lowest position, will continued to monitor patient.
--- NOTE | 2017-03-24 00:30 | NUR ---
Current IVF bag ongoing, about 700 ml in the bag. IV bag not change at this time.
[2017-03-24 01:37] VITALS: BP_SYST 105
--- NOTE | 2017-03-24 01:45 | NUR ---
Current GT bag empty. Changed a new bag.
--- NOTE | 2017-03-24 02:12 | NUR ---
Rounds No SOB, no chest pain, no grimacing. IVF ongoing. GTF ongoing. Suprapubic cath in place. Seizure precaution applied, SCD in place, heel protector on R heel. Contact isolation for MRSA on nares. Repositioned patient Q2H. Call light within reach, bed at lowest position, will continued to monitor patient.
--- NOTE | 2017-03-24 04:24 | NUR ---
Rounds No SOB, no chest pain, no grimacing. IVF ongoing. GTF ongoing. Suprapubic cath in place. Seizure precaution applied, SCD in place, heel protector on R heel. Contact isolation for MRSA on nares. Call light within reach, bed at lowest position, will continued to monitor patient.
[2017-03-24 04:26] VITALS: BP_SYST 107
[2017-03-24] MEDS: metroNIDAZOLE 500 MG TABLET GT SCH ×3 (05:28→22:46)
--- NOTE | 2017-03-24 05:35 | NUR ---
Flagyl GT given with 50 ml water flushed. About 10 ml residual. HOB > 30-45. Seizure precaution applied, SCD in place, bed at lowest position, bed alarm on, will continue to monitor patient.
--- NOTE | 2017-03-24 06:35 | NUR ---
Reported to Dr. Olson regarding patient bleeding from either vagina or rectum. instructed to continue to monitor patient.
--- NOTE | 2017-03-24 06:50 | NUR ---
Closing note Resting in bed. No SOB, no chest pain, no grimacing. IVF ongoing. GTF ongoing. Suprapubic cath in place. Seizure precaution applied, aspiration precaution applied. SCD in place, heel protector on R heel. Contact isolation for MRSA on nares. Call light within reach, bed at lowest position, will give report to incoming nurse regarding patient condition, and bleeding. Addendum: 03/24/17 at 0700 by Mendoza Noonan RN Still have about 300 ml IVF in the bag, no changed yet.
[2017-03-24 07:50] LABS: BASOPHILS % (AUTO) 0.4 % (0.0-2.0); EOSINOPHILS # (AUTO) 0.1 K/uL (0.0-0.4); EOSINOPHILS % (AUTO) 1.9 % (0.0-4.0); HEMATOCRIT 36.9 % (36-48); HEMOGLOBIN 12.2 g/dL (12.0-16.0); LYMPHOCYTES # (AUTO) 1.9 K/uL (1.0-5.5); LYMPHOCYTES % (AUTO) 25.3 % (20.5-51.5); MEAN CORPUSCULAR HEMOGLOBIN 30 pg (27-31); MEAN CORPUSCULAR HGB CONC 33 % (32-36); MEAN CORPUSCULAR VOLUME 91 fL (79.0-98.0); MONOCYTES # (AUTO) 0.8 K/uL (0.0-1.0); MONOCYTES % (AUTO) 10.5 % (1.7-9.3); NEUTROPHILS # (AUTO) 4.6 K/uL (1.8-7.7); NEUTROPHILS % (AUTO) 61.9 % (40.0-70.0); PLATELET COUNT (AUTO) 222 K/uL (130-430); RED BLOOD CELL COUNT(AUTO) 4.06 MIL/uL (4.2-6.2); RED CELL DISTRIBUTION WIDTH 15.1 % (9.0-15.0)
[2017-03-24 08:00] VITALS: BP_SYST 107
--- NOTE | 2017-03-24 08:00 | NUR ---
INITIAL NOTE PT AWAKE, NONVERBAL, ABLE TO TRACK MOVEMENT WITH EYES, VSS, NO S/S OF ACUTE DISTRESS, IV TO RIGHT UPPER CHEST PORTCATH, INTACT WITH IV FLUIDS INFUSING AT ORDERED RATE, SITE CLEAN DRY AND INTACT, GTUBE FEEDING IN PLACE AND INFUSING AT ORDERED RATE, SUPRAPUBIC CATHETER IN PLACE AND DRAINING YELLOW URINE TO GRAVITY, PER REPORT, PT IS HAVING BLEEDING FROM VAGINA OR RECTUM, MD AWARE AND ORDER IS TO MONITOR BLEEDING . SEIZURE, ASPIRATION, SAFETY AND ISOLATION PRECAUTIONS IN PLACE, AND WILL CONTINUE WITH, BED IN LOW POSITION AND LOCKED, CALL LIGHT WITHIN REACH, WILL FOLLOW UP
[2017-03-24 08:09] LABS: WHITE BLOOD COUNT (AUTO) 7.4 K/uL (4.8-10.8)
[2017-03-24] MEDS: KCL 20 mEq in D5NS 1000 mL 1,000 ML IV SCH (08:12)
[2017-03-24] MEDS: VANCOMYCIN HCL 1 GM/NS PREMIX 250 ML IV SCH ×2 (08:14→19:51)
[2017-03-24] MEDS: PANTOPRAZOLE SODIUM 40 MG/VIAL (PROTONIX) IVP SCH ×2 (08:15→20:41)
[2017-03-24] MEDS: MUPIROCIN 2% TOPICAL OINTMENT 22 GM TP SCH ×2 (08:15→20:42)
--- NOTE | 2017-03-24 08:15 | NUR ---
IV VANCOMYCIN HANGED, WILL INFUSING AND WHEN COMPLETE BEGIN WITH NEXT SCHEDULED ANTIBIOTIC. IV ACCESS INTACT, NO S/S OF INFILTRATION NOTED, WILL FOLLOW UP
[2017-03-24] MEDS: MENTHOL/ZINC OXIDE 113 GM OINT. TP SCH ×4 (08:16→20:43)
--- NOTE | 2017-03-24 09:30 | NUR ---
PER BURNISHER, PORTCATH WAS NOTED TO BE DISLODGED, NEW PORTCATH INSERTED, IV INFUSION CONTINUED, IT IS NOTED THAT PATIENTS RIGHT CONTRACTED HAND/ARM IS ABLE TO MOVE AND RUB AT PORTCATH SITE, WILL CONTINUE TO MONITOR
[2017-03-24] MEDS ORDERED: FLUCONAZOLE 200 MG TABLET (DIFLUCAN) PO ONE (10:15)
[2017-03-24] MEDS: CEFEPIME 1 GM in D5W 50 ML IV SCH ×2 (10:26→20:41)
[2017-03-24] MEDS: levETIRAcetam 500 MG in NS 100 ML IV SCH ×2 (11:23→22:47)
--- NOTE | 2017-03-24 11:30 | NUR ---
ROUNDS PT REPOSITIONED TO OPPOSITE SIDE WITH PILLOW SUPPORT TO BACK AND BILATERAL LOWER EXTREMITIES, NO S/S OF ACUTE DISTRESS, VSS, GJ TUBE FEEDING IN PLACE, IV SITE INTACT AND INFUSING FLUIDS AT ORDERED RATE, SAFETY MEASURES IN PLACE, CALL LIGHT WITHIN REACH, BED IN LOW POSITION AND LOCKED, WILL CONTINUE TO MONITOR
--- NOTE | 2017-03-24 11:52 | NUR ---
DISCHARGE PLANNING Faxed DC Planning order to [place] [facility] [phone]. Notified Uvaldo Perales Liaison Will follow up.
--- NOTE | 2017-03-24 11:53 | NUR ---
DC planning: S/W Dr. Olson regarding dc plan-Pt on 2 IV abx, IV Keppra, IV Protonix, IVF--BC and urine cx pending--WBC 23.8 yesterday- today is 7.4--He gave telephone order for LTAC evaluation--CHRISTA MCCORD
--- NOTE | 2017-03-24 11:57 | NUR ---
Wound Re-Evaluation: Wound Consult received for a low Aiden score. Patient was awake, non-verbal, does not track with eyes, and received in a Chinmay bed with an IsoFlex DEEPALI mattress with low air-loss therapy. Aiden score is an 11. Skin is poor; Incontinent of bowel; All extremities contracted. Intrinsic Factors that delay wound healing: Chronic Encephalopathy. Extrinsic factors that decrease wound healing: decreased mobility. Skin care provided by day shift nurse. Assessment provided by SURI Savage. Wound Assessment: 1. G-Tube Dolly-Site and Surrounding Tissue (Erythema, non-intact skin, and multiple scabs from from GJ Tube leakage/drainage, present on admission). Erythema present. No odor, no drainage. Surrounding tissue erythematous. Recommend continue: Cleanse area with normal saline. Pat dry. Put Calmoseptine cream onto involved area. Cover with drain pads, and secure with paper tape. Perform site care q shift and as needed for dressing soiling or dislodgement. 2. Right Heel: Chronic pressure ulcer site, prior unknown stage, present on admission. Wound bed has black eschar with soft pink scan, and dry peeling skin. No odor, no drainage. Recommend continue: Place a foam dressing on Right Heel and place it in a Heelift Boot (make sure heel floats in boot at all times, cut boot if necessary to allow heel to float). 3. Left Heel: Blanchable redness, with dark discoloration, present on admission. Scar tissue present, with thin wall of tissue present between bone and skin, sharp, bony feel. No odor, no drainage. 4. Right Dorsal Foot: Scar tissue, present on admission. No odor, no drainage. Recommend continue: Cover dorsal foot and left heel with foam dressings. Elevate, offload and float heels at all times with pillows. Place a pillow between the knees. 5. Suprapubic catheter: Site has erythema from catheter leakage, present on admission. Recommend continue: Cleanse involved areas with mild soap and water. Pat dry. Apply Calmoseptine cream to involved areas 4 times a day, and as needed for soiling. Also recommend continue: Reposition patient side to side only every two hours with pillow support, and off-load pressure areas with pillows for pressure re-distribution. Perform skin care and monitor skin integrity q shift. Elevate, offload and float left heel at all times with one pillow lengthwise (Left Foot has severe foot drop, and will require extra pillows to float). Use Calmoseptine cream on reddened and moisture susceptible areas qid and prn for soiling. Maintain patient on a low air-loss mattress. Place Right Heel in a Heelift Boot (make sure heel floats in boot at all times, cut boot if necessary to allow heel to float).
[2017-03-24 12:00] VITALS: BP_SYST 104
--- NOTE | 2017-03-24 13:30 | NUR ---
ROUNDS PT AWAKE, TRACKS MOVEMENT WITH EYES, NO S/S OF ACUTE DISTRESS, TIME APPROPRIATE MEDICATION ADMINISTERED, GTUBE FLUSHED WITH 50CC WATER, NO RESIDUAL NOTED, OINTMENT APPLIED TO BUTTOCK, SUPRAPUBIC AREA AND GTUBE SITE, PT REPOSITIONED WITH PILLOW SUPPORT TO BACK AND BILATERAL LOWER EXTREMITIES, SAFETY MEASURES IN PLACE, CALL LIGHT WITHIN REACH, WILL CONTINUE TO MONITOR
--- NOTE | 2017-03-24 15:30 | NUR ---
ROUNDS PT RESTING, EVEN RISE AND FALL OF CHEST NOTED, NO S/S OF ACUTE DISTRESS, PT LAYING TO SIDE, SAFETY MEASURES IN PLACE, CALL LIGHT WITHIN REACH, BED IN LOW POSITION AND LOCKED, WILL FOLLOW UP
[2017-03-24 16:00] VITALS: BP_SYST 98
--- NOTE | 2017-03-24 16:19 | NUR ---
DC planning: I called Twin (pt mom) at [phone]--unable to leave message-phone just rings. I called Anthony Guillen, on face sheet, at [phone] and left message to call us regarding dc plan-ie [facility] evaluation. DH/RN
--- NOTE | 2017-03-24 16:34 | NUR ---
DC planning: I called pt's mom Twin back again at [phone] and she answered. I explained I had s/w Dr. Olson earlier today, and he requested [facility] evaluation. Per Estella, she does not know person named Anthony Guillen or the phone#[phone]-I have contacted Laurie in admitting to immediately remove that name and contact # for patient. No confidential pt information was left on that number when I left message to call me earlier. CHRISTA MCCORD
--- NOTE | 2017-03-24 17:33 | NUR ---
ROUNDS PT AWAKE , TRACKS MOVEMENT WITH EYES, NO S/S OF DISTRESS OR PAIN, PT REPOSITIONED TO OPPOSITE SIDE WITH PILLOW SUPPORT TO BACK AND BILATERAL LOWER EXTREMITIES, SAFETY MEASURES IN PLACE, BED IN LOW POSITION AND LOCKED, WILL FOLLOW UP
--- NOTE | 2017-03-24 18:45 | NUR ---
CLOSING NOTE PT RESTING, EVEN RISE AND FALL OF CHEST NOTED, NO S/S OF ACUTE DISTRESS, PORTACATH IN PLACE AND INFUSING FLUIDS AT ORDERED RATED, GTUBE FEEDING IN PLACE NO RESIDUAL NOTED, FEEDING INFUSING AT ORDERED RATE, PT TOLERATING WELL, SUPRAPUBIC CATHETER IN PLACE AND DRAINING YELLOW URINE TO GRAVITY, HEEL BOOT IN PLACE, ALL NEEDS ATTENDED TO THROUGH OUT SHIFT, SAFETY/ISOLATION/ASPIRATION/SEIZURE PRECAUTIONS MAINTAINED, NO SEIZURE ACTIVITY NOTED DURING SHIFT, BED IN LOW POSITION AND LOCKED, BED ALARM ON, WILL GIVE REPORT TO FOLLOWING SHIFT.
[2017-03-24 20:00] VITALS: BP_SYST 101
--- NOTE | 2017-03-24 20:00 | NUR ---
Initial Notes Patient resting, no s/s of pain or discomfort noted. No SOB noted, on room air. Right chest portacath patent, flushes well, infusing fluids as ordered. No s/s of nausea/vomiting at this time. Patient repositioned in bed. G tube ongoing, no residual noted. Dressing changed on right foot. Shaw catheter in place, output noted. Goal of pain management, GI stability and safety this shift. Will continue to monitor.
[2017-03-24] MEDS: MENTHOL/ZINC OXIDE 113 GM OINT. TP PRN (20:42)
--- NOTE | 2017-03-24 22:15 | NUR ---
Notes Patient sleeping at this time. No s/s of pain noted. No SOB noted. IV site patent, flushes well. Contact isolation maintained. Will continue to monitor.
[2017-03-25] VITALS (7 sets, daily range): BP systolic 100–139
--- NOTE | 2017-03-25 00:15 | NUR ---
Notes Patient resting in bed. Afebrile. IV site patent, flushes well. No s/s of pain or discomfort noted. No SOB noted. Will continue to monitor.
--- NOTE | 2017-03-25 01:17 | NUR ---
PAGED PAGED DANITA JIMENEZ AT [phone] SPOKE WITH BELKIS.
--- NOTE | 2017-03-25 02:20 | NUR ---
Notes Patient sleeping at this time. No s/s of pain noted. No SOB noted. IV site patent, flushes well. Contact isolation maintained. Will continue to monitor.
--- NOTE | 2017-03-25 04:30 | NUR ---
Notes Patient resting in bed. Afebrile. IV site patent, flushes well. No s/s of pain or discomfort noted. No SOB noted. Will continue to monitor.
[2017-03-25] MEDS: metroNIDAZOLE 500 MG TABLET GT SCH ×2 (05:43→13:05)
[2017-03-25] MEDS: KCL 20 mEq in D5NS 1000 mL 1,000 ML IV SCH (05:44)
--- NOTE | 2017-03-25 06:29 | NUR ---
Closing Notes No s/s of pain or discomfort noted. No SOB noted, on room air. Right chest portacath patent, flushes well, infusing fluids as ordered. No s/s of nausea/vomiting at this time. Patient repositioned in bed. G tube ongoing, no residual noted. Goal of pain management, GI stability and safety met. Will continue to monitor.
--- NOTE | 2017-03-25 08:40 | NUR ---
DISCHARGE PLANNING Spoke with [facility] who stated would be in today to evaluate patient. DCP will follow up. Addendum: 03/25/17 at 1411 by Melinda Baer DP Spoke with [facility]es patient accepted [facility], pending bed assignment. MANDY made aware. Ordered Radiology Cd. Placed transportation packet in nurses station. Pending bed assignment. Addendum: 03/25/17 at 1436 by Melinda Baer DP Called patient bernardino Murcia [phone] who is agreeable with discharge plan to [facility] upon bed assignment. Estella requested to be notified time patient will be discharged. MANDY made aware. Ordered Radiology CD. Placed transportation packet in nurses station. Any ambulance can be arranged. Addendum: 03/25/17 at 1640 by Melinda Baer DP Patient assigned to room [facility] Edil MCCORD to report [phone] bed available after 7pm. SURI Bell made aware. Called [facility] [phone] spoke with Emalda arranged BLS transport picking machine operator 7:30-8pm Addendum: 03/25/17 at 1644 by Melinda Baer DP Called and made patient mother Estella aware.
--- NOTE | 2017-03-25 08:40 | NUR ---
Rounds for med pass.
[2017-03-25] MEDS: VANCOMYCIN HCL 1 GM/NS PREMIX 250 ML IV SCH (08:44)
[2017-03-25] MEDS ORDERED: FLUCONAZOLE 200 MG TABLET (DIFLUCAN) PO SCH (09:00)
--- NOTE | 2017-03-25 10:00 | NUR ---
Rounds for medication pass.
[2017-03-25] MEDS: PANTOPRAZOLE SODIUM 40 MG/VIAL (PROTONIX) IVP SCH (10:52)
[2017-03-25] MEDS: CEFEPIME 1 GM in D5W 50 ML IV SCH (10:52)
[2017-03-25] MEDS: levETIRAcetam 500 MG in NS 100 ML IV SCH (10:53)
[2017-03-25] MEDS: MENTHOL/ZINC OXIDE 113 GM OINT. TP SCH ×3 (11:00→17:00)
[2017-03-25] MEDS: MUPIROCIN 2% TOPICAL OINTMENT 22 GM TP SCH (11:01)
--- NOTE | 2017-03-25 12:00 | NUR ---
Attending MD rounds. Patient needs met at this time.
--- NOTE | 2017-03-25 18:32 | NUR ---
Nursing handoff report to [facility] nurse. Patient to transition to room 308C.
--- NOTE | 2017-03-25 20:00 | NUR ---
Initial Notes Pt is A/Ox1, to name, non verbal. Pt unable to make needs known. No acute distress or sob noted. Pt is ready for transfer to [facility], family (Estella Alanis) sister has been informed of transfer to [facility] Room 308-C. Suprapubic catheter noted in place and draining well to gravity. G tube in place, cleansed and new dressing applied. Port a cath to right upper chest noted. Pt is MRSA of the nares. G tube feeding stopped at this time. VSS: Blood pressure: 101/62, 98% on room air, Afebrile 98.0, Heart rate 86. Pt is contracted to upper and lower extremities. Padded side rails for seizure precautions. Safety precautions in place, side rails up x3 with bed in lowest, locked position. All needs met. Call light in reach. Will continue to monitor.
--- NOTE | 2017-03-25 21:06 | NUR ---
Transfer to [place] Full report given to EMT personnel from [facility]. Pt in stable condition with no acute distress noted. VSS. Port a cath in place and suprapubic noted. G tube in place, with new g tube dressing. Pt in stable condition upon transfer. All needs met.
== END 2017-03-25 21:07 | DRG 393 ==
LOC: SED 08:56 → SMU 10:33 → SIC 03-15 15:31 → STU 03-22 11:30 → SMU 03-24 20:30
PROVIDERS: ADMIT Family Medicine; ATTEND Family Medicine
PROC: 0DP6XUZ Removal of Feeding Device from Stomach, External Approach (ICD-10-PCS; 2017-03-17)
PROC: 0DH68UZ Insertion of Feeding Device into Stomach, Via Natural or Artificial Opening Endoscopic (ICD-10-PCS; 2017-03-17)
PROC: 0DHA8UZ Insertion of Feeding Device into Jejunum, Via Natural or Artificial Opening Endoscopic (ICD-10-PCS; principal; 2017-03-18 16:00)
DX: K94.13 Enterostomy malfunction (principal); A41.9 Sepsis, unspecified organism; G93.40 Encephalopathy, unspecified; R65.21 Severe sepsis with septic shock; J69.0 Pneumonitis due to inhalation of food and vomit; L03.311 Cellulitis of abdominal wall; K31.6 Fistula of stomach and duodenum; K94.22 Gastrostomy infection; G40.909 Epilepsy, unspecified, not intractable, without status epilepticus; F03.90 Unspecified dementia, unspecified severity, without behavioral disturbance, psychotic disturbance, mood disturbance, and anxiety; Y83.3 Surgical operation with formation of external stoma as the cause of abnormal reaction of the patient, or of later complication, without mention of misadventure at the time of the procedure; Z22.322 Carrier or suspected carrier of Methicillin resistant Staphylococcus aureus; Z87.820 Personal history of traumatic brain injury; Z79.899 Other long term (current) drug therapy; Z87.440 Personal history of urinary (tract) infections
CPT/HCPCS: 36415; 43760; 71010; 74000-TC; 74240-TC; 80048; 80053; 80202-TC; 81000-TC; 83605; 83735-TC; 84100-TC; 85007; 85025; 85027; 85610-TC; 85730-TC; 87040-TC; 87081; 87086; 87230-TC; 96365; 99285; A4371; A4421; C9113; J0692; J1953; J2175; J2250; J2270; J2543; J3370; J3490; J7030; J7060; L8699; P9046; Q9963

== ENCOUNTER 2017-05-06 12:42 | Inpatient (IN) | payer OTHER ==
[~2017-05-06] VITALS: Ht 160 cm; Wt 64.0 kg
[2017-05-06 12:58] VITALS: BP_SYST 106
[2017-05-06] MEDS ORDERED: NACL 0.9% 1,000 ML IV ONE (13:19)
[2017-05-06 13:57] LABS: CALCIUM 9.1 mg/dL (8.4-11.0); CREATININE 0.38 mg/dL (0.55-1.30); POTASSIUM 3.6 mmol/L (3.5-5.1)
[2017-05-06 13:59] LABS: INR 0.9 (0.8-1.2); PROTHROMBIN TIME 10.1 SECS (9.5-12.5)
[2017-05-06 14:01] LABS: ALBUMIN 3.5 g/dL (3.4-4.8); TOTAL BILIRUBIN 0.3 mg/dL (0.0-1.0); TOTAL PROTEIN, SERUM 8.6 g/dL (6.4-8.3)
[2017-05-06 14:09] LABS: BASOPHILS # (AUTO) 0.3 K/uL (0.0-0.2); BASOPHILS % (AUTO) 2.2 % (0.0-2.0); EOSINOPHILS # (AUTO) 0.2 K/uL (0.0-0.4); EOSINOPHILS % (AUTO) 1.4 % (0.0-4.0); HEMATOCRIT 43.3 % (36-48); HEMOGLOBIN 14.3 g/dL (12.0-16.0); LYMPHOCYTES # (AUTO) 2.5 K/uL (1.0-5.5); LYMPHOCYTES % (AUTO) 21.5 % (20.5-51.5); MEAN CORPUSCULAR HEMOGLOBIN 30 pg (27-31); MEAN CORPUSCULAR HGB CONC 33 % (32-36); MEAN CORPUSCULAR VOLUME 90 fL (79.0-98.0); MONOCYTES # (AUTO) 0.5 K/uL (0.0-1.0); MONOCYTES % (AUTO) 4.7 % (1.7-9.3); NEUTROPHILS % (AUTO) 70.2 % (40.0-70.0); PLATELET COUNT (AUTO) 290 K/uL (130-430); RED CELL DISTRIBUTION WIDTH 13.5 % (9.0-15.0); WHITE BLOOD COUNT (AUTO) 11.5 K/uL (4.8-10.8)
[2017-05-06 15:32] LABS: BILIRUBIN,URINE NEGATIVE (NEGATIVE); COLOR,URINE YELLOW (YELLOW); GLUCOSE,URINE NEGATIVE (NEGATIVE); KETONES,URINE NEGATIVE (NEGATIVE); LEUKOCYTE ESTERASE ,URINE 3+ (NEGATIVE); NITRITE, URINE POSITIVE (NEGATIVE); PH,URINE 6.5 (5.0-8.0); PROTEIN URINE NEGATIVE (NEGATIVE); UROBILINOGEN,URINE 0.2 (0.2-1.0)
[2017-05-06 15:37] VITALS: BP_SYST 99
[2017-05-06 15:46] LABS: BLOOD, URINE TRACE (NEGATIVE); CLARITY/URINE SLIGHTLY CLOUDY (CLEAR)
[2017-05-06 16:10] LABS: BACTERIA,URINE MODERATE /HPF (None Seen); WBC,URINE 20-50 /HPF (0-3)
[2017-05-06 16:11] LABS: MUCUS,URINE None Seen /LPF (None Seen); URINE AMORPHOUS URATE 2+ /HPF (None Seen)
[2017-05-06 16:12] LABS: CALCIUM OXALATE CRYSTALS,UR 0-10 /HPF (None Seen)
[2017-05-06] MEDS: D5LR 1,000 ML IV SCH (16:31)
[2017-05-06 16:37] VITALS: BP_SYST 101
[2017-05-06 19:40] VITALS: BP_SYST 105
[2017-05-06] MEDS ORDERED: LevALBUTEROL HCL 1.25 MG/0.5 ML *CONC.* VIAL.NEB (XOPENEX CONC.) INH PRN (20:00)
[2017-05-06] MEDS ORDERED: LORazepam 2 MG/ML VIAL IVP PRN (20:00)
[2017-05-06] MEDS ORDERED: PANTOPRAZOLE SODIUM 40 MG/VIAL (PROTONIX) IVP ONE (20:00)
[2017-05-06] MEDS ORDERED: ONDANSETRON HCL 4 MG/2 ML VIAL IVP PRN (20:00)
[2017-05-06] MEDS ORDERED: CEFEPIME 1 GM/VIAL (MAXIPIME) ONE (20:51)
[2017-05-06] MEDS: CEFEPIME 1 GM in D5W 50 ML IV SCH (21:00)
[2017-05-06] MEDS: levETIRAcetam 500 MG in NS 100 ML IV SCH ×2 (21:00→21:08)
[2017-05-06 22:38] VITALS: BP_SYST 105
[2017-05-06] MEDS: LevALBUTEROL HCL 1.25 MG/0.5 ML *CONC.* VIAL.NEB (XOPENEX CONC.) INH SCH (23:42)
[2017-05-07] VITALS: BP_SYST 101
[2017-05-07 04:34] VITALS: BP_SYST 99
[2017-05-07 07:19] LABS: BASOPHILS # (AUTO) 0.1 K/uL (0.0-0.2); EOSINOPHILS # (AUTO) 0.1 K/uL (0.0-0.4); EOSINOPHILS % (AUTO) 1.6 % (0.0-4.0); HEMATOCRIT 35.8 % (36-48); LYMPHOCYTES # (AUTO) 1.4 K/uL (1.0-5.5); LYMPHOCYTES % (AUTO) 17.2 % (20.5-51.5); MEAN CORPUSCULAR HEMOGLOBIN 30 pg (27-31); MEAN CORPUSCULAR HGB CONC 34 % (32-36); MEAN CORPUSCULAR VOLUME 90 fL (79.0-98.0); MONOCYTES # (AUTO) 0.6 K/uL (0.0-1.0); MONOCYTES % (AUTO) 7.1 % (1.7-9.3); NEUTROPHILS % (AUTO) 73.1 % (40.0-70.0); PLATELET COUNT (AUTO) 241 K/uL (130-430); RED BLOOD CELL COUNT(AUTO) 3.96 MIL/uL (4.2-6.2); RED CELL DISTRIBUTION WIDTH 13.5 % (9.0-15.0); WHITE BLOOD COUNT (AUTO) 8.2 K/uL (4.8-10.8)
[2017-05-07] MEDS: LevALBUTEROL HCL 1.25 MG/0.5 ML *CONC.* VIAL.NEB (XOPENEX CONC.) INH SCH ×3 (07:27→23:25)
[2017-05-07 07:28] LABS: PROTHROMBIN TIME 10.7 SECS (9.5-12.5)
[2017-05-07] MEDS: D5LR 1,000 ML IV SCH (07:42)
[2017-05-07 07:56] LABS: CALCIUM 8.3 mg/dL (8.4-11.0); CREATININE 0.34 mg/dL (0.55-1.30); POTASSIUM 3.7 mmol/L (3.5-5.1)
[2017-05-07 08:00] VITALS: BP_SYST 105
[2017-05-07] MEDS: CEFEPIME 1 GM in D5W 50 ML IV SCH ×2 (08:28→21:31)
[2017-05-07] MEDS: PANTOPRAZOLE SODIUM 40 MG/VIAL (PROTONIX) IVP SCH (09:04)
[2017-05-07] MEDS: levETIRAcetam 500 MG in NS 100 ML IV SCH ×2 (09:04→22:29)
[2017-05-07] MEDS ORDERED: GASTROGRAFIN 120 ML ONE (11:38)
[2017-05-07 12:08] VITALS: BP_SYST 95
[2017-05-07 16:44] VITALS: BP_SYST 108
[2017-05-07 20:00] VITALS: BP_SYST 99
[2017-05-08 00:34] VITALS: BP_SYST 107
[2017-05-08] MEDS: D5LR 1,000 ML IV SCH ×2 (02:07→17:51)
[2017-05-08 04:20] VITALS: BP_SYST 114
[2017-05-08 06:39] LABS: BASOPHILS % (AUTO) 0.4 % (0.0-2.0); EOSINOPHILS # (AUTO) 0.2 K/uL (0.0-0.4); EOSINOPHILS % (AUTO) 2.9 % (0.0-4.0); HEMATOCRIT 33.1 % (36-48); HEMOGLOBIN 11.5 g/dL (12.0-16.0); LYMPHOCYTES # (AUTO) 1.4 K/uL (1.0-5.5); MEAN CORPUSCULAR HEMOGLOBIN 31 pg (27-31); MEAN CORPUSCULAR HGB CONC 35 % (32-36); MEAN CORPUSCULAR VOLUME 90 fL (79.0-98.0); MONOCYTES # (AUTO) 0.4 K/uL (0.0-1.0); MONOCYTES % (AUTO) 7.2 % (1.7-9.3); NEUTROPHILS # (AUTO) 3.8 K/uL (1.8-7.7); NEUTROPHILS % (AUTO) 65.5 % (40.0-70.0); PLATELET COUNT (AUTO) 226 K/uL (130-430); RED CELL DISTRIBUTION WIDTH 13.3 % (9.0-15.0); WHITE BLOOD COUNT (AUTO) 5.8 K/uL (4.8-10.8)
[2017-05-08 07:00] LABS: CREATININE 0.36 mg/dL (0.55-1.30)
[2017-05-08 07:15] LABS: POTASSIUM 2.8 mmol/L (3.5-5.1)
[2017-05-08] MEDS: LevALBUTEROL HCL 1.25 MG/0.5 ML *CONC.* VIAL.NEB (XOPENEX CONC.) INH SCH ×3 (07:37→23:45)
[2017-05-08 08:00] VITALS: BP_SYST 107
[2017-05-08] MEDS: PANTOPRAZOLE SODIUM 40 MG/VIAL (PROTONIX) IVP SCH (09:29)
[2017-05-08] MEDS: CEFEPIME 1 GM in D5W 50 ML IV SCH ×2 (09:29→22:05)
[2017-05-08] MEDS ORDERED: POTASSIUM CHLORIDE 20 MEQ TAB.PRT.SR PO ONE (09:30)
[2017-05-08] MEDS ORDERED: MINERAL OIL 133 ML ENEMA RC ONE (09:45)
[2017-05-08] MEDS: levETIRAcetam 500 MG in NS 100 ML IV SCH ×2 (10:22→20:35)
[2017-05-08] MEDS: MINERAL OIL 30 ML UDC GT SCH ×2 (12:06→17:50)
[2017-05-08 13:10] VITALS: BP_SYST 97
[2017-05-08 16:49] VITALS: BP_SYST 104
[2017-05-08 19:50] VITALS: BP_SYST 115
[2017-05-08] MEDS ORDERED: METOCLOPRAMIDE HCL 10 MG/2 ML VIAL IVP PRN (21:30)
[2017-05-09] VITALS (7 sets, daily range): BP systolic 97–125
[2017-05-09] MEDS: MINERAL OIL 30 ML UDC GT SCH ×4 (05:50→17:49)
[2017-05-09 06:25] LABS: BASOPHILS % (AUTO) 0.8 % (0.0-2.0); EOSINOPHILS # (AUTO) 0.1 K/uL (0.0-0.4); EOSINOPHILS % (AUTO) 2.3 % (0.0-4.0); HEMATOCRIT 35.7 % (36-48); HEMOGLOBIN 12.1 g/dL (12.0-16.0); LYMPHOCYTES # (AUTO) 1.7 K/uL (1.0-5.5); MEAN CORPUSCULAR HEMOGLOBIN 31 pg (27-31); MEAN CORPUSCULAR HGB CONC 34 % (32-36); MEAN CORPUSCULAR VOLUME 90 fL (79.0-98.0); MONOCYTES # (AUTO) 0.4 K/uL (0.0-1.0); MONOCYTES % (AUTO) 6.9 % (1.7-9.3); NEUTROPHILS # (AUTO) 3.6 K/uL (1.8-7.7); PLATELET COUNT (AUTO) 226 K/uL (130-430); RED BLOOD CELL COUNT(AUTO) 3.95 MIL/uL (4.2-6.2); RED CELL DISTRIBUTION WIDTH 13.4 % (9.0-15.0); WHITE BLOOD COUNT (AUTO) 5.9 K/uL (4.8-10.8)
[2017-05-09 07:09] LABS: CALCIUM 8.4 mg/dL (8.4-11.0); CREATININE 0.28 mg/dL (0.55-1.30); POTASSIUM 3.4 mmol/L (3.5-5.1)
[2017-05-09] MEDS: D5LR 1,000 ML IV SCH ×2 (07:55→22:28)
[2017-05-09] MEDS: CEFEPIME 1 GM in D5W 50 ML IV SCH ×2 (08:00→22:28)
[2017-05-09] MEDS: LevALBUTEROL HCL 1.25 MG/0.5 ML *CONC.* VIAL.NEB (XOPENEX CONC.) INH SCH ×3 (08:31→23:29)
[2017-05-09] MEDS: levETIRAcetam 500 MG in NS 100 ML IV SCH ×2 (09:25→21:45)
[2017-05-09] MEDS: PANTOPRAZOLE SODIUM 40 MG/VIAL (PROTONIX) IVP SCH (09:25)
[2017-05-09] MEDS ORDERED: POTASSIUM CHLORIDE 20 MEQ/PKT PACKET GT ONE (17:45)
[2017-05-10 01:17] VITALS: BP_SYST 114
[2017-05-10] MEDS: MINERAL OIL 30 ML UDC GT SCH ×3 (06:00→12:00)
[2017-05-10 06:06] VITALS: BP_SYST 131
[2017-05-10] MEDS: LevALBUTEROL HCL 1.25 MG/0.5 ML *CONC.* VIAL.NEB (XOPENEX CONC.) INH SCH ×3 (07:59→22:48)
[2017-05-10 08:00] VITALS: BP_SYST 127
[2017-05-10] MEDS: CEFEPIME 1 GM in D5W 50 ML IV SCH ×2 (08:28→21:36)
[2017-05-10] MEDS: PANTOPRAZOLE SODIUM 40 MG/VIAL (PROTONIX) IVP SCH (09:16)
[2017-05-10] MEDS: levETIRAcetam 500 MG in NS 100 ML IV SCH ×2 (09:16→21:36)
[2017-05-10 12:26] VITALS: BP_SYST 114
[2017-05-10] MEDS: D5LR 1,000 ML IV SCH (14:43)
[2017-05-10 16:44] VITALS: BP_SYST 119
[2017-05-10] MEDS ORDERED: MORPHINE 2 MG/ML INJ. SYRINGE IVP PRN (17:15)
[2017-05-10] MEDS ORDERED: ENOXAPARIN SODIUM 30 MG/0.3 ML SYRINGE SUBCUT SCH (21:00)
[2017-05-10 21:30] VITALS: BP_SYST 122
[2017-05-11] VITALS: BP_SYST 104
[2017-05-11 04:31] VITALS: BP_SYST 104
[2017-05-11] MEDS: D5LR 1,000 ML IV SCH (05:51)
[2017-05-11 07:19] LABS: BASOPHILS % (AUTO) 0.6 % (0.0-2.0); EOSINOPHILS # (AUTO) 0.2 K/uL (0.0-0.4); EOSINOPHILS % (AUTO) 2.9 % (0.0-4.0); HEMATOCRIT 36.3 % (36-48); LYMPHOCYTES # (AUTO) 2.1 K/uL (1.0-5.5); LYMPHOCYTES % (AUTO) 33.4 % (20.5-51.5); MEAN CORPUSCULAR HEMOGLOBIN 30 pg (27-31); MEAN CORPUSCULAR HGB CONC 33 % (32-36); MEAN CORPUSCULAR VOLUME 91 fL (79.0-98.0); MONOCYTES # (AUTO) 0.6 K/uL (0.0-1.0); NEUTROPHILS # (AUTO) 3.4 K/uL (1.8-7.7); NEUTROPHILS % (AUTO) 54.1 % (40.0-70.0); PLATELET COUNT (AUTO) 242 K/uL (130-430); RED BLOOD CELL COUNT(AUTO) 3.98 MIL/uL (4.2-6.2); RED CELL DISTRIBUTION WIDTH 13.7 % (9.0-15.0); WHITE BLOOD COUNT (AUTO) 6.3 K/uL (4.8-10.8)
[2017-05-11 07:36] LABS: CREATININE 0.31 mg/dL (0.55-1.30); POTASSIUM 3.8 mmol/L (3.5-5.1)
[2017-05-11] MEDS: LevALBUTEROL HCL 1.25 MG/0.5 ML *CONC.* VIAL.NEB (XOPENEX CONC.) INH SCH (07:52)
[2017-05-11] MEDS: PANTOPRAZOLE SODIUM 40 MG/VIAL (PROTONIX) IVP SCH (08:13)
[2017-05-11] MEDS: CEFEPIME 1 GM in D5W 50 ML IV SCH (08:16)
[2017-05-11] MEDS: levETIRAcetam 500 MG in NS 100 ML IV SCH (08:16)
[2017-05-11 08:18] VITALS: BP_SYST 107
[2017-05-11 11:36] VITALS: BP_SYST 124
[2017-05-11 14:37] VITALS: BP_SYST 116
[2017-05-11 14:40] VITALS: BP_SYST 104
[2017-05-11] MEDS ORDERED: HEPARIN SODIUM,PORCINE 5000 UNITS/ML VIAL ONE (15:06)
== END 2017-05-11 15:28 | disposition home health service (06) | DRG 393 ==
LOC: SED 12:42 → SMU 13:49
PROVIDERS: ADMIT Internal Medicine; ATTEND Family Medicine
PROC: 0D2DXUZ Change Feeding Device in Lower Intestinal Tract, External Approach (ICD-10-PCS; principal; 2017-05-07 13:00)
DX: K94.13 Enterostomy malfunction (principal); G82.50 Quadriplegia, unspecified; K94.23 Gastrostomy malfunction; N39.0 Urinary tract infection, site not specified; G40.909 Epilepsy, unspecified, not intractable, without status epilepticus; Y83.8 Other surgical procedures as the cause of abnormal reaction of the patient, or of later complication, without mention of misadventure at the time of the procedure; R13.10 Dysphagia, unspecified; Z87.440 Personal history of urinary (tract) infections; Z87.820 Personal history of traumatic brain injury; Z79.899 Other long term (current) drug therapy; Y92.89 Other specified places as the place of occurrence of the external cause; K56.41 Fecal impaction
CPT/HCPCS: 36415; 43246; 74000-TC; 80048; 80053; 81000-TC; 83690-TC; 85025; 85610-TC; 85730-TC; 87081; 87086; 94640; 94760; 99285; A6209; C1769; C9113; J0692; J1644; J1650; J1953; J7030; J7060; J7120; Q9963

== ENCOUNTER 2017-05-20 09:18 | Inpatient (IN) | payer OTHER ==
[~2017-05-20] VITALS: Ht 160 cm; Wt 62.1 kg
[2017-05-20 09:18] VITALS: BP_SYST 101
[2017-05-20 10:13] LABS: BASOPHILS # (AUTO) 0.2 K/uL (0.0-0.2); BASOPHILS % (AUTO) 2.2 % (0.0-2.0); EOSINOPHILS # (AUTO) 0.1 K/uL (0.0-0.4); EOSINOPHILS % (AUTO) 1.4 % (0.0-4.0); HEMATOCRIT 39.4 % (36-48); LYMPHOCYTES # (AUTO) 2.5 K/uL (1.0-5.5); LYMPHOCYTES % (AUTO) 27.5 % (20.5-51.5); MEAN CORPUSCULAR HEMOGLOBIN 30 pg (27-31); MEAN CORPUSCULAR HGB CONC 33 % (32-36); MEAN CORPUSCULAR VOLUME 90 fL (79.0-98.0); MONOCYTES # (AUTO) 0.6 K/uL (0.0-1.0); NEUTROPHILS # (AUTO) 5.7 K/uL (1.8-7.7); NEUTROPHILS % (AUTO) 61.9 % (40.0-70.0); PLATELET COUNT (AUTO) 233 K/uL (130-430); RED BLOOD CELL COUNT(AUTO) 4.39 MIL/uL (4.2-6.2); RED CELL DISTRIBUTION WIDTH 13.8 % (9.0-15.0); WHITE BLOOD COUNT (AUTO) 9.1 K/uL (4.8-10.8)
[2017-05-20 10:20] LABS: CALCIUM 8.9 mg/dL (8.4-11.0); CREATININE 0.31 mg/dL (0.55-1.30); POTASSIUM 3.1 mmol/L (3.5-5.1)
[2017-05-20 10:25] LABS: ALBUMIN 3.2 g/dL (3.4-4.8); TOTAL BILIRUBIN 0.3 mg/dL (0.0-1.0)
[2017-05-20] MEDS ORDERED: D5/0.45 NS 1,000 ML IV SCH (12:00)
[2017-05-20 12:10] VITALS: BP_SYST 107
[2017-05-20 16:00] VITALS: BP_SYST 101
[2017-05-20 20:40] LABS: BILIRUBIN,URINE NEGATIVE (NEGATIVE); CLARITY/URINE SL CLOUDY (CLEAR); COLOR,URINE YELLOW (YELLOW); GLUCOSE,URINE NEGATIVE (NEGATIVE); KETONES,URINE NEGATIVE (NEGATIVE); LEUKOCYTE ESTERASE ,URINE 3+ (NEGATIVE); NITRITE, URINE POSITIVE (NEGATIVE); PROTEIN URINE NEGATIVE (NEGATIVE); UROBILINOGEN,URINE 0.2 (0.2-1.0)
[2017-05-20 20:51] LABS: BLOOD, URINE TRACE (NEGATIVE)
[2017-05-20 21:00] LABS: BACTERIA,URINE MANY /HPF (None Seen); WBC,URINE 20-50 /HPF (0-3)
[2017-05-20 21:01] LABS: MUCUS,URINE None Seen /LPF (None Seen); URINE AMORPHOUS PHOSPHATES 3+ /HPF (None Seen)
[2017-05-20] MEDS ORDERED: LORazepam 2 MG/ML VIAL IM PRN (21:30)
[2017-05-20] MEDS ORDERED: ONDANSETRON HCL 4 MG/2 ML VIAL IVP PRN (21:30)
[2017-05-20] MEDS ORDERED: PANTOPRAZOLE SODIUM 40 MG/VIAL (PROTONIX) IVP ONE (21:45)
[2017-05-20] MEDS ORDERED: levETIRAcetam 500 MG in NS 100 ML IV ONE (21:45)
[2017-05-20] MEDS: KCL 20 mEq in D5NS 1000 mL 1,000 ML IV SCH (22:54)
[2017-05-20 23:53] VITALS: BP_SYST 105
[2017-05-21 04:12] VITALS: BP_SYST 103
[2017-05-21 06:52] LABS: BASOPHILS # (AUTO) 0.1 K/uL (0.0-0.2); BASOPHILS % (AUTO) 0.5 % (0.0-2.0); EOSINOPHILS # (AUTO) 0.1 K/uL (0.0-0.4); EOSINOPHILS % (AUTO) 1.1 % (0.0-4.0); HEMATOCRIT 36.1 % (36-48); HEMOGLOBIN 12.1 g/dL (12.0-16.0); LYMPHOCYTES # (AUTO) 1.8 K/uL (1.0-5.5); LYMPHOCYTES % (AUTO) 16.3 % (20.5-51.5); MEAN CORPUSCULAR HEMOGLOBIN 31 pg (27-31); MEAN CORPUSCULAR HGB CONC 34 % (32-36); MEAN CORPUSCULAR VOLUME 91 fL (79.0-98.0); MONOCYTES # (AUTO) 0.9 K/uL (0.0-1.0); MONOCYTES % (AUTO) 7.9 % (1.7-9.3); NEUTROPHILS # (AUTO) 8.3 K/uL (1.8-7.7); NEUTROPHILS % (AUTO) 74.2 % (40.0-70.0); PLATELET COUNT (AUTO) 209 K/uL (130-430); RED BLOOD CELL COUNT(AUTO) 3.97 MIL/uL (4.2-6.2); RED CELL DISTRIBUTION WIDTH 13.8 % (9.0-15.0); WHITE BLOOD COUNT (AUTO) 11.2 K/uL (4.8-10.8)
[2017-05-21 07:03] LABS: CALCIUM 8.4 mg/dL (8.4-11.0); CREATININE 0.27 mg/dL (0.55-1.30); POTASSIUM 3.2 mmol/L (3.5-5.1)
[2017-05-21 08:49] VITALS: BP_SYST 103
[2017-05-21] MEDS: KCL 20 mEq in D5NS 1000 mL 1,000 ML IV SCH ×2 (09:37→17:45)
[2017-05-21] MEDS: levETIRAcetam 500 MG in NS 100 ML IV SCH ×2 (09:38→21:18)
[2017-05-21] MEDS: PANTOPRAZOLE SODIUM 40 MG/VIAL (PROTONIX) IVP SCH ×2 (09:38→21:17)
[2017-05-21 11:27] VITALS: BP_SYST 104
[2017-05-21] MEDS ORDERED: MIDAZOLAM HCL 5 MG/5 ML VIAL ONE (12:37)
[2017-05-21] MEDS ORDERED: MEPERIDINE HCL/PF 100 MG/ML AMP ONE (12:37)
[2017-05-21 13:28] VITALS: BP_SYST 99
[2017-05-21] MEDS ORDERED: GASTROGRAFIN 120 ML ONE (13:44)
[2017-05-21] MEDS: ENOXAPARIN SODIUM 40 MG/0.4 ML SYRINGE SUBCUT SCH (14:38)
[2017-05-21 15:31] VITALS: BP_SYST 93
[2017-05-21] MEDS ORDERED: MENTHOL/ZINC OXIDE 113 GM OINT. TP PRN (18:45)
[2017-05-21 20:00] VITALS: BP_SYST 118
[2017-05-22] VITALS (7 sets, daily range): BP systolic 92–147
[2017-05-22] MEDS: KCL 20 mEq in D5NS 1000 mL 1,000 ML IV SCH ×2 (02:33→12:50)
[2017-05-22] MEDS: PANTOPRAZOLE SODIUM 40 MG/VIAL (PROTONIX) IVP SCH ×2 (09:53→21:55)
[2017-05-22] MEDS: ENOXAPARIN SODIUM 40 MG/0.4 ML SYRINGE SUBCUT SCH (09:54)
[2017-05-22] MEDS: levETIRAcetam 500 MG in NS 100 ML IV SCH ×2 (09:59→22:27)
[2017-05-23] VITALS (7 sets, daily range): BP systolic 94–141
[2017-05-23] MEDS: KCL 20 mEq in D5NS 1000 mL 1,000 ML IV SCH ×3 (03:05→18:03)
[2017-05-23] MEDS: PANTOPRAZOLE SODIUM 40 MG/VIAL (PROTONIX) IVP SCH ×2 (09:55→20:20)
[2017-05-23] MEDS: ENOXAPARIN SODIUM 40 MG/0.4 ML SYRINGE SUBCUT SCH (09:57)
[2017-05-23] MEDS: levETIRAcetam 500 MG in NS 100 ML IV SCH ×2 (10:15→20:20)
[2017-05-24 00:29] VITALS: BP_SYST 124
[2017-05-24 03:16] VITALS: BP_SYST 128
[2017-05-24] MEDS: KCL 20 mEq in D5NS 1000 mL 1,000 ML IV SCH ×3 (03:48→23:13)
[2017-05-24 06:22] LABS: BASOPHILS % (AUTO) 0.4 % (0.0-2.0); EOSINOPHILS # (AUTO) 0.1 K/uL (0.0-0.4); EOSINOPHILS % (AUTO) 0.7 % (0.0-4.0); HEMATOCRIT 34.8 % (36-48); HEMOGLOBIN 11.9 g/dL (12.0-16.0); LYMPHOCYTES # (AUTO) 2.7 K/uL (1.0-5.5); LYMPHOCYTES % (AUTO) 25.3 % (20.5-51.5); MEAN CORPUSCULAR HEMOGLOBIN 31 pg (27-31); MEAN CORPUSCULAR HGB CONC 34 % (32-36); MEAN CORPUSCULAR VOLUME 90 fL (79.0-98.0); MONOCYTES # (AUTO) 0.9 K/uL (0.0-1.0); NEUTROPHILS % (AUTO) 65.6 % (40.0-70.0); PLATELET COUNT (AUTO) 248 K/uL (130-430); RED BLOOD CELL COUNT(AUTO) 3.88 MIL/uL (4.2-6.2); RED CELL DISTRIBUTION WIDTH 13.3 % (9.0-15.0); WHITE BLOOD COUNT (AUTO) 10.7 K/uL (4.8-10.8)
[2017-05-24 06:29] LABS: PROTHROMBIN TIME 10.9 SECS (9.5-12.5)
[2017-05-24 06:47] LABS: CALCIUM 8.6 mg/dL (8.4-11.0); CREATININE 0.33 mg/dL (0.55-1.30); POTASSIUM 3.8 mmol/L (3.5-5.1)
[2017-05-24 08:00] VITALS: BP_SYST 119
[2017-05-24] MEDS: levETIRAcetam 500 MG in NS 100 ML IV SCH ×2 (08:45→23:14)
[2017-05-24] MEDS: PANTOPRAZOLE SODIUM 40 MG/VIAL (PROTONIX) IVP SCH ×2 (08:50→23:14)
[2017-05-24] MEDS: ENOXAPARIN SODIUM 40 MG/0.4 ML SYRINGE SUBCUT SCH (09:00)
[2017-05-24 12:45] VITALS: BP_SYST 101
[2017-05-24] MEDS ORDERED: GASTROGRAFIN 120 ML ONE (14:13)
[2017-05-24 16:26] VITALS: BP_SYST 122
[2017-05-24 23:33] VITALS: BP_SYST 130
[2017-05-25 04:17] VITALS: BP_SYST 108
[2017-05-25 08:03] VITALS: BP_SYST 103
[2017-05-25] MEDS: ENOXAPARIN SODIUM 40 MG/0.4 ML SYRINGE SUBCUT SCH (09:02)
[2017-05-25] MEDS: PANTOPRAZOLE SODIUM 40 MG/VIAL (PROTONIX) IVP SCH ×2 (09:02→20:16)
[2017-05-25] MEDS: levETIRAcetam 500 MG in NS 100 ML IV SCH ×2 (09:03→20:16)
[2017-05-25 17:06] VITALS: BP_SYST 142
[2017-05-25] MEDS: KCL 20 mEq in D5NS 1000 mL 1,000 ML IV SCH ×2 (18:40→20:16)
[2017-05-25 20:00] VITALS: BP_SYST 125
[2017-05-25 23:35] VITALS: BP_SYST 116
[2017-05-26] MEDS: KCL 20 mEq in D5NS 1000 mL 1,000 ML IV SCH ×2 (04:23→16:13)
[2017-05-26 05:02] VITALS: BP_SYST 127
[2017-05-26] MEDS: ENOXAPARIN SODIUM 40 MG/0.4 ML SYRINGE SUBCUT SCH (07:57)
[2017-05-26] MEDS: levETIRAcetam 500 MG in NS 100 ML IV SCH (07:57)
[2017-05-26] MEDS: PANTOPRAZOLE SODIUM 40 MG/VIAL (PROTONIX) IVP SCH ×2 (07:57→20:56)
[2017-05-26 12:04] VITALS: BP_SYST 125
[2017-05-26 18:22] VITALS: BP_SYST 116
[2017-05-26] MEDS: LORazepam 2 MG/ML VIAL IVP PRN (19:14)
[2017-05-26 20:15] VITALS: BP_SYST 106
[2017-05-26] MEDS ORDERED: levETIRAcetam 500 MG TABLET PO SCH (21:00)
[2017-05-27] MEDS: KCL 20 mEq in D5NS 1000 mL 1,000 ML IV SCH ×3 (00:41→21:14)
[2017-05-27 00:57] VITALS: BP_SYST 122
[2017-05-27 03:51] VITALS: BP_SYST 128
[2017-05-27 08:23] LABS: BASOPHILS % (AUTO) 0.5 % (0.0-2.0); EOSINOPHILS % (AUTO) 0.6 % (0.0-4.0); HEMATOCRIT 31.6 % (36-48); HEMOGLOBIN 10.5 g/dL (12.0-16.0); LYMPHOCYTES # (AUTO) 1.6 K/uL (1.0-5.5); LYMPHOCYTES % (AUTO) 21.1 % (20.5-51.5); MEAN CORPUSCULAR HEMOGLOBIN 30 pg (27-31); MEAN CORPUSCULAR HGB CONC 33 % (32-36); MEAN CORPUSCULAR VOLUME 90 fL (79.0-98.0); MONOCYTES # (AUTO) 0.6 K/uL (0.0-1.0); MONOCYTES % (AUTO) 8.1 % (1.7-9.3); NEUTROPHILS # (AUTO) 5.5 K/uL (1.8-7.7); NEUTROPHILS % (AUTO) 69.7 % (40.0-70.0); PLATELET COUNT (AUTO) 274 K/uL (130-430); RED BLOOD CELL COUNT(AUTO) 3.53 MIL/uL (4.2-6.2); RED CELL DISTRIBUTION WIDTH 13.4 % (9.0-15.0); WHITE BLOOD COUNT (AUTO) 7.7 K/uL (4.8-10.8)
[2017-05-27 08:24] LABS: CALCIUM 8.2 mg/dL (8.4-11.0); CREATININE 0.28 mg/dL (0.55-1.30); PHOSPHORUS 2.6 mg/dL (2.7-4.5); POTASSIUM 3.3 mmol/L (3.5-5.1)
[2017-05-27 08:49] VITALS: BP_SYST 105
[2017-05-27] MEDS: ENOXAPARIN SODIUM 40 MG/0.4 ML SYRINGE SUBCUT SCH (08:59)
[2017-05-27] MEDS: PANTOPRAZOLE SODIUM 40 MG/VIAL (PROTONIX) IVP SCH ×2 (08:59→21:14)
[2017-05-27] MEDS: levETIRAcetam 500 MG TABLET GT SCH ×2 (09:00→21:13)
[2017-05-27 13:00] VITALS: BP_SYST 110
[2017-05-27 16:00] VITALS: BP_SYST 101
[2017-05-27] MEDS: LORazepam 2 MG/ML VIAL IVP PRN ×2 (18:37→23:58)
[2017-05-27 20:00] VITALS: BP_SYST 113
[2017-05-28 00:29] VITALS: BP_SYST 113
[2017-05-28 05:10] VITALS: BP_SYST 112
[2017-05-28 08:13] VITALS: BP_SYST 108
[2017-05-28] MEDS: KCL 20 mEq in D5NS 1000 mL 1,000 ML IV SCH ×3 (08:56→22:03)
[2017-05-28] MEDS: PANTOPRAZOLE SODIUM 40 MG/VIAL (PROTONIX) IVP SCH ×2 (08:56→22:02)
[2017-05-28] MEDS: ENOXAPARIN SODIUM 40 MG/0.4 ML SYRINGE SUBCUT SCH (08:56)
[2017-05-28] MEDS: levETIRAcetam 500 MG TABLET GT SCH ×2 (08:56→22:02)
[2017-05-28 12:37] VITALS: BP_SYST 120
[2017-05-28 16:51] VITALS: BP_SYST 111
[2017-05-28 19:23] VITALS: BP_SYST 123
[2017-05-29 00:47] VITALS: BP_SYST 122
[2017-05-29 04:00] VITALS: BP_SYST 118
[2017-05-29] MEDS: KCL 20 mEq in D5NS 1000 mL 1,000 ML IV SCH ×2 (07:46→18:27)
[2017-05-29 07:50] VITALS: BP_SYST 120
[2017-05-29] MEDS: PANTOPRAZOLE SODIUM 40 MG/VIAL (PROTONIX) IVP SCH ×2 (08:29→21:12)
[2017-05-29] MEDS: levETIRAcetam 500 MG TABLET GT SCH ×2 (08:29→21:11)
[2017-05-29] MEDS: ENOXAPARIN SODIUM 40 MG/0.4 ML SYRINGE SUBCUT SCH (08:29)
[2017-05-29 10:31] LABS: EOSINOPHILS # (AUTO) 0.1 K/uL (0.0-0.4); EOSINOPHILS % (AUTO) 1.4 % (0.0-4.0); HEMOGLOBIN 11.9 g/dL (12.0-16.0); LYMPHOCYTES # (AUTO) 2.2 K/uL (1.0-5.5); LYMPHOCYTES % (AUTO) 21.1 % (20.5-51.5); MEAN CORPUSCULAR HEMOGLOBIN 30 pg (27-31); MEAN CORPUSCULAR HGB CONC 33 % (32-36); MEAN CORPUSCULAR VOLUME 89 fL (79.0-98.0); MONOCYTES # (AUTO) 0.8 K/uL (0.0-1.0); MONOCYTES % (AUTO) 8.1 % (1.7-9.3); PLATELET COUNT (AUTO) 405 K/uL (130-430); RED BLOOD CELL COUNT(AUTO) 4.03 MIL/uL (4.2-6.2); RED CELL DISTRIBUTION WIDTH 13.2 % (9.0-15.0); WHITE BLOOD COUNT (AUTO) 10.2 K/uL (4.8-10.8)
[2017-05-29 10:35] LABS: CREATININE 0.41 mg/dL (0.55-1.30); NEUTROPHILS % (AUTO) 69.1 % (40.0-70.0); POTASSIUM 4.3 mmol/L (3.5-5.1)
[2017-05-29 10:36] LABS: BASOPHILS % (AUTO) 0.3 % (0.0-2.0); NEUTROPHILS # (AUTO) 7.1 K/uL (1.8-7.7)
[2017-05-29 12:16] VITALS: BP_SYST 118; BP_SYST 148
[2017-05-29 15:20] VITALS: BP_SYST 113
[2017-05-29 20:20] VITALS: BP_SYST 110
[2017-05-30] VITALS (8 sets, daily range): BP systolic 96–125
[2017-05-30] MEDS: KCL 20 mEq in D5NS 1000 mL 1,000 ML IV SCH ×2 (04:22→15:15)
[2017-05-30] MEDS: PANTOPRAZOLE SODIUM 40 MG/VIAL (PROTONIX) IVP SCH ×2 (08:58→22:35)
[2017-05-30] MEDS: ENOXAPARIN SODIUM 40 MG/0.4 ML SYRINGE SUBCUT SCH (08:59)
[2017-05-30] MEDS: levETIRAcetam 500 MG TABLET GT SCH ×2 (08:59→22:34)
[2017-05-31] MEDS: KCL 20 mEq in D5NS 1000 mL 1,000 ML IV SCH ×2 (01:03→09:39)
[2017-05-31 03:15] VITALS: BP_SYST 120
[2017-05-31 06:54] LABS: BASOPHILS # (AUTO) 0.1 K/uL (0.0-0.2); BASOPHILS % (AUTO) 0.6 % (0.0-2.0); EOSINOPHILS # (AUTO) 0.1 K/uL (0.0-0.4); EOSINOPHILS % (AUTO) 1.4 % (0.0-4.0); HEMATOCRIT 36.7 % (36-48); HEMOGLOBIN 12.5 g/dL (12.0-16.0); LYMPHOCYTES # (AUTO) 1.8 K/uL (1.0-5.5); LYMPHOCYTES % (AUTO) 18.6 % (20.5-51.5); MEAN CORPUSCULAR HEMOGLOBIN 30 pg (27-31); MEAN CORPUSCULAR HGB CONC 34 % (32-36); MEAN CORPUSCULAR VOLUME 89 fL (79.0-98.0); MONOCYTES # (AUTO) 0.6 K/uL (0.0-1.0); MONOCYTES % (AUTO) 6.4 % (1.7-9.3); PLATELET COUNT (AUTO) 361 K/uL (130-430); RED BLOOD CELL COUNT(AUTO) 4.12 MIL/uL (4.2-6.2); RED CELL DISTRIBUTION WIDTH 13.2 % (9.0-15.0); WHITE BLOOD COUNT (AUTO) 9.6 K/uL (4.8-10.8)
[2017-05-31 07:05] LABS: CALCIUM 8.9 mg/dL (8.4-11.0); CREATININE 0.37 mg/dL (0.55-1.30)
[2017-05-31 08:37] VITALS: BP_SYST 109
[2017-05-31] MEDS: ENOXAPARIN SODIUM 40 MG/0.4 ML SYRINGE SUBCUT SCH (09:38)
[2017-05-31] MEDS: levETIRAcetam 500 MG TABLET GT SCH (09:38)
[2017-05-31] MEDS: PANTOPRAZOLE SODIUM 40 MG/VIAL (PROTONIX) IVP SCH (09:39)
[2017-05-31 11:31] VITALS: BP_SYST 131
[2017-05-31 16:34] VITALS: BP_SYST 129
[2017-05-31 17:14] VITALS: BP_SYST 129
== END 2017-05-31 19:50 | disposition home health service (06) | DRG 393 ==
LOC: SED 09:18 → SMU 11:49 → STU 05-26 19:04 → SMU 05-29 10:20
PROVIDERS: ADMIT Family Medicine; ATTEND Family Medicine
PROC: 0D20XUZ Change Feeding Device in Upper Intestinal Tract, External Approach (ICD-10-PCS; 2017-05-21)
PROC: 0DHA3UZ Insertion of Feeding Device into Jejunum, Percutaneous Approach (ICD-10-PCS; principal; 2017-05-24 13:45)
DX: K94.23 Gastrostomy malfunction (principal); G93.40 Encephalopathy, unspecified; K31.6 Fistula of stomach and duodenum; R13.10 Dysphagia, unspecified; E87.1 Hypo-osmolality and hyponatremia; G82.20 Paraplegia, unspecified; R63.0 Anorexia; G40.901 Epilepsy, unspecified, not intractable, with status epilepticus; D64.9 Anemia, unspecified; Y83.3 Surgical operation with formation of external stoma as the cause of abnormal reaction of the patient, or of later complication, without mention of misadventure at the time of the procedure; Z87.440 Personal history of urinary (tract) infections; Z87.820 Personal history of traumatic brain injury; Z79.899 Other long term (current) drug therapy; Z90.49 Acquired absence of other specified parts of digestive tract; Y92.89 Other specified places as the place of occurrence of the external cause; Y93.89 Activity, other specified; Y99.8 Other external cause status
CPT/HCPCS: 36415; 43760; 74000-TC; 74240-TC; 80048; 80053; 81000-TC; 82542; 83735-TC; 84100-TC; 85025; 85610-TC; 87081; 87086; 99285; C1769; C9113; J1650; J1953; J2060; J2175; J2250; J7030; L8699; Q9963

== ENCOUNTER 2017-06-13 09:43 | Inpatient (IN) | payer OTHER ==
[~2017-06-13] VITALS: Ht 157.5 cm; Wt 60.8 kg
[2017-06-13 09:49] VITALS: BP_SYST 99
[2017-06-13 11:24] LABS: BASOPHILS # (AUTO) 0.1 K/uL (0.0-0.2); BASOPHILS % (AUTO) 0.5 % (0.0-2.0); EOSINOPHILS # (AUTO) 0.2 K/uL (0.0-0.4); EOSINOPHILS % (AUTO) 1.4 % (0.0-4.0); HEMATOCRIT 42.5 % (36-48); HEMOGLOBIN 13.7 g/dL (12.0-16.0); LYMPHOCYTES % (AUTO) 27.4 % (20.5-51.5); MEAN CORPUSCULAR HEMOGLOBIN 29 pg (27-31); MEAN CORPUSCULAR HGB CONC 32 % (32-36); MEAN CORPUSCULAR VOLUME 88 fL (79.0-98.0); MONOCYTES # (AUTO) 0.7 K/uL (0.0-1.0); MONOCYTES % (AUTO) 6.8 % (1.7-9.3); NEUTROPHILS # (AUTO) 6.9 K/uL (1.8-7.7); NEUTROPHILS % (AUTO) 63.9 % (40.0-70.0); PLATELET COUNT (AUTO) 430 K/uL (130-430); RED BLOOD CELL COUNT(AUTO) 4.82 MIL/uL (4.2-6.2); RED CELL DISTRIBUTION WIDTH 13.6 % (9.0-15.0); WHITE BLOOD COUNT (AUTO) 10.9 K/uL (4.8-10.8)
[2017-06-13 11:26] LABS: CALCIUM 8.9 mg/dL (8.4-11.0); CREATININE 0.58 mg/dL (0.55-1.30); POTASSIUM 3.6 mmol/L (3.5-5.1)
[2017-06-13 11:39] LABS: ALBUMIN 3.3 g/dL (3.4-4.8); TOTAL BILIRUBIN 0.3 mg/dL (0.0-1.0)
[2017-06-13 12:24] LABS: BILIRUBIN,URINE NEGATIVE (NEGATIVE); BLOOD, URINE 1+ (NEGATIVE); CLARITY/URINE SL CLOUDY (CLEAR); COLOR,URINE YELLOW (YELLOW); GLUCOSE,URINE NEGATIVE (NEGATIVE); KETONES,URINE NEGATIVE (NEGATIVE); LEUKOCYTE ESTERASE ,URINE 3+ (NEGATIVE); NITRITE, URINE POSITIVE (NEGATIVE); PROTEIN URINE NEGATIVE (NEGATIVE); UROBILINOGEN,URINE 0.2 (0.2-1.0)
[2017-06-13 12:30] LABS: BACTERIA,URINE MODERATE /HPF (None Seen); WBC,URINE 20-50 /HPF (0-3)
[2017-06-13] MEDS ORDERED: cefTRIAXone 1 GM IVPB PREMIX 50 ML IV ONE (13:00)
[2017-06-13] MEDS ORDERED: LORazepam 2 MG/ML VIAL IVP PRN (13:45)
[2017-06-13] MEDS ORDERED: NA PHOS,M-B/NA PHOS,DI-BA 118 ML (FLEET ENEMA) RC ONE (13:45)
[2017-06-13] MEDS ORDERED: ACETAMINOPHEN 650 MG SUPP.RECT RC PRN (14:00)
[2017-06-13 14:38] VITALS: BP_SYST 121
[2017-06-13] MEDS: D5/0.45 NS 1,000 ML IV SCH ×2 (15:02→23:19)
[2017-06-13 16:25] VITALS: BP_SYST 104
[2017-06-13] MEDS ORDERED: LACT10SO66 GT (17:13)
[2017-06-13 19:00] VITALS: BP_SYST 139
[2017-06-13 20:00] VITALS: BP_SYST 139
[2017-06-14] VITALS (7 sets, daily range): BP systolic 92–143
[2017-06-14] MEDS: D5/0.45 NS 1,000 ML IV SCH ×3 (11:03→21:31)
[2017-06-14] MEDS ORDERED: LACOSAMIDE 100 MG TABLET GT ONE (14:30)
[2017-06-14] MEDS ORDERED: METOCLOPRAMIDE HCL 10 MG TABLET GT ONE (14:30)
[2017-06-14] MEDS ORDERED: LACTULOSE 20 GM/30 ML UDC GT ONE (14:30)
[2017-06-14] MEDS: METOCLOPRAMIDE HCL 10 MG TABLET GT SCH (18:54)
[2017-06-14] MEDS ORDERED: NON-FORMULARY MEDICATION (Methenamine Hippurate 1 TAB) GT SCH (21:00)
[2017-06-14] MEDS: LACTULOSE 20 GM/30 ML UDC GT SCH (21:20)
[2017-06-14] MEDS: ACETAMINOPHEN 650 MG/20.3 ML UDC GT SCH (21:21)
[2017-06-14] MEDS: ZOLPIDEM TARTRATE 5 MG TABLET PO SCH (21:22)
[2017-06-14] MEDS: LACOSAMIDE 100 MG TABLET GT SCH (21:22)
[2017-06-15] MEDS: METOCLOPRAMIDE HCL 10 MG TABLET GT SCH ×5 (00:10→23:54)
[2017-06-15 04:00] VITALS: BP_SYST 104
[2017-06-15 07:29] LABS: BASOPHILS # (AUTO) 0.1 K/uL (0.0-0.2); BASOPHILS % (AUTO) 1.1 % (0.0-2.0); EOSINOPHILS % (AUTO) 0.6 % (0.0-4.0); HEMATOCRIT 37.8 % (36-48); HEMOGLOBIN 12.9 g/dL (12.0-16.0); LYMPHOCYTES # (AUTO) 2.3 K/uL (1.0-5.5); LYMPHOCYTES % (AUTO) 33.6 % (20.5-51.5); MEAN CORPUSCULAR HEMOGLOBIN 30 pg (27-31); MEAN CORPUSCULAR HGB CONC 34 % (32-36); MEAN CORPUSCULAR VOLUME 89 fL (79.0-98.0); MONOCYTES # (AUTO) 0.5 K/uL (0.0-1.0); NEUTROPHILS % (AUTO) 57.7 % (40.0-70.0); PLATELET COUNT (AUTO) 343 K/uL (130-430); RED BLOOD CELL COUNT(AUTO) 4.26 MIL/uL (4.2-6.2); RED CELL DISTRIBUTION WIDTH 13.4 % (9.0-15.0)
[2017-06-15 07:48] LABS: PROTHROMBIN TIME 10.9 SECS (9.5-12.5)
[2017-06-15 07:55] LABS: WHITE BLOOD COUNT (AUTO) 6.9 K/uL (4.8-10.8)
[2017-06-15 08:00] VITALS: BP_SYST 111
[2017-06-15 08:19] LABS: CALCIUM 8.6 mg/dL (8.4-11.0); CREATININE 0.53 mg/dL (0.55-1.30)
[2017-06-15] MEDS: LACTULOSE 20 GM/30 ML UDC GT SCH ×2 (09:00→22:37)
[2017-06-15] MEDS: CALCIUM 600/VIT D GT SCH ×3 (10:43→22:37)
[2017-06-15] MEDS: LACOSAMIDE 100 MG TABLET GT SCH ×2 (10:44→22:38)
[2017-06-15] MEDS: D5/0.45 NS 1,000 ML IV SCH ×2 (10:44→22:36)
[2017-06-15] MEDS: ACETAMINOPHEN 650 MG/20.3 ML UDC GT SCH ×2 (10:45→22:37)
[2017-06-15 12:00] VITALS: BP_SYST 101
[2017-06-15] MEDS ORDERED: fentaNYL CITRATE/PF 100 MCG/2 ML AMP ONE (15:05)
[2017-06-15] MEDS ORDERED: MIDAZOLAM HCL 5 MG/5 ML VIAL ONE (15:06)
[2017-06-15] MEDS ORDERED: GASTROGRAFIN 120 ML ONE (16:18)
[2017-06-15 17:06] VITALS: BP_SYST 104
[2017-06-15 19:47] VITALS: BP_SYST 131
[2017-06-15] MEDS: ZOLPIDEM TARTRATE 5 MG TABLET PO SCH (22:38)
[2017-06-16 00:06] VITALS: BP_SYST 109
[2017-06-16 04:00] VITALS: BP_SYST 147
[2017-06-16] MEDS: METOCLOPRAMIDE HCL 10 MG TABLET GT SCH ×3 (05:22→18:49)
[2017-06-16] MEDS: CALCIUM 600/VIT D GT SCH (10:04)
[2017-06-16] MEDS: LACTULOSE 20 GM/30 ML UDC GT SCH (10:05)
[2017-06-16] MEDS: ACETAMINOPHEN 650 MG/20.3 ML UDC GT SCH (10:05)
[2017-06-16] MEDS: LACOSAMIDE 100 MG TABLET GT SCH (10:05)
[2017-06-16] MEDS: D5/0.45 NS 1,000 ML IV SCH (10:30)
[2017-06-16 11:35] VITALS: BP_SYST 102; BP_SYST 140
[2017-06-16 17:19] VITALS: BP_SYST 100
[2017-06-16 17:32] VITALS: BP_SYST 102
[2017-06-16 19:20] VITALS: BP_SYST 114
== END 2017-06-16 20:40 | disposition home health service (06) | DRG 393 ==
LOC: SED 09:43 → SMU 12:08
PROVIDERS: ADMIT Internal Medicine; ATTEND Family Medicine
PROC: 0D20XUZ Change Feeding Device in Upper Intestinal Tract, External Approach (ICD-10-PCS; principal; 2017-06-15 13:00)
DX: K94.23 Gastrostomy malfunction (principal); G93.40 Encephalopathy, unspecified; G82.50 Quadriplegia, unspecified; E44.1 Mild protein-calorie malnutrition; K94.13 Enterostomy malfunction; Y83.3 Surgical operation with formation of external stoma as the cause of abnormal reaction of the patient, or of later complication, without mention of misadventure at the time of the procedure; G40.909 Epilepsy, unspecified, not intractable, without status epilepticus; D72.829 Elevated white blood cell count, unspecified; Z87.820 Personal history of traumatic brain injury; Z87.440 Personal history of urinary (tract) infections; Z68.24 Body mass index [BMI] 24.0-24.9, adult; Y92.89 Other specified places as the place of occurrence of the external cause; Z79.899 Other long term (current) drug therapy
CPT/HCPCS: 36415; 43760; 74000-TC; 74240-TC; 80048; 80053; 81000-TC; 83690-TC; 85025; 85610-TC; 85730-TC; 87081; 87086; 96365; 99285; J0696; J2250; J3010; J8597; L8699; Q9963

== ENCOUNTER 2017-07-13 10:04 | Emergency (ER) | payer OTHER ==
[2017-06-15 14:19] VITALS: Ht 157.5 cm; Wt 59.9 kg
[~2017-07-13] VITALS: Ht 157.5 cm; Wt 59.9 kg
[~2017-07-13 10:04] MED LIST changes: +ASCO-339 GT; +ASCO500T20 GT; +BACL10TA GT; +CALC-226 PO; +CALC1TAB51 GT; +CEPH500C2 GT; +CIPR-211 GT; +DITXL5 GT; +LACT10SO66 GT; +LACT10SO66 PO; +LANS15CA5 GT; +LANS30CA10 PO; +LEVE1000 GT; +LEVE250T2 GT; +LEVE500T13 GT; +LEVE500T13 PO; +NITR25OR3 PO; +NITR50CA GT; +ONDA4TAB22 PO; +OXYB10TA11 PO; +OXYB5TAB11 GT; +TEMA15CA51 GT; +TEMA30CA5 GT; +VITD2000 GT; +[UNRECOGNIZED DRUG - CODE] GT
[2017-07-13 10:05] VITALS: BP 97/71; PULSE 92; RESP 16; TEMP 96.7; O2SAT 94
[2017-07-13] MEDS ORDERED: GASTROGRAFIN 120 ML ONE (11:47)
== END 2017-07-13 12:15 | disposition home or self-care (01) ==
LOC: SED 10:04
DX: K94.23 Gastrostomy malfunction (principal); G82.50 Quadriplegia, unspecified; Z86.73 Personal history of transient ischemic attack (TIA), and cerebral infarction without residual deficits; Z79.899 Other long term (current) drug therapy
CPT/HCPCS: 43760; 74240; 99284; Q9963

== ENCOUNTER 2017-07-20 13:31 | Inpatient (IN) | payer OTHER ==
[~2017-07-20] VITALS: Ht 160 cm; Wt 54.9 kg
[~2017-07-20 13:31] MED LIST changes: -ASCO-339 GT; -ASCO500T20 GT; -BACL10TA GT; -CALC-226 PO; -CALC1TAB51 GT; -CEPH500C2 GT; -CIPR-211 GT; -DITXL5 GT; -LACT10SO66 PO; -LANS15CA5 GT; -LANS30CA10 PO; -LEVE1000 GT; -LEVE500T13 GT; -LEVE500T13 PO; -NITR25OR3 PO; -NITR50CA GT; -ONDA4TAB22 PO; -OXYB10TA11 PO; -OXYB5TAB11 GT; -TEMA15CA51 GT; -TEMA30CA5 GT; -VITD2000 GT; -[UNRECOGNIZED DRUG - CODE] GT
[2017-07-20 13:43] VITALS: BP_SYST 99
[2017-07-20] MEDS ORDERED: VANCOMYCIN HCL 1,000 MG in NS 250 ML IV ONE (14:00)
[2017-07-20] MEDS ORDERED: NACL 0.9% 1,000 ML IV SCH (14:00)
[2017-07-20 15:01] LABS: BASOPHILS % (AUTO) 0.4 % (0.0-2.0); EOSINOPHILS # (AUTO) 0.2 K/uL (0.0-0.4); EOSINOPHILS % (AUTO) 1.7 % (0.0-4.0); HEMATOCRIT 39.9 % (36-48); LYMPHOCYTES # (AUTO) 2.7 K/uL (1.0-5.5); LYMPHOCYTES % (AUTO) 29.9 % (20.5-51.5); MEAN CORPUSCULAR HEMOGLOBIN 29 pg (27-31); MEAN CORPUSCULAR HGB CONC 33 % (32-36); MEAN CORPUSCULAR VOLUME 89 fL (79.0-98.0); MONOCYTES # (AUTO) 0.6 K/uL (0.0-1.0); NEUTROPHILS # (AUTO) 5.7 K/uL (1.8-7.7); PLATELET COUNT (AUTO) 319 K/uL (130-430); RED BLOOD CELL COUNT(AUTO) 4.48 MIL/uL (4.2-6.2); RED CELL DISTRIBUTION WIDTH 14.7 % (9.0-15.0); WHITE BLOOD COUNT (AUTO) 9.2 K/uL (4.8-10.8)
[2017-07-20] MEDS ORDERED: VANCOMYCIN HCL 1000 MG/VIAL IV ONE (15:07)
[2017-07-20 15:29] LABS: PROTHROMBIN TIME 9.9 SECS (9.5-12.5)
[2017-07-20 15:30] LABS: CALCIUM 9.1 mg/dL (8.4-11.0); CREATININE 0.23 mg/dL (0.55-1.30); POTASSIUM 3.8 mmol/L (3.5-5.1)
[2017-07-20 15:34] LABS: ALBUMIN 3.1 g/dL (3.4-4.8); TOTAL BILIRUBIN 0.2 mg/dL (0.0-1.0)
[2017-07-20] MEDS ORDERED: PIPERACILLIN/TAZO 3.375 GM in NS 50 ML IV ONE (16:00)
[2017-07-20] MEDS ORDERED: D5 IV SCH (17:30)
[2017-07-20] MEDS ORDERED: POTASSIUM CHLORIDE IV SCH (17:30)
[2017-07-20] MEDS ORDERED: [UNRECOGNIZED DRUG - OTHER] IV SCH (17:30)
[2017-07-20] MEDS ORDERED: PIPERACILLIN/TAZOBACTAM 3.375 GM/VIAL (ZOSYN) IV ONE (17:52)
[2017-07-20 18:54] VITALS: BP_SYST 107
[2017-07-20 20:00] VITALS: BP_SYST 102
[2017-07-20] MEDS ORDERED: levETIRAcetam 500 MG TABLET GT SCH (21:00)
[2017-07-20] MEDS: OXYBUTYNIN CHLORIDE 5 MG TABLET PO SCH (22:14)
[2017-07-20] MEDS: LACTULOSE 20 GM/30 ML UDC GT SCH (22:14)
[2017-07-20] MEDS: ZOLPIDEM TARTRATE 5 MG TABLET PO SCH (22:15)
[2017-07-20] MEDS: LACOSAMIDE 100 MG TABLET GT SCH (22:15)
[2017-07-20] MEDS: ACETAMINOPHEN 650 MG/20.3 ML UDC GT SCH (22:16)
[2017-07-20] MEDS: KCL 20 mEq in D5/0.45NS 1000mL 1,000 ML IV SCH (22:47)
[2017-07-20] MEDS: PIPERACILLIN/TAZO 3.375/DEX-IS 50 ML IV SCH (23:59)
[2017-07-21] MEDS: METOCLOPRAMIDE HCL 10 MG TABLET GT SCH ×4 (00:01→17:23)
[2017-07-21] MEDS ORDERED: FLU VACC QS 2017-18(36MOS+)/PF 0.5 ML/SYR SYRINGE I.M. PRN (00:30)
[2017-07-21] MEDS ORDERED: VANCOMYCIN HCL 1 GM/NS PREMIX 250 ML IV ONE (03:00)
[2017-07-21 03:49] VITALS: BP_SYST 110
[2017-07-21] MEDS: PIPERACILLIN/TAZO 3.375/DEX-IS 50 ML IV SCH ×3 (05:27→17:24)
[2017-07-21 08:00] VITALS: BP_SYST 91
[2017-07-21] MEDS: ACETAMINOPHEN 650 MG/20.3 ML UDC GT SCH ×2 (08:32→20:37)
[2017-07-21] MEDS: LACTULOSE 20 GM/30 ML UDC GT SCH ×2 (08:32→20:37)
[2017-07-21] MEDS: OXYBUTYNIN CHLORIDE 5 MG TABLET PO SCH ×2 (08:33→20:38)
[2017-07-21] MEDS: LACOSAMIDE 100 MG TABLET GT SCH ×2 (08:33→20:38)
[2017-07-21] MEDS: CALCIUM 600/VIT D GT SCH ×2 (08:33→20:37)
[2017-07-21 11:33] VITALS: BP_SYST 91
[2017-07-21] MEDS: KCL 20 mEq in D5/0.45NS 1000mL 1,000 ML IV SCH (11:33)
[2017-07-21] MEDS: VANCOMYCIN HCL 750 MG in NS 250 ML IV SCH (13:50)
[2017-07-21 15:26] VITALS: BP_SYST 108
[2017-07-21 20:20] VITALS: BP_SYST 117
[2017-07-21] MEDS: levETIRAcetam 500 MG TABLET GT SCH (20:37)
[2017-07-21] MEDS: ZOLPIDEM TARTRATE 5 MG TABLET PO SCH (20:38)
[2017-07-21 23:37] VITALS: BP_SYST 121
[2017-07-22] MEDS: METOCLOPRAMIDE HCL 10 MG TABLET GT SCH ×4 (00:49→18:29)
[2017-07-22] MEDS: PIPERACILLIN/TAZO 3.375/DEX-IS 50 ML IV SCH ×4 (00:49→18:29)
[2017-07-22] MEDS: VANCOMYCIN HCL 750 MG in NS 250 ML IV SCH ×2 (01:48→14:07)
[2017-07-22] MEDS: KCL 20 mEq in D5/0.45NS 1000mL 1,000 ML IV SCH ×3 (01:48→18:27)
[2017-07-22 03:55] VITALS: BP_SYST 101
[2017-07-22 08:00] VITALS: BP_SYST 105
[2017-07-22] MEDS: OXYBUTYNIN CHLORIDE 5 MG TABLET PO SCH ×2 (09:55→22:07)
[2017-07-22] MEDS: CALCIUM 600/VIT D GT SCH ×2 (09:55→21:50)
[2017-07-22] MEDS: levETIRAcetam 500 MG TABLET GT SCH ×2 (09:55→21:50)
[2017-07-22] MEDS: LACOSAMIDE 100 MG TABLET GT SCH ×2 (09:55→22:07)
[2017-07-22] MEDS: LACTULOSE 20 GM/30 ML UDC GT SCH ×2 (09:56→21:50)
[2017-07-22] MEDS: ACETAMINOPHEN 650 MG/20.3 ML UDC GT SCH ×2 (09:56→21:51)
[2017-07-22 12:32] VITALS: BP_SYST 99
[2017-07-22 16:41] VITALS: BP_SYST 114
[2017-07-22] MEDS ORDERED: MENTHOL/ZINC OXIDE 113 GM OINT. TP PRN (18:00)
[2017-07-22 20:00] VITALS: BP_SYST 103
[2017-07-22] MEDS: ZOLPIDEM TARTRATE 5 MG TABLET PO SCH (21:50)
[2017-07-22] MEDS: MENTHOL/ZINC OXIDE 113 GM OINT. TP SCH (22:07)
[2017-07-23] MEDS: PIPERACILLIN/TAZO 3.375/DEX-IS 50 ML IV SCH ×4 (00:05→18:00)
[2017-07-23 00:56] VITALS: BP_SYST 116
[2017-07-23] MEDS: VANCOMYCIN HCL 750 MG in NS 250 ML IV SCH (03:07)
[2017-07-23] MEDS: METOCLOPRAMIDE HCL 10 MG TABLET GT SCH ×4 (05:29→18:00)
[2017-07-23 06:00] VITALS: BP_SYST 104
[2017-07-23 08:52] VITALS: BP_SYST 105
[2017-07-23] MEDS: LACTULOSE 20 GM/30 ML UDC GT SCH ×2 (09:00→21:00)
[2017-07-23] MEDS: CALCIUM 600/VIT D GT SCH ×2 (09:00→21:00)
[2017-07-23] MEDS: ACETAMINOPHEN 650 MG/20.3 ML UDC GT SCH ×2 (09:00→21:00)
[2017-07-23] MEDS: levETIRAcetam 500 MG TABLET GT SCH ×2 (09:00→21:00)
[2017-07-23] MEDS: OXYBUTYNIN CHLORIDE 5 MG TABLET PO SCH ×2 (09:00→21:00)
[2017-07-23] MEDS: LACOSAMIDE 100 MG TABLET GT SCH ×2 (09:00→21:00)
[2017-07-23 09:06] LABS: BASOPHILS % (AUTO) 0.4 % (0.0-2.0); EOSINOPHILS # (AUTO) 0.1 K/uL (0.0-0.4); HEMATOCRIT 33.8 % (36-48); HEMOGLOBIN 11.5 g/dL (12.0-16.0); LYMPHOCYTES # (AUTO) 1.9 K/uL (1.0-5.5); LYMPHOCYTES % (AUTO) 28.4 % (20.5-51.5); MEAN CORPUSCULAR HEMOGLOBIN 30 pg (27-31); MEAN CORPUSCULAR HGB CONC 34 % (32-36); MEAN CORPUSCULAR VOLUME 90 fL (79.0-98.0); MONOCYTES # (AUTO) 0.5 K/uL (0.0-1.0); NEUTROPHILS # (AUTO) 4.3 K/uL (1.8-7.7); NEUTROPHILS % (AUTO) 61.2 % (40.0-70.0); PLATELET COUNT (AUTO) 233 K/uL (130-430); RED BLOOD CELL COUNT(AUTO) 3.78 MIL/uL (4.2-6.2); RED CELL DISTRIBUTION WIDTH 15.5 % (9.0-15.0); WHITE BLOOD COUNT (AUTO) 6.8 K/uL (4.8-10.8)
[2017-07-23 09:12] LABS: CALCIUM 9.1 mg/dL (8.4-11.0); CREATININE 0.36 mg/dL (0.55-1.30); POTASSIUM 3.7 mmol/L (3.5-5.1)
[2017-07-23] MEDS: MENTHOL/ZINC OXIDE 113 GM OINT. TP SCH ×4 (09:45→22:09)
[2017-07-23 11:30] VITALS: BP_SYST 104
[2017-07-23] MEDS: KCL 20 mEq in D5/0.45NS 1000mL 1,000 ML IV SCH (12:33)
[2017-07-23] MEDS ORDERED: fentaNYL CITRATE 250 MCG/5 ML AMP IV ONE (16:00)
[2017-07-23] MEDS ORDERED: LR 1,000 ML IV.SOLN IV ONE (16:00)
[2017-07-23] MEDS ORDERED: SEVOFLURANE 15 MIN GAS INH ONE (16:00)
[2017-07-23] MEDS ORDERED: NS IRRIG SOLN 1000 ML IR ONE (16:00)
[2017-07-23] MEDS ORDERED: PROPOFOL 200MG/ 20ML VIAL (DIPRIVAN) IV ONE (16:00)
[2017-07-23] MEDS ORDERED: KETOROLAC TROMETHAMINE 30 MG VIAL IVP ONE (16:00)
[2017-07-23] MEDS ORDERED: MIDAZOLAM HCL 5 MG/ML VIAL (VERSED) IV ONE (16:00)
[2017-07-23] MEDS ORDERED: ROCURONIUM BROMIDE 10 MG/ML (ZEMURON) IV ONE (16:00)
[2017-07-23] MEDS ORDERED: LR 1,000 ML IV ONE (17:04)
[2017-07-23] MEDS ORDERED: ePHEDrine sulfate 50 MG/ML VIAL IVP PRN (17:15)
[2017-07-23] MEDS ORDERED: NALOXONE HCL 0.4 MG/ML AMP (NARCAN) IVP PRN (17:15)
[2017-07-23] MEDS ORDERED: DIPHENHYDRAMINE INJ 50 MG/ML VIAL IVP PRN (17:15)
[2017-07-23] MEDS ORDERED: NALBUPHINE HCL 10 MG/ML AMP IVP PRN (17:15)
[2017-07-23] MEDS ORDERED: ONDANSETRON HCL 4 MG/2 ML VIAL IVP PRN ×3 (17:15→23:15)
[2017-07-23] MEDS ORDERED: fentaNYL CITRATE/PF 100 MCG/2 ML AMP IVP PRN (17:15)
[2017-07-23] MEDS: ZOLPIDEM TARTRATE 5 MG TABLET PO SCH (21:00)
[2017-07-23] MEDS ORDERED: CEFEPIME 1 GM/VIAL (MAXIPIME) ONE (22:19)
[2017-07-23] MEDS: CEFEPIME 1 GM in D5W 50 ML IV SCH (22:45)
[2017-07-23] MEDS ORDERED: levETIRAcetam 500 MG in NS 100 ML IV ONE (23:15)
[2017-07-23] MEDS ORDERED: LORazepam 2 MG/ML VIAL IVP PRN (23:15)
[2017-07-24 00:08] VITALS: BP_SYST 114
[2017-07-24] MEDS: VANCOMYCIN HCL 750 MG in NS 250 ML IV SCH ×2 (01:42→14:40)
[2017-07-24] MEDS: KCL 20 mEq in D5/0.45NS 1000mL 1,000 ML IV SCH ×3 (04:14→15:00)
[2017-07-24 04:19] VITALS: BP_SYST 95
[2017-07-24] MEDS: METOCLOPRAMIDE HCL 10 MG TABLET GT SCH ×5 (06:00→23:08)
[2017-07-24 07:12] LABS: ALBUMIN 2.4 g/dL (3.4-4.8); CALCIUM 8.7 mg/dL (8.4-11.0); CREATININE 0.27 mg/dL (0.55-1.30); POTASSIUM 4.1 mmol/L (3.5-5.1); TOTAL BILIRUBIN 0.3 mg/dL (0.0-1.0)
[2017-07-24 07:30] VITALS: BP_SYST 114
[2017-07-24 07:57] LABS: BASOPHILS % (AUTO) 0.1 % (0.0-2.0); HEMATOCRIT 35.2 % (36-48); HEMOGLOBIN 11.7 g/dL (12.0-16.0); LYMPHOCYTES # (AUTO) 0.9 K/uL (1.0-5.5); LYMPHOCYTES % (AUTO) 7.4 % (20.5-51.5); MEAN CORPUSCULAR HEMOGLOBIN 30 pg (27-31); MEAN CORPUSCULAR HGB CONC 33 % (32-36); MEAN CORPUSCULAR VOLUME 89 fL (79.0-98.0); MONOCYTES # (AUTO) 0.5 K/uL (0.0-1.0); NEUTROPHILS # (AUTO) 10.4 K/uL (1.8-7.7); NEUTROPHILS % (AUTO) 88.5 % (40.0-70.0); PLATELET COUNT (AUTO) 248 K/uL (130-430); RED BLOOD CELL COUNT(AUTO) 3.94 MIL/uL (4.2-6.2); WHITE BLOOD COUNT (AUTO) 11.8 K/uL (4.8-10.8)
[2017-07-24] MEDS: PANTOPRAZOLE SODIUM 40 MG/VIAL (PROTONIX) IVP SCH ×2 (08:22→22:23)
[2017-07-24] MEDS: CEFEPIME 1 GM in D5W 50 ML IV SCH ×2 (08:24→22:29)
[2017-07-24] MEDS: levETIRAcetam 500 MG in NS 100 ML IV SCH ×2 (09:16→22:24)
[2017-07-24] MEDS: OXYBUTYNIN CHLORIDE 5 MG TABLET PO SCH ×2 (11:17→22:22)
[2017-07-24] MEDS: LACOSAMIDE 100 MG TABLET GT SCH ×2 (11:17→22:23)
[2017-07-24] MEDS: CALCIUM 600/VIT D GT SCH ×2 (11:17→22:22)
[2017-07-24] MEDS: MENTHOL/ZINC OXIDE 113 GM OINT. TP SCH ×4 (11:18→22:26)
[2017-07-24] MEDS: LACTULOSE 20 GM/30 ML UDC GT SCH ×2 (11:18→22:24)
[2017-07-24] MEDS: ACETAMINOPHEN 650 MG/20.3 ML UDC GT SCH ×2 (11:20→22:23)
[2017-07-24 12:34] VITALS: BP_SYST 94
[2017-07-24 16:41] VITALS: BP_SYST 110
[2017-07-24 20:00] VITALS: BP_SYST 98
[2017-07-24] MEDS: ZOLPIDEM TARTRATE 5 MG TABLET PO SCH (22:22)
[2017-07-25] VITALS (17 sets, daily range): BP systolic 83–120
[2017-07-25] MEDS: VANCOMYCIN HCL 750 MG in NS 250 ML IV SCH ×2 (01:39→14:24)
[2017-07-25 02:08] LABS: BASOPHILS % (AUTO) 0.4 % (0.0-2.0); EOSINOPHILS % (AUTO) 0.6 % (0.0-4.0); HEMATOCRIT 26.5 % (36-48); HEMOGLOBIN 8.6 g/dL (12.0-16.0); LYMPHOCYTES % (AUTO) 27.4 % (20.5-51.5); MEAN CORPUSCULAR HEMOGLOBIN 29 pg (27-31); MEAN CORPUSCULAR HGB CONC 33 % (32-36); MEAN CORPUSCULAR VOLUME 90 fL (79.0-98.0); MONOCYTES # (AUTO) 0.8 K/uL (0.0-1.0); MONOCYTES % (AUTO) 10.8 % (1.7-9.3); NEUTROPHILS # (AUTO) 4.5 K/uL (1.8-7.7); NEUTROPHILS % (AUTO) 60.8 % (40.0-70.0); PLATELET COUNT (AUTO) 200 K/uL (130-430); RED BLOOD CELL COUNT(AUTO) 2.96 MIL/uL (4.2-6.2); RED CELL DISTRIBUTION WIDTH 15.3 % (9.0-15.0); WHITE BLOOD COUNT (AUTO) 7.3 K/uL (4.8-10.8)
[2017-07-25 02:13] LABS: CALCIUM 7.7 mg/dL (8.4-11.0); CREATININE 0.3 mg/dL (0.55-1.30); POTASSIUM 3.4 mmol/L (3.5-5.1)
[2017-07-25] MEDS: METOCLOPRAMIDE HCL 10 MG TABLET GT SCH ×3 (06:20→17:03)
[2017-07-25] MEDS: LACOSAMIDE 100 MG TABLET GT SCH ×2 (08:08→20:54)
[2017-07-25] MEDS: PANTOPRAZOLE SODIUM 40 MG/VIAL (PROTONIX) IVP SCH ×2 (08:09→20:55)
[2017-07-25] MEDS: OXYBUTYNIN CHLORIDE 5 MG TABLET PO SCH ×2 (08:09→22:06)
[2017-07-25] MEDS: CALCIUM 600/VIT D GT SCH ×2 (08:09→20:54)
[2017-07-25] MEDS: LACTULOSE 20 GM/30 ML UDC GT SCH ×2 (08:09→20:54)
[2017-07-25] MEDS: levETIRAcetam 500 MG in NS 100 ML IV SCH ×2 (08:10→20:54)
[2017-07-25] MEDS: CEFEPIME 1 GM in D5W 50 ML IV SCH ×2 (08:50→21:59)
[2017-07-25] MEDS: KCL 20 mEq in D5/0.45NS 1000mL 1,000 ML IV SCH (08:51)
[2017-07-25] MEDS: ACETAMINOPHEN 650 MG/20.3 ML UDC GT SCH ×2 (08:51→20:54)
[2017-07-25 09:13] LABS: BASOPHILS % (AUTO) 0.5 % (0.0-2.0); EOSINOPHILS # (AUTO) 0.1 K/uL (0.0-0.4); EOSINOPHILS % (AUTO) 1.2 % (0.0-4.0); HEMATOCRIT 31.1 % (36-48); HEMOGLOBIN 10.2 g/dL (12.0-16.0); LYMPHOCYTES % (AUTO) 26.3 % (20.5-51.5); MEAN CORPUSCULAR HEMOGLOBIN 30 pg (27-31); MEAN CORPUSCULAR HGB CONC 33 % (32-36); MEAN CORPUSCULAR VOLUME 90 fL (79.0-98.0); MONOCYTES # (AUTO) 0.9 K/uL (0.0-1.0); MONOCYTES % (AUTO) 11.7 % (1.7-9.3); NEUTROPHILS # (AUTO) 4.6 K/uL (1.8-7.7); NEUTROPHILS % (AUTO) 60.3 % (40.0-70.0); PLATELET COUNT (AUTO) 217 K/uL (130-430); RED BLOOD CELL COUNT(AUTO) 3.45 MIL/uL (4.2-6.2); RED CELL DISTRIBUTION WIDTH 15.7 % (9.0-15.0); WHITE BLOOD COUNT (AUTO) 7.6 K/uL (4.8-10.8)
[2017-07-25 09:33] LABS: CALCIUM 8.1 mg/dL (8.4-11.0); CREATININE 0.32 mg/dL (0.55-1.30); POTASSIUM 3.5 mmol/L (3.5-5.1)
[2017-07-25] MEDS: MENTHOL/ZINC OXIDE 113 GM OINT. TP SCH ×4 (11:00→22:07)
[2017-07-25] MEDS: ZOLPIDEM TARTRATE 5 MG TABLET PO SCH (20:54)
[2017-07-26 00:28] VITALS: BP_SYST 103
[2017-07-26] MEDS: METOCLOPRAMIDE HCL 10 MG TABLET GT SCH ×4 (00:32→18:50)
[2017-07-26] MEDS: KCL 20 mEq in D5/0.45NS 1000mL 1,000 ML IV SCH ×2 (00:33→11:10)
[2017-07-26] MEDS: VANCOMYCIN HCL 750 MG in NS 250 ML IV SCH ×2 (01:26→14:17)
[2017-07-26 04:25] VITALS: BP_SYST 102
[2017-07-26 08:36] VITALS: BP_SYST 118
[2017-07-26] MEDS: PANTOPRAZOLE SODIUM 40 MG/VIAL (PROTONIX) IVP SCH ×2 (09:29→22:03)
[2017-07-26] MEDS: levETIRAcetam 500 MG in NS 100 ML IV SCH ×2 (09:29→22:28)
[2017-07-26] MEDS: CEFEPIME 1 GM in D5W 50 ML IV SCH ×2 (09:29→21:52)
[2017-07-26] MEDS: LACTULOSE 20 GM/30 ML UDC GT SCH ×2 (10:22→20:51)
[2017-07-26] MEDS: CALCIUM 600/VIT D GT SCH ×2 (10:23→20:51)
[2017-07-26] MEDS: OXYBUTYNIN CHLORIDE 5 MG TABLET PO SCH ×2 (10:25→20:51)
[2017-07-26] MEDS: LACOSAMIDE 100 MG TABLET GT SCH ×2 (10:25→20:51)
[2017-07-26] MEDS: ACETAMINOPHEN 650 MG/20.3 ML UDC GT SCH ×2 (10:25→20:50)
[2017-07-26] MEDS: MENTHOL/ZINC OXIDE 113 GM OINT. TP SCH ×4 (10:26→20:52)
[2017-07-26 12:05] VITALS: BP_SYST 113
[2017-07-26 16:13] VITALS: BP_SYST 105
[2017-07-26 19:30] VITALS: BP_SYST 110
[2017-07-26] MEDS: ZOLPIDEM TARTRATE 5 MG TABLET PO SCH (20:51)
[2017-07-27] MEDS: METOCLOPRAMIDE HCL 10 MG TABLET GT SCH ×3 (01:19→10:41)
[2017-07-27] MEDS: KCL 20 mEq in D5/0.45NS 1000mL 1,000 ML IV SCH ×3 (01:42→10:55)
[2017-07-27] MEDS: VANCOMYCIN HCL 750 MG in NS 250 ML IV SCH ×2 (01:44→15:44)
[2017-07-27 04:00] VITALS: BP_SYST 114
[2017-07-27 08:00] VITALS: BP_SYST 112
[2017-07-27] MEDS: MENTHOL/ZINC OXIDE 113 GM OINT. TP SCH ×3 (09:00→17:00)
[2017-07-27] MEDS: PANTOPRAZOLE SODIUM 40 MG/VIAL (PROTONIX) IVP SCH (10:40)
[2017-07-27] MEDS: LACTULOSE 20 GM/30 ML UDC GT SCH (10:40)
[2017-07-27] MEDS: CALCIUM 600/VIT D GT SCH (10:41)
[2017-07-27] MEDS: ACETAMINOPHEN 650 MG/20.3 ML UDC GT SCH ×2 (10:41→11:41)
[2017-07-27] MEDS: CEFEPIME 1 GM in D5W 50 ML IV SCH (10:53)
[2017-07-27] MEDS: levETIRAcetam 500 MG in NS 100 ML IV SCH (10:53)
[2017-07-27] MEDS: LACOSAMIDE 100 MG TABLET GT SCH (10:54)
[2017-07-27] MEDS: OXYBUTYNIN CHLORIDE 5 MG TABLET PO SCH (10:54)
[2017-07-27 11:39] VITALS: BP_SYST 114
[2017-07-27 17:23] VITALS: BP_SYST 112
[2017-07-27 18:36] VITALS: BP_SYST 112
== END 2017-07-27 20:30 | DRG 326 ==
LOC: SED 13:33 → SMU 17:23 → STU 07-23 21:56 → SMU 07-24 15:57 → SIC 07-25 02:00 → STU 07-25 15:30 → SMU 07-26 23:36
PROVIDERS: ADMIT Family Medicine; ATTEND Family Medicine
PROC: 0DH60UZ Insertion of Feeding Device into Stomach, Open Approach (ICD-10-PCS; 2017-07-23)
PROC: 0JB80ZZ Excision of Abdomen Subcutaneous Tissue and Fascia, Open Approach (ICD-10-PCS; principal; 2017-07-23 14:45)
DX: K94.23 Gastrostomy malfunction (principal); G82.50 Quadriplegia, unspecified; K31.6 Fistula of stomach and duodenum; E44.1 Mild protein-calorie malnutrition; L03.311 Cellulitis of abdominal wall; G40.909 Epilepsy, unspecified, not intractable, without status epilepticus; F79 Unspecified intellectual disabilities; Z87.820 Personal history of traumatic brain injury; Z68.21 Body mass index [BMI] 21.0-21.9, adult
CPT/HCPCS: 36415; 36600; 70450-TC; 71010; 80048; 80053; 80202-TC; 82803-TC; 82962; 83605; 85025; 85610-TC; 85730-TC; 87040-TC; 87081; 88304; 88305; 93005; 96365; 96367; 99285; C9113; J0692; J1885; J1953; J2060; J2250; J2405; J2543; J2704; J3010; J3370; J3480; J7030; J7040; J7050; J7060; J7120; J8597

== ENCOUNTER 2017-11-07 19:56 | Inpatient (IN) | payer OTHER, MEDICARE ==
[~2017-11-07] VITALS: Ht 157.5 cm; Wt 65.8 kg
[~2017-11-07 19:56] MED LIST changes: +ZOLP10TA2 GT; -ZOLP10TA2 PO
[2017-11-07 20:00] VITALS: BP_SYST 125
[2017-11-07] MEDS ORDERED: LEVE100S2 GT ×2 (20:40→20:41)
[2017-11-07 20:41] VITALS: BP_SYST 125
[2017-11-07] MEDS ORDERED: levETIRAcetam 1,500 MG in NS 100 ML IV ONE (20:45)
[2017-11-07] MEDS ORDERED: NACL 0.9% 1,000 ML IV ONE (20:45)
[2017-11-07] MEDS ORDERED: LORazepam 2 MG/ML VIAL (FOR ER USE) IVP ONE (20:45)
[2017-11-07] MEDS ORDERED: DITXL5 GT (20:55)
[2017-11-07] MEDS ORDERED: levETIRAcetam 500 MG TABLET PO ONE (21:30)
[2017-11-07] MEDS ORDERED: levETIRAcetam 1,000 MG in NS 100 ML IV ONE (21:30)
[2017-11-07 21:58] LABS: HEMATOCRIT 43.7 % (36-48); HEMOGLOBIN 14.5 g/dL (12.0-16.0); MEAN CORPUSCULAR HEMOGLOBIN 30 pg (27-31); MEAN CORPUSCULAR HGB CONC 33 % (32-36); MEAN CORPUSCULAR VOLUME 89 fL (79.0-98.0); PLATELET COUNT (AUTO) 340 K/uL (130-430); RED BLOOD CELL COUNT(AUTO) 4.89 MIL/uL (4.2-6.2); WHITE BLOOD COUNT (AUTO) 14.7 K/uL (4.8-10.8)
[2017-11-07 22:07] LABS: CALCIUM 9.1 mg/dL (8.4-11.0); CREATININE 0.36 mg/dL (0.55-1.30); POTASSIUM 3.9 mmol/L (3.5-5.1)
[2017-11-07 22:12] LABS: ALBUMIN 3.4 g/dL (3.4-4.8); TOTAL BILIRUBIN 0.3 mg/dL (0.0-1.0)
[2017-11-07 22:33] LABS: BAND % (MANUAL) 3 % (0-6); LYMPHOCYTES % (MANUAL) 8 % (20-46); MONOCYTES % (MANUAL) 8 % (0-11)
[2017-11-07 22:34] LABS: BASOPHILS % (MANUAL) 0 % (0-2); EOSINOPHILS % (MANUAL) 2 % (0-7)
[2017-11-07 22:38] LABS: BILIRUBIN,URINE NEGATIVE (NEGATIVE); BLOOD, URINE NEGATIVE (NEGATIVE); CLARITY/URINE SL HAZY (CLEAR); COLOR,URINE YELLOW (YELLOW); GLUCOSE,URINE NEGATIVE (NEGATIVE); KETONES,URINE NEGATIVE (NEGATIVE); LEUKOCYTE ESTERASE ,URINE 3+ (NEGATIVE); NITRITE, URINE POSITIVE (NEGATIVE); PROTEIN URINE NEGATIVE (NEGATIVE); UROBILINOGEN,URINE 0.2 (0.2-1.0)
[2017-11-07 22:55] LABS: RBC,URINE 0-3 /HPF (0-3); WBC,URINE 20-50 /HPF (0-3)
[2017-11-07 22:56] LABS: BACTERIA,URINE MANY /HPF (None Seen)
[2017-11-07 22:58] LABS: URINE AMORPHOUS PHOSPHATES 1+ /HPF (None Seen)
[2017-11-07] MEDS ORDERED: LEVOFLOXACIN 500 MG/D5W 100 ML IV ONE (23:00)
[2017-11-08] VITALS (8 sets, daily range): BP systolic 93–117
[2017-11-08] MEDS ORDERED: LORazepam 2 MG/ML VIAL IVP PRN (00:15)
[2017-11-08] MEDS: D5/0.45 NS 1,000 ML IV SCH ×2 (00:51→14:47)
[2017-11-08] MEDS ORDERED: MILK OF MAGNESIA 30 ML UDC PO PRN ×2 (08:45→09:00)
[2017-11-08] MEDS: CALCIUM CARBONATE/VITAMIN D3 1 TAB TABLET GT SCH ×2 (09:08→21:03)
[2017-11-08] MEDS: levETIRAcetam 500 MG TABLET PO SCH ×2 (09:08→21:02)
[2017-11-08] MEDS: OXYBUTYNIN CHLORIDE 5 MG TABLET PO SCH ×2 (09:08→21:03)
[2017-11-08] MEDS: LACOSAMIDE 100 MG TABLET GT SCH ×2 (09:09→21:03)
[2017-11-08] MEDS: ENOXAPARIN SODIUM 40 MG/0.4 ML SYRINGE SUBCUT SCH (09:10)
[2017-11-08] MEDS: ACETAMINOPHEN 650 MG/20.3 ML UDC GT SCH ×2 (09:10→21:04)
[2017-11-08] MEDS: LACTULOSE 20 GM/30 ML UDC GT SCH ×2 (09:11→21:03)
[2017-11-08] MEDS: METOCLOPRAMIDE HCL 10 MG TABLET GT SCH ×2 (12:01→17:06)
[2017-11-08] MEDS: MEROPENEM 1 GM in NS 100 ML IV SCH ×2 (14:47→21:18)
[2017-11-08] MEDS: ZOLPIDEM TARTRATE 5 MG TABLET GT SCH (21:02)
[2017-11-09] MEDS: METOCLOPRAMIDE HCL 10 MG TABLET GT SCH ×4 (00:27→17:53)
[2017-11-09 00:32] VITALS: BP_SYST 88
[2017-11-09] MEDS: D5/0.45 NS 1,000 ML IV SCH ×2 (05:16→17:55)
[2017-11-09] MEDS: MEROPENEM 1 GM in NS 100 ML IV SCH ×3 (05:16→21:13)
[2017-11-09 06:06] LABS: BASOPHILS % (AUTO) 0.6 % (0.0-2.0); EOSINOPHILS # (AUTO) 0.1 K/uL (0.0-0.4); EOSINOPHILS % (AUTO) 1.7 % (0.0-4.0); HEMATOCRIT 37.6 % (36-48); HEMOGLOBIN 12.7 g/dL (12.0-16.0); LYMPHOCYTES # (AUTO) 1.7 K/uL (1.0-5.5); MEAN CORPUSCULAR HEMOGLOBIN 31 pg (27-31); MEAN CORPUSCULAR HGB CONC 34 % (32-36); MEAN CORPUSCULAR VOLUME 91 fL (79.0-98.0); MONOCYTES # (AUTO) 0.5 K/uL (0.0-1.0); MONOCYTES % (AUTO) 7.8 % (1.7-9.3); NEUTROPHILS # (AUTO) 4.1 K/uL (1.8-7.7); NEUTROPHILS % (AUTO) 63.9 % (40.0-70.0); PLATELET COUNT (AUTO) 271 K/uL (130-430); RED BLOOD CELL COUNT(AUTO) 4.12 MIL/uL (4.2-6.2); RED CELL DISTRIBUTION WIDTH 15.1 % (9.0-15.0); WHITE BLOOD COUNT (AUTO) 6.4 K/uL (4.8-10.8)
[2017-11-09 06:18] LABS: CALCIUM 8.2 mg/dL (8.4-11.0); CREATININE 0.23 mg/dL (0.55-1.30); POTASSIUM 3.3 mmol/L (3.5-5.1)
[2017-11-09 08:00] VITALS: BP_SYST 123
[2017-11-09] MEDS: LACTULOSE 20 GM/30 ML UDC GT SCH ×2 (09:55→21:13)
[2017-11-09] MEDS: CALCIUM CARBONATE/VITAMIN D3 1 TAB TABLET GT SCH ×2 (09:57→21:12)
[2017-11-09] MEDS: ENOXAPARIN SODIUM 40 MG/0.4 ML SYRINGE SUBCUT SCH (09:57)
[2017-11-09] MEDS: ACETAMINOPHEN 650 MG/20.3 ML UDC GT SCH ×2 (09:57→21:12)
[2017-11-09] MEDS: LACOSAMIDE 100 MG TABLET GT SCH ×2 (09:58→21:11)
[2017-11-09] MEDS: OXYBUTYNIN CHLORIDE 5 MG TABLET PO SCH ×2 (09:58→21:11)
[2017-11-09] MEDS: levETIRAcetam 500 MG TABLET PO SCH ×2 (09:58→21:11)
[2017-11-09 12:20] VITALS: BP_SYST 110
[2017-11-09] MEDS ORDERED: POTASSIUM CHLORIDE 20 MEQ/PKT PACKET GT ONE (12:45)
[2017-11-09 16:09] VITALS: BP_SYST 93
[2017-11-09 19:50] VITALS: BP_SYST 116
[2017-11-09] MEDS: ZOLPIDEM TARTRATE 5 MG TABLET GT SCH (21:11)
[2017-11-10] MEDS: METOCLOPRAMIDE HCL 10 MG TABLET GT SCH ×4 (00:30→18:18)
[2017-11-10 00:46] VITALS: BP_SYST 106
[2017-11-10] MEDS: D5/0.45 NS 1,000 ML IV SCH ×2 (05:16→18:18)
[2017-11-10] MEDS: MEROPENEM 1 GM in NS 100 ML IV SCH ×3 (05:16→22:13)
[2017-11-10 06:32] LABS: BASOPHILS % (AUTO) 0.5 % (0.0-2.0); EOSINOPHILS # (AUTO) 0.2 K/uL (0.0-0.4); HEMATOCRIT 37.9 % (36-48); HEMOGLOBIN 12.9 g/dL (12.0-16.0); LYMPHOCYTES # (AUTO) 2.5 K/uL (1.0-5.5); LYMPHOCYTES % (AUTO) 35.4 % (20.5-51.5); MEAN CORPUSCULAR HEMOGLOBIN 31 pg (27-31); MEAN CORPUSCULAR HGB CONC 34 % (32-36); MEAN CORPUSCULAR VOLUME 90 fL (79.0-98.0); MONOCYTES # (AUTO) 0.5 K/uL (0.0-1.0); MONOCYTES % (AUTO) 7.6 % (1.7-9.3); NEUTROPHILS # (AUTO) 3.8 K/uL (1.8-7.7); NEUTROPHILS % (AUTO) 53.5 % (40.0-70.0); PLATELET COUNT (AUTO) 269 K/uL (130-430); RED CELL DISTRIBUTION WIDTH 14.9 % (9.0-15.0)
[2017-11-10 06:38] LABS: CALCIUM 8.5 mg/dL (8.4-11.0); CREATININE 0.22 mg/dL (0.55-1.30); POTASSIUM 3.5 mmol/L (3.5-5.1)
[2017-11-10 07:35] VITALS: BP_SYST 102
[2017-11-10] MEDS: ENOXAPARIN SODIUM 40 MG/0.4 ML SYRINGE SUBCUT SCH (09:31)
[2017-11-10] MEDS: LACTULOSE 20 GM/30 ML UDC GT SCH ×2 (09:31→22:03)
[2017-11-10] MEDS: ACETAMINOPHEN 650 MG/20.3 ML UDC GT SCH ×2 (09:31→22:04)
[2017-11-10] MEDS: levETIRAcetam 500 MG TABLET PO SCH ×2 (09:32→22:01)
[2017-11-10] MEDS: CALCIUM CARBONATE/VITAMIN D3 1 TAB TABLET GT SCH ×2 (09:32→22:01)
[2017-11-10] MEDS: OXYBUTYNIN CHLORIDE 5 MG TABLET PO SCH ×2 (09:32→22:02)
[2017-11-10] MEDS: LACOSAMIDE 100 MG TABLET GT SCH ×2 (09:32→22:02)
[2017-11-10] MEDS ORDERED: POTASSIUM CHLORIDE 20 MEQ/PKT PACKET PO ONE (09:45)
[2017-11-10 12:14] VITALS: BP_SYST 105
[2017-11-10] MEDS: MUPIROCIN 2% TOPICAL OINTMENT 22 GM NS SCH ×2 (14:12→22:03)
[2017-11-10 16:14] VITALS: BP_SYST 98
[2017-11-10 19:35] VITALS: BP_SYST 100
[2017-11-10] MEDS: ZOLPIDEM TARTRATE 5 MG TABLET GT SCH (22:01)
[2017-11-11 00:20] VITALS: BP_SYST 105
[2017-11-11] MEDS: METOCLOPRAMIDE HCL 10 MG TABLET GT SCH ×4 (00:40→17:39)
[2017-11-11] MEDS: MEROPENEM 1 GM in NS 100 ML IV SCH ×2 (05:37→14:22)
[2017-11-11] MEDS: D5/0.45 NS 1,000 ML IV SCH (05:38)
[2017-11-11 06:11] LABS: BASOPHILS % (AUTO) 0.7 % (0.0-2.0); EOSINOPHILS # (AUTO) 0.2 K/uL (0.0-0.4); EOSINOPHILS % (AUTO) 3.1 % (0.0-4.0); HEMATOCRIT 39.8 % (36-48); HEMOGLOBIN 13.4 g/dL (12.0-16.0); LYMPHOCYTES # (AUTO) 2.3 K/uL (1.0-5.5); LYMPHOCYTES % (AUTO) 33.3 % (20.5-51.5); MEAN CORPUSCULAR HEMOGLOBIN 31 pg (27-31); MEAN CORPUSCULAR HGB CONC 34 % (32-36); MEAN CORPUSCULAR VOLUME 91 fL (79.0-98.0); MONOCYTES # (AUTO) 0.7 K/uL (0.0-1.0); MONOCYTES % (AUTO) 9.3 % (1.7-9.3); NEUTROPHILS # (AUTO) 3.8 K/uL (1.8-7.7); NEUTROPHILS % (AUTO) 53.6 % (40.0-70.0); PLATELET COUNT (AUTO) 299 K/uL (130-430); RED BLOOD CELL COUNT(AUTO) 4.36 MIL/uL (4.2-6.2); RED CELL DISTRIBUTION WIDTH 15.1 % (9.0-15.0)
[2017-11-11 06:26] LABS: CALCIUM 8.8 mg/dL (8.4-11.0); CHLORIDE 104 mmol/L (98-107); GLUCOSE 104 mg/dL (70-99); POTASSIUM 3.8 mmol/L (3.5-5.1); SODIUM SERUM 136 mmol/L (136-145); UREA NITROGEN, BLOOD 10 mg/dL (8-21)
[2017-11-11 06:42] LABS: ANION GAP < 3 (5-15); CREATININE < 0.20 mg/dL (0.55-1.30); GFR AFRICAN AMERICAN 506 mL/min (>90)
[2017-11-11 08:23] VITALS: BP_SYST 96
[2017-11-11] MEDS: ENOXAPARIN SODIUM 40 MG/0.4 ML SYRINGE SUBCUT SCH (09:34)
[2017-11-11] MEDS: CALCIUM CARBONATE/VITAMIN D3 1 TAB TABLET GT SCH (09:35)
[2017-11-11] MEDS: levETIRAcetam 500 MG TABLET PO SCH (09:35)
[2017-11-11] MEDS: LACOSAMIDE 100 MG TABLET GT SCH (09:35)
[2017-11-11] MEDS: OXYBUTYNIN CHLORIDE 5 MG TABLET PO SCH (09:35)
[2017-11-11] MEDS: MUPIROCIN 2% TOPICAL OINTMENT 22 GM NS SCH (09:36)
[2017-11-11] MEDS: LACTULOSE 20 GM/30 ML UDC GT SCH (09:37)
[2017-11-11] MEDS: ACETAMINOPHEN 650 MG/20.3 ML UDC GT SCH (09:37)
[2017-11-11 12:00] VITALS: BP_SYST 124
[2017-11-11 15:49] VITALS: BP_SYST 122
[2017-11-11 16:31] VITALS: BP_SYST 122
== END 2017-11-11 19:39 | disposition home health service (06) | DRG 101 ==
LOC: SED 19:56 → STU 11-08 00:07
PROVIDERS: ADMIT Family Medicine; ATTEND Family Medicine
DX: G40.901 Epilepsy, unspecified, not intractable, with status epilepticus (principal); N31.9 Neuromuscular dysfunction of bladder, unspecified; N39.0 Urinary tract infection, site not specified; Z16.29 Resistance to other single specified antibiotic; Z87.440 Personal history of urinary (tract) infections; Z87.820 Personal history of traumatic brain injury; Z93.1 Gastrostomy status; Z22.322 Carrier or suspected carrier of Methicillin resistant Staphylococcus aureus
CPT/HCPCS: 36415; 71045; 80048; 80053; 81000-TC; 83735-TC; 85007; 85025; 85027; 87081; 87086; 87186-TC; 93005; 96361; 96365; 96375; 99291; G0378; J1650; J1953; J1956; J2060; J2185; J7030; J7120; J8597

== ENCOUNTER 2017-12-18 20:31 | Emergency (ER) | payer OTHER ==
[~2017-12-18 20:31] MED LIST changes: +DITXL5 GT; +LEVE100S2 GT; -LEVE250T2 GT; -OXYB10TA4 GT
[2017-12-18 20:40] VITALS: BP_SYST 98
--- NOTE | 2017-12-18 21:43 | NUR ---
Patient to ER bed 06 to gown for evaluation. Side rails up. Report given to SURI Diaz
--- NOTE | 2017-12-18 21:45 | NUR ---
Pt in Bed 6 with c/o G-Tube malfuntion , Dr Mclain aware.
--- NOTE | 2017-12-18 22:49 | NUR ---
ER at bedside examining patient.
[2017-12-18] MEDS ORDERED: GASTROGRAFIN 120 ML ONE (23:13)
--- NOTE | 2017-12-18 23:19 | NUR ---
G-tube replaced By Dr Mclain tolerated proceedure well.
--- NOTE | 2017-12-18 23:48 | NUR ---
Patient's Mother given written and verbal discharge instructions and verbalizes understanding. ER MD discussed with patient's mother the results and treatment provided. Patient in stable condition. ID arm band removed. No Rx given. Patient educated on pain management and to follow up with PMD. Pain Scale 0/10. Opportunity for questions provided and answered. Medication side effect fact sheet provided.
[2017-12-18 23:50] VITALS: BP_SYST 102
== END 2017-12-18 23:50 | disposition home or self-care (01) ==
LOC: SED 20:31
DX: Z43.1 Encounter for attention to gastrostomy (principal); Z86.79 Personal history of other diseases of the circulatory system; G82.50 Quadriplegia, unspecified; Z79.899 Other long term (current) drug therapy
CPT/HCPCS: 43760; 74240; 99284; Q9963

== ENCOUNTER 2018-01-23 15:46 | Inpatient (IN) | payer OTHER ==
[~2018-01-23] VITALS: Ht 160 cm; Wt 60.8 kg
[2018-01-23 16:00] VITALS: BP_SYST 105
[2018-01-23] MEDS ORDERED: NACL 0.9% 1,000 ML IV ONE (16:09)
[2018-01-23] MEDS ORDERED: ONDANSETRON HCL 4 MG/2 ML VIAL IVP ONE (16:15)
[2018-01-23] MEDS ORDERED: NS 1000 ML BAG IV ONE (16:15)
[2018-01-23 16:54] LABS: BASOPHILS # (AUTO) 0.1 K/uL (0.0-0.2); BASOPHILS % (AUTO) 0.8 % (0.0-2.0); EOSINOPHILS % (AUTO) 0.1 % (0.0-4.0); HEMATOCRIT 42.8 % (36-48); HEMOGLOBIN 14.8 g/dL (12.0-16.0); LYMPHOCYTES # (AUTO) 1.3 K/uL (1.0-5.5); LYMPHOCYTES % (AUTO) 20.3 % (20.5-51.5); MEAN CORPUSCULAR HEMOGLOBIN 31 pg (27-31); MEAN CORPUSCULAR HGB CONC 35 % (32-36); MEAN CORPUSCULAR VOLUME 91 fL (79.0-98.0); MONOCYTES # (AUTO) 0.4 K/uL (0.0-1.0); MONOCYTES % (AUTO) 5.6 % (1.7-9.3); NEUTROPHILS # (AUTO) 4.6 K/uL (1.8-7.7); PLATELET COUNT (AUTO) 249 K/uL (130-430); RED BLOOD CELL COUNT(AUTO) 4.74 MIL/uL (4.2-6.2); RED CELL DISTRIBUTION WIDTH 13.8 % (9.0-15.0); WHITE BLOOD COUNT (AUTO) 6.4 K/uL (4.8-10.8)
[2018-01-23 17:05] LABS: ANION GAP 6 (5-15); CHLORIDE 87 mmol/L (98-107); CREATININE 0.36 mg/dL (0.55-1.30); GLUCOSE 120 mg/dL (70-99); SODIUM SERUM 126 mmol/L (136-145); UREA NITROGEN, BLOOD 5 mg/dL (8-21)
[2018-01-23 17:09] LABS: INR 1.1 (0.8-1.2); PROTHROMBIN TIME 11.3 SECS (9.5-12.5)
[2018-01-23 17:14] LABS: GFR AFRICAN AMERICAN 257 mL/min (>90)
[2018-01-23] MEDS ORDERED: KCL 20 mEq in 100 mL (PREMIX) 100 ML IV ONE (17:15)
[2018-01-23] MEDS ORDERED: POTASSIUM CHLORIDE 20 MEQ TAB.PRT.SR GT ONE (17:15)
[2018-01-23 17:18] LABS: TOTAL BILIRUBIN 0.3 mg/dL (0.0-1.0)
[2018-01-23 17:19] LABS: ALANINE AMINOTRANSFERASE 73 U/L (12-78); ALCOHOL, BLOOD < 3 mg/dL (<10); AMYLASE 14 U/L (0-100); ASPARTATE AMINOTRANSFERASE 142 U/L (10-37); LIPASE 35 U/L (73-393); NEUTROPHILS % (AUTO) 73.2 % (40.0-70.0)
[2018-01-23] MEDS ORDERED: POTASSIUM CHLORIDE 20 MEQ/PKT PACKET PO ONE (17:30)
[2018-01-23 17:34] LABS: BILIRUBIN,URINE NEGATIVE (NEGATIVE); CLARITY/URINE SL CLOUDY (CLEAR); COLOR,URINE YELLOW (YELLOW); GLUCOSE,URINE NEGATIVE (NEGATIVE); KETONES,URINE NEGATIVE (NEGATIVE); LEUKOCYTE ESTERASE ,URINE 3+ (NEGATIVE); NITRITE, URINE POSITIVE (NEGATIVE); PROTEIN URINE TRACE (NEGATIVE); UROBILINOGEN,URINE 0.2 (0.2-1.0)
[2018-01-23 17:37] LABS: BLOOD, URINE TRACE (NEGATIVE)
[2018-01-23 17:42] LABS: BARBITURATE, URINE NEGATIVE (NEG <=200); BENZODIAZEPINE, URINE NEGATIVE (NEG <=150); CANNABINOID, URINE NEGATIVE (NEG <=50); COCAINE, URINE NEGATIVE (NEG <=150); METHAMPHETAMINES SCREEN,URINE NEGATIVE (NEG <=500); OPIATE, URINE NEGATIVE (NEG <=100); PHENCYCLIDINE SCREEN,URINE NEGATIVE (NEG <=25); UR TRICYCLIC ANTIDEPRESSANTS NEGATIVE (NEG <=300); URINE AMPHETAMINE NEGATIVE (NEG <=500); URINE METHADONE NEGATIVE (NEG <=200); URINE OXYCODONE SCREEN NEGATIVE (NEG <=100); URINE PROPOXYPHENE SCREEN NEGATIVE (NEG <=300)
[2018-01-23] MEDS ORDERED: cefTRIAXone 1 GM IVPB PREMIX 50 ML IV ONE (17:45)
[2018-01-23 17:56] LABS: BACTERIA,URINE MANY /HPF (None Seen); CALCIUM OXALATE CRYSTALS,UR 0-10 /HPF (None Seen); FINE GRANULAR CASTS,URINE 0-10 /LPF (None Seen); MUCUS,URINE 2+ /LPF (None Seen); WBC,URINE >100 /HPF (0-3)
[2018-01-23 19:14] VITALS: BP_SYST 103
[2018-01-23] MEDS ORDERED: ONDANSETRON HCL 4 MG/2 ML VIAL IVP PRN (20:45)
[2018-01-23] MEDS ORDERED: BISACODYL 10 MG/SUPPOSITORY RC SCH (20:45)
[2018-01-23] MEDS: CALCIUM 600/VIT D GT SCH (21:00)
[2018-01-23] MEDS ORDERED: NON-FORMULARY MEDICATION (Methenamine Hippurate 1 TAB) GT SCH (21:00)
[2018-01-23] MEDS ORDERED: OXYBUTYNIN CHLORIDE 5 MG XL TAB PO SCH (21:00)
[2018-01-23 21:21] LABS: CALCIUM 7.7 mg/dL (8.4-11.0); CREATININE 0.31 mg/dL (0.55-1.30); POTASSIUM 3.7 mmol/L (3.5-5.1)
[2018-01-23] MEDS ORDERED: PIPERACILLIN/TAZOBACTAM 3.375 GM/VIAL (ZOSYN) IV ONE (21:24)
[2018-01-23] MEDS: LACTULOSE 20 GM/30 ML UDC GT SCH (21:43)
[2018-01-23] MEDS: LACOSAMIDE 100 MG TABLET GT SCH (21:43)
[2018-01-23] MEDS: OXYBUTYNIN CHLORIDE 5 MG TABLET GT SCH (21:43)
[2018-01-23] MEDS: ACETAMINOPHEN 650 MG/20.3 ML UDC GT SCH (21:43)
[2018-01-23] MEDS: POTASSIUM CHLORIDE 20 MEQ in NACL 0.9% 1,000 ML IV SCH (22:20)
[2018-01-23] MEDS: PIPERACILLIN/TAZO 3.375/DEX-IS 50 ML IV SCH (23:40)
[2018-01-23] MEDS: METOCLOPRAMIDE HCL 10 MG TABLET GT SCH (23:40)
[2018-01-24 01:02] VITALS: BP_SYST 96
[2018-01-24] MEDS: PIPERACILLIN/TAZO 3.375/DEX-IS 50 ML IV SCH ×3 (05:01→17:05)
[2018-01-24] MEDS: METOCLOPRAMIDE HCL 10 MG TABLET GT SCH ×3 (05:01→17:05)
[2018-01-24] MEDS: POTASSIUM CHLORIDE 20 MEQ in NACL 0.9% 1,000 ML IV SCH ×2 (06:20→11:43)
[2018-01-24 08:13] VITALS: BP_SYST 100
[2018-01-24] MEDS: LACOSAMIDE 100 MG TABLET GT SCH ×2 (08:30→21:06)
[2018-01-24] MEDS: OXYBUTYNIN CHLORIDE 5 MG TABLET GT SCH ×2 (08:30→21:06)
[2018-01-24] MEDS: CALCIUM 600/VIT D GT SCH ×3 (08:30→21:06)
[2018-01-24] MEDS: ACETAMINOPHEN 650 MG/20.3 ML UDC GT SCH ×2 (08:30→21:07)
[2018-01-24] MEDS: LACTULOSE 20 GM/30 ML UDC GT SCH ×2 (08:31→21:00)
[2018-01-24] MEDS ORDERED: LEVETIRACETAM GT SCH ×2 (09:00→18:00)
[2018-01-24 11:29] VITALS: BP_SYST 95
[2018-01-24 11:39] LABS: CALCIUM 7.9 mg/dL (8.4-11.0); CREATININE 0.28 mg/dL (0.55-1.30); POTASSIUM 3.5 mmol/L (3.5-5.1)
[2018-01-24 11:45] LABS: HEMATOCRIT 39.7 % (36-48); HEMOGLOBIN 13.8 g/dL (12.0-16.0); MEAN CORPUSCULAR HEMOGLOBIN 32 pg (27-31); MEAN CORPUSCULAR HGB CONC 35 % (32-36); MEAN CORPUSCULAR VOLUME 92 fL (79.0-98.0); PLATELET COUNT (AUTO) 256 K/uL (130-430); RED BLOOD CELL COUNT(AUTO) 4.31 MIL/uL (4.2-6.2); RED CELL DISTRIBUTION WIDTH 14.1 % (9.0-15.0)
[2018-01-24 11:53] LABS: WHITE BLOOD COUNT (AUTO) 10.3 K/uL (4.8-10.8)
[2018-01-24 12:23] LABS: ATYPICAL LYMPHOCYTES % 0 % (0-0); BAND % (MANUAL) 5 % (0-6); BASOPHILS % (MANUAL) 0 % (0-2); EOSINOPHILS % (MANUAL) 0 % (0-7); LYMPHOCYTES % (MANUAL) 28 % (20-46); MONOCYTES % (MANUAL) 9 % (0-11)
[2018-01-24 15:25] VITALS: BP_SYST 91
[2018-01-24] MEDS: ZOLPIDEM TARTRATE 5 MG TABLET GT SCH (18:44)
[2018-01-24 19:47] VITALS: BP_SYST 95
[2018-01-24] MEDS: LEVETIRACETAM GT SCH (21:08)
[2018-01-24] MEDS ORDERED: MAGNESIUM CITRATE 300 ML ORAL SOLUTION GT ONE (21:45)
[2018-01-24] MEDS ORDERED: NA PHOS,M-B/NA PHOS,DI-BA 118 ML (FLEET ENEMA) RC ONE (21:45)
[2018-01-25] MEDS: METOCLOPRAMIDE HCL 10 MG TABLET GT SCH ×5 (00:21→23:41)
[2018-01-25] MEDS: PIPERACILLIN/TAZO 3.375/DEX-IS 50 ML IV SCH ×5 (00:22→23:41)
[2018-01-25 01:25] VITALS: BP_SYST 103
[2018-01-25] MEDS: POTASSIUM CHLORIDE 20 MEQ in NACL 0.9% 1,000 ML IV SCH ×2 (03:44→18:29)
[2018-01-25 08:00] VITALS: BP_SYST 107
[2018-01-25] MEDS: ACETAMINOPHEN 650 MG/20.3 ML UDC GT SCH ×2 (09:07→21:03)
[2018-01-25] MEDS: CALCIUM 600/VIT D GT SCH ×2 (09:08→21:04)
[2018-01-25] MEDS: LACTULOSE 20 GM/30 ML UDC GT SCH ×2 (09:08→21:03)
[2018-01-25] MEDS: OXYBUTYNIN CHLORIDE 5 MG TABLET GT SCH ×2 (09:09→21:04)
[2018-01-25] MEDS: LEVETIRACETAM GT SCH ×2 (09:09→21:04)
[2018-01-25] MEDS: LACOSAMIDE 100 MG TABLET GT SCH ×2 (09:09→21:04)
[2018-01-25] MEDS ORDERED: NA PHOS,M-B/NA PHOS,DI-BA 118 ML (FLEET ENEMA) RC ONE (09:15)
[2018-01-25] MEDS ORDERED: MAGNESIUM CITRATE 300 ML ORAL SOLUTION PO ONE (09:15)
[2018-01-25 11:31] VITALS: BP_SYST 111
[2018-01-25 16:00] VITALS: BP_SYST 98
[2018-01-25] MEDS: ZOLPIDEM TARTRATE 5 MG TABLET GT SCH (17:24)
[2018-01-25 20:12] VITALS: BP_SYST 95
[2018-01-26] MEDS: METOCLOPRAMIDE HCL 10 MG TABLET GT SCH ×3 (05:14→17:16)
[2018-01-26] MEDS: PIPERACILLIN/TAZO 3.375/DEX-IS 50 ML IV SCH ×3 (05:16→17:16)
[2018-01-26 08:00] VITALS: BP_SYST 109
[2018-01-26] MEDS: LACTULOSE 20 GM/30 ML UDC GT SCH ×2 (09:07→20:28)
[2018-01-26] MEDS: CALCIUM 600/VIT D GT SCH ×2 (09:08→20:20)
[2018-01-26] MEDS: ACETAMINOPHEN 650 MG/20.3 ML UDC GT SCH ×2 (09:08→20:23)
[2018-01-26] MEDS: LACOSAMIDE 100 MG TABLET GT SCH ×2 (09:14→20:24)
[2018-01-26] MEDS: OXYBUTYNIN CHLORIDE 5 MG TABLET GT SCH ×2 (09:14→20:21)
[2018-01-26] MEDS: LEVETIRACETAM GT SCH ×2 (09:17→20:23)
[2018-01-26 12:00] VITALS: BP_SYST 107
[2018-01-26] MEDS: POTASSIUM CHLORIDE 20 MEQ in NACL 0.9% 1,000 ML IV SCH (12:03)
[2018-01-26 16:00] VITALS: BP_SYST 100
[2018-01-26] MEDS: ZOLPIDEM TARTRATE 5 MG TABLET GT SCH (17:16)
[2018-01-26 19:00] VITALS: BP_SYST 99
[2018-01-26 20:00] VITALS: BP_SYST 99
[2018-01-27] MEDS: METOCLOPRAMIDE HCL 10 MG TABLET GT SCH ×3 (00:22→12:30)
[2018-01-27] MEDS: PIPERACILLIN/TAZO 3.375/DEX-IS 50 ML IV SCH ×3 (00:22→12:30)
[2018-01-27 00:36] VITALS: BP_SYST 101
[2018-01-27] MEDS: POTASSIUM CHLORIDE 20 MEQ in NACL 0.9% 1,000 ML IV SCH (05:14)
[2018-01-27 07:55] VITALS: BP_SYST 118
[2018-01-27] MEDS: ACETAMINOPHEN 650 MG/20.3 ML UDC GT SCH (09:42)
[2018-01-27] MEDS: LACTULOSE 20 GM/30 ML UDC GT SCH (09:43)
[2018-01-27] MEDS: CALCIUM 600/VIT D GT SCH (09:43)
[2018-01-27] MEDS: OXYBUTYNIN CHLORIDE 5 MG TABLET GT SCH (09:43)
[2018-01-27] MEDS: LACOSAMIDE 100 MG TABLET GT SCH (09:43)
[2018-01-27] MEDS: LEVETIRACETAM GT SCH (09:44)
[2018-01-27 12:08] VITALS: BP_SYST 97
[2018-01-27 16:05] VITALS: BP_SYST 93
[2018-01-27] MEDS ORDERED: CIPR-211 GT (17:53)
[2018-01-27 18:03] VITALS: BP_SYST 93
== END 2018-01-27 18:50 | disposition home health service (06) | DRG 640 ==
LOC: SED 15:46 → STU 17:40
PROVIDERS: ADMIT Internal Medicine; ATTEND Family Medicine
DX: E87.1 Hypo-osmolality and hyponatremia (principal); G93.49 Other encephalopathy; K56.7 Ileus, unspecified; N31.9 Neuromuscular dysfunction of bladder, unspecified; Z93.1 Gastrostomy status; N39.0 Urinary tract infection, site not specified; E87.6 Hypokalemia; G40.909 Epilepsy, unspecified, not intractable, without status epilepticus; Z87.820 Personal history of traumatic brain injury; Z87.440 Personal history of urinary (tract) infections; Z90.49 Acquired absence of other specified parts of digestive tract
CPT/HCPCS: 36415; 70450-TC; 71045; 74018; 80048; 80053; 80307; 81000-TC; 82150-TC; 82542; 82550-TC; 83605; 83690-TC; 84484; 85007; 85025; 85027; 85610-TC; 85730-TC; 87040-TC; 87081; 87086; 87186-TC; 93005; 96365; 96368; 96375; 99285; G0482; J0696; J2405; J2543; J3480; J7030; J8597

== ENCOUNTER 2018-05-12 11:28 | Emergency (ER) | payer OTHER ==
[~2018-05-12 11:28] MED LIST changes: +CIPR-211 GT
[2018-05-12 11:30] VITALS: BP_SYST 118
--- NOTE | 2018-05-12 11:45 | NUR ---
pt brought to bed 1; family in bedside
--- NOTE | 2018-05-12 11:47 | NUR ---
42year old wheelchair bound female presented to ED acccompanied by mother and home healthcare aid with complaints of G TUBE IS CLOGGED, MOTHER STATES IT DID NOT FLUSH THIS AM; Gtube is 22Fr; family reports pt had initialy G-tube placement approximately 19 year ago; with recent G-tube replaced x6mos ago; awaiting for MD assess/darcieal
--- NOTE | 2018-05-12 11:50 | NUR ---
Dr. Ta at bedside for assess/eval; family at bedside
--- NOTE | 2018-05-12 12:06 | NUR ---
CXR being performed at bedside; pt randall
--- NOTE | 2018-05-12 12:15 | NUR ---
blood labs being performed at bedside; pt randall
[2018-05-12 12:44] LABS: BASOPHILS % (AUTO) 0.4 % (0.0-2.0); EOSINOPHILS # (AUTO) 0.2 K/uL (0.0-0.4); EOSINOPHILS % (AUTO) 1.7 % (0.0-4.0); HEMATOCRIT 41.8 % (36-48); HEMOGLOBIN 13.9 g/dL (12.0-16.0); LYMPHOCYTES # (AUTO) 1.6 K/uL (1.0-5.5); MEAN CORPUSCULAR HEMOGLOBIN 31 pg (27-31); MEAN CORPUSCULAR HGB CONC 33 % (32-36); MEAN CORPUSCULAR VOLUME 93 fL (79.0-98.0); MONOCYTES # (AUTO) 0.5 K/uL (0.0-1.0); MONOCYTES % (AUTO) 4.9 % (1.7-9.3); NEUTROPHILS # (AUTO) 7.4 K/uL (1.8-7.7); PLATELET COUNT (AUTO) 377 K/uL (130-430); RED BLOOD CELL COUNT(AUTO) 4.49 MIL/uL (4.2-6.2); RED CELL DISTRIBUTION WIDTH 13.2 % (9.0-15.0); WHITE BLOOD COUNT (AUTO) 9.7 K/uL (4.8-10.8)
--- NOTE | 2018-05-12 12:55 | NUR ---
pt has F/C in place; informed family MD ordered urine sample collection and would need to exchange for new F/C to collect specimen; family refuse at this time; aware
[2018-05-12 13:02] LABS: CALCIUM 9.3 mg/dL (8.4-11.0); CREATININE 0.36 mg/dL (0.55-1.30); POTASSIUM 3.8 mmol/L (3.5-5.1)
[2018-05-12 13:04] LABS: PROTHROMBIN TIME 9.9 SECS (9.5-12.5)
--- NOTE | 2018-05-12 13:10 | NUR ---
Dr. Ta at bedside replacing new G-tube 22Fr; pt randall; ordered to have repeat image to confirm placement
[2018-05-12 13:15] LABS: ALBUMIN 3.8 g/dL (3.4-4.8); TOTAL BILIRUBIN 0.3 mg/dL (0.0-1.0)
[2018-05-12] MEDS ORDERED: GASTROGRAFIN 120 ML ONE (13:23)
[2018-05-12 13:55] VITALS: BP_SYST 118
--- NOTE | 2018-05-12 13:55 | NUR ---
Patient given written and verbal discharge instructions and verbalizes understanding. ER MD discussed with patient the results and treatment provided. Patient in stable condition. ID arm band removed. No Rx given. Patient educated on pain management and to follow up with PMD. Pain Scale 0/10. Opportunity for questions provided and answered. Medication side effect fact sheet provided.
== END 2018-05-12 13:55 | disposition home or self-care (01) ==
LOC: SED 11:28
DX: Z43.1 Encounter for attention to gastrostomy (principal); Z86.73 Personal history of transient ischemic attack (TIA), and cerebral infarction without residual deficits; Z79.899 Other long term (current) drug therapy
CPT/HCPCS: 36415; 43760; 71045; 74240; 80053; 83605; 84484; 84702; 85025; 85610; 85730; 87040; 93005; 99285; Q9963

== ENCOUNTER 2018-05-23 21:10 | Emergency (ER) | payer OTHER ==
[~2018-05-23] VITALS: Ht 157.5 cm; Wt 65.8 kg
[2018-05-23 21:18] VITALS: BP_SYST 121
[2018-05-24 00:17] VITALS: BP_SYST 129
== END 2018-05-24 00:17 | disposition home or self-care (01) ==
LOC: SED 21:10
DX: Z46.6 Encounter for fitting and adjustment of urinary device (principal); Z86.73 Personal history of transient ischemic attack (TIA), and cerebral infarction without residual deficits; Z79.899 Other long term (current) drug therapy
CPT/HCPCS: 99284

== ENCOUNTER 2018-06-01 17:55 | Emergency (ER) | payer OTHER ==
[~2018-06-01] VITALS: Ht 160 cm; Wt 65.8 kg
[2018-06-01 18:00] VITALS: BP_SYST 134
[2018-06-01 19:34] LABS: BILIRUBIN,URINE NEGATIVE (NEGATIVE); BLOOD, URINE 1+ (NEGATIVE); CLARITY/URINE CLOUDY (CLEAR); COLOR,URINE YELLOW (YELLOW); GLUCOSE,URINE NEGATIVE (NEGATIVE); KETONES,URINE NEGATIVE (NEGATIVE); LEUKOCYTE ESTERASE ,URINE 3+ (NEGATIVE); NITRITE, URINE NEGATIVE (NEGATIVE); PH,URINE >=9.0 (5.0-8.0); PROTEIN URINE 1+ (NEGATIVE); UROBILINOGEN,URINE 0.2 (0.2-1.0)
[2018-06-01] MEDS ORDERED: CIPROFLOXACIN HCL 500 MG TABLET GT ONE (19:45)
[2018-06-01 19:46] LABS: BACTERIA,URINE MODERATE /HPF (None Seen)
[2018-06-01 19:47] LABS: MUCUS,URINE None Seen /LPF (None Seen); TRIPLE PHOSPHATE CRYSTAL,UR 30-50 /HPF (None Seen); URINE AMORPHOUS PHOSPHATES 3+ /HPF (None Seen)
[2018-06-01 20:10] VITALS: BP_SYST 134
== END 2018-06-01 20:10 | disposition home or self-care (01) ==
LOC: SED 17:55
DX: Z46.6 Encounter for fitting and adjustment of urinary device (principal); N39.0 Urinary tract infection, site not specified; Z79.899 Other long term (current) drug therapy; Z86.73 Personal history of transient ischemic attack (TIA), and cerebral infarction without residual deficits; Z90.49 Acquired absence of other specified parts of digestive tract
CPT/HCPCS: 81000-TC; 87086; 87186-TC; 99284

== ENCOUNTER 2018-06-07 18:48 | Inpatient (IN) | payer OTHER ==
[~2018-06-07] VITALS: Ht 160 cm; Wt 63.0 kg
[2018-06-07 18:53] VITALS: BP_SYST 134
[2018-06-07 20:12] LABS: BILIRUBIN,URINE NEGATIVE (NEGATIVE); CLARITY/URINE SL CLOUDY (CLEAR); COLOR,URINE YELLOW (YELLOW); GLUCOSE,URINE NEGATIVE (NEGATIVE); KETONES,URINE NEGATIVE (NEGATIVE); LEUKOCYTE ESTERASE ,URINE TRACE (NEGATIVE); NITRITE, URINE NEGATIVE (NEGATIVE); PROTEIN URINE 2+ (NEGATIVE); UROBILINOGEN,URINE 0.2 (0.2-1.0)
[2018-06-07 20:13] LABS: BLOOD, URINE TRACE (NEGATIVE)
[2018-06-07] MEDS ORDERED: ONDANSETRON HCL 4 MG/2 ML VIAL IVP ONE (20:15)
[2018-06-07] MEDS ORDERED: NACL 0.9% 1,000 ML IV ONE ×2 (20:15→21:00)
[2018-06-07 20:19] LABS: RBC,URINE 0-3 /HPF (0-3)
[2018-06-07 20:20] LABS: BACTERIA,URINE MODERATE /HPF (None Seen); MUCUS,URINE 1+ /LPF (None Seen)
[2018-06-07 20:25] LABS: BASOPHILS # (AUTO) 0.1 K/uL (0.0-0.2); BASOPHILS % (AUTO) 0.5 % (0.0-2.0); EOSINOPHILS % (AUTO) 0.1 % (0.0-4.0); HEMATOCRIT 43.8 % (36-48); HEMOGLOBIN 14.7 g/dL (12.0-16.0); LYMPHOCYTES # (AUTO) 0.9 K/uL (1.0-5.5); LYMPHOCYTES % (AUTO) 5.7 % (20.5-51.5); MEAN CORPUSCULAR HEMOGLOBIN 30 pg (27-31); MEAN CORPUSCULAR HGB CONC 34 % (32-36); MEAN CORPUSCULAR VOLUME 90 fL (79.0-98.0); MONOCYTES # (AUTO) 0.4 K/uL (0.0-1.0); MONOCYTES % (AUTO) 2.5 % (1.7-9.3); NEUTROPHILS # (AUTO) 13.6 K/uL (1.8-7.7); NEUTROPHILS % (AUTO) 91.2 % (40.0-70.0); PLATELET COUNT (AUTO) 336 K/uL (130-430); RED BLOOD CELL COUNT(AUTO) 4.88 MIL/uL (4.2-6.2)
[2018-06-07 20:37] LABS: CALCIUM 9.1 mg/dL (8.4-11.0); CREATININE 0.39 mg/dL (0.55-1.30); POTASSIUM 3.4 mmol/L (3.5-5.1)
[2018-06-07 20:42] LABS: ALBUMIN 3.8 g/dL (3.4-4.8); TOTAL BILIRUBIN 0.3 mg/dL (0.0-1.0)
[2018-06-07] MEDS ORDERED: CEFEPIME 1 GM in D5W 50 ML IV ONE (21:15)
[2018-06-07] MEDS ORDERED: METO-290 GT (21:33)
[2018-06-07] MEDS ORDERED: CEFEPIME 1 GM/VIAL (MAXIPIME) ONE (21:50)
[2018-06-07] MEDS ORDERED: LACTULOSE 20 GM/30 ML UDC GT ONE (22:00)
[2018-06-07 22:19] VITALS: BP_SYST 135
[2018-06-08] MEDS ORDERED: LORazepam 2 MG/ML VIAL IVP PRN (00:45)
[2018-06-08 01:43] VITALS: BP_SYST 158
[2018-06-08] MEDS: KCL 20 mEq in D5/0.45NS 1000mL 1,000 ML IV SCH ×3 (03:21→15:07)
[2018-06-08 08:07] VITALS: BP_SYST 131
[2018-06-08] MEDS: LevETIRAcetam 100 MG/ML UDC ORAL LIQUID GT SCH ×2 (09:00→17:52)
[2018-06-08] MEDS: ACETAMINOPHEN 650 MG/20.3 ML UDC GT SCH ×2 (09:00→21:23)
[2018-06-08] MEDS: LACTULOSE 20 GM/30 ML UDC GT SCH ×2 (09:00→21:22)
[2018-06-08] MEDS: MEROPENEM 1 GM in NS 100 ML IV SCH ×2 (10:24→21:22)
[2018-06-08] MEDS: METOCLOPRAMIDE HCL 10 MG TABLET GT SCH (11:18)
[2018-06-08] MEDS: LACOSAMIDE 100 MG TABLET GT SCH ×2 (11:18→21:23)
[2018-06-08] MEDS: OXYBUTYNIN CHLORIDE 5 MG TABLET GT SCH ×2 (11:18→21:23)
[2018-06-08 12:32] VITALS: BP_SYST 124
[2018-06-08 16:30] VITALS: BP_SYST 116
[2018-06-08] MEDS: ZOLPIDEM TARTRATE 5 MG TABLET GT SCH (17:51)
[2018-06-08 19:20] VITALS: BP_SYST 144
[2018-06-08 20:30] VITALS: BP_SYST 125
[2018-06-08] MEDS ORDERED: POTASSIUM CHLORIDE 20 MEQ/PKT PACKET PO SCH (21:00)
[2018-06-09] VITALS (8 sets, daily range): BP systolic 126–165
[2018-06-09] MEDS: KCL 20 mEq in D5/0.45NS 1000mL 1,000 ML IV SCH ×2 (03:17→13:42)
[2018-06-09 06:32] LABS: CALCIUM 8.3 mg/dL (8.4-11.0); CREATININE 0.35 mg/dL (0.55-1.30); POTASSIUM 3.6 mmol/L (3.5-5.1)
[2018-06-09 07:58] LABS: BASOPHILS % (AUTO) 0.3 % (0.0-2.0); EOSINOPHILS % (AUTO) 0.4 % (0.0-4.0); HEMATOCRIT 39.7 % (36-48); HEMOGLOBIN 13.6 g/dL (12.0-16.0); LYMPHOCYTES % (AUTO) 10.1 % (20.5-51.5); MEAN CORPUSCULAR HEMOGLOBIN 31 pg (27-31); MEAN CORPUSCULAR HGB CONC 34 % (32-36); MEAN CORPUSCULAR VOLUME 90 fL (79.0-98.0); MONOCYTES # (AUTO) 1.1 K/uL (0.0-1.0); MONOCYTES % (AUTO) 11.6 % (1.7-9.3); NEUTROPHILS # (AUTO) 7.6 K/uL (1.8-7.7); NEUTROPHILS % (AUTO) 77.6 % (40.0-70.0); PLATELET COUNT (AUTO) 266 K/uL (130-430); RED BLOOD CELL COUNT(AUTO) 4.41 MIL/uL (4.2-6.2); RED CELL DISTRIBUTION WIDTH 13.7 % (9.0-15.0); WHITE BLOOD COUNT (AUTO) 9.7 K/uL (4.8-10.8)
[2018-06-09] MEDS: METOCLOPRAMIDE HCL 10 MG TABLET GT SCH (08:50)
[2018-06-09] MEDS: LACOSAMIDE 100 MG TABLET GT SCH ×2 (08:51→21:24)
[2018-06-09] MEDS: ACETAMINOPHEN 650 MG/20.3 ML UDC GT SCH ×2 (08:51→21:32)
[2018-06-09] MEDS: LACTULOSE 20 GM/30 ML UDC GT SCH ×2 (08:52→21:24)
[2018-06-09] MEDS: OXYBUTYNIN CHLORIDE 5 MG TABLET GT SCH ×2 (08:52→21:24)
[2018-06-09] MEDS: MEROPENEM 1 GM in NS 100 ML IV SCH ×2 (08:54→21:27)
[2018-06-09] MEDS: ENOXAPARIN SODIUM 40 MG/0.4 ML SYRINGE SUBCUT SCH (08:55)
[2018-06-09] MEDS: LevETIRAcetam 100 MG/ML UDC ORAL LIQUID GT SCH ×2 (08:57→17:48)
[2018-06-09] MEDS: VANCOMYCIN HCL 750 MG in NS 250 ML IV SCH (16:09)
[2018-06-09] MEDS: ZOLPIDEM TARTRATE 5 MG TABLET GT SCH (17:47)
[2018-06-09] MEDS: MUPIROCIN 2% TOPICAL OINTMENT 22 GM NS SCH (21:26)
[2018-06-10 00:55] VITALS: BP_SYST 127
[2018-06-10] MEDS: VANCOMYCIN HCL 750 MG in NS 250 ML IV SCH (04:25)
[2018-06-10] MEDS: KCL 20 mEq in D5/0.45NS 1000mL 1,000 ML IV SCH ×2 (04:26→17:05)
[2018-06-10 08:00] VITALS: BP_SYST 132
[2018-06-10] MEDS: MUPIROCIN 2% TOPICAL OINTMENT 22 GM NS SCH ×2 (08:51→21:20)
[2018-06-10] MEDS: METOCLOPRAMIDE HCL 10 MG TABLET GT SCH (08:52)
[2018-06-10] MEDS: LACTULOSE 20 GM/30 ML UDC GT SCH ×2 (08:52→21:20)
[2018-06-10] MEDS: LACOSAMIDE 100 MG TABLET GT SCH ×2 (08:52→21:19)
[2018-06-10] MEDS: ACETAMINOPHEN 650 MG/20.3 ML UDC GT SCH ×2 (08:52→21:20)
[2018-06-10] MEDS: OXYBUTYNIN CHLORIDE 5 MG TABLET GT SCH ×2 (08:52→21:19)
[2018-06-10] MEDS: LevETIRAcetam 100 MG/ML UDC ORAL LIQUID GT SCH ×2 (08:53→17:05)
[2018-06-10] MEDS: MEROPENEM 1 GM in NS 100 ML IV SCH (08:54)
[2018-06-10] MEDS: ENOXAPARIN SODIUM 40 MG/0.4 ML SYRINGE SUBCUT SCH (09:02)
[2018-06-10 11:10] VITALS: BP_SYST 119
[2018-06-10 15:08] VITALS: BP_SYST 120
[2018-06-10] MEDS ORDERED: cefTRIAXone 1 GM in D5W 50 ML IV ONE (15:15)
[2018-06-10] MEDS: ZOLPIDEM TARTRATE 5 MG TABLET GT SCH (17:08)
[2018-06-10 19:50] VITALS: BP_SYST 123
[2018-06-10] MEDS: metroNIDAZOLE 250 mg/NS 50 ML IV SCH (21:21)
[2018-06-10 23:35] VITALS: BP_SYST 118
[2018-06-11] MEDS: KCL 20 mEq in D5/0.45NS 1000mL 1,000 ML IV SCH ×2 (04:44→17:31)
[2018-06-11] MEDS: metroNIDAZOLE 250 mg/NS 50 ML IV SCH ×3 (05:01→21:28)
[2018-06-11 07:52] VITALS: BP_SYST 113
[2018-06-11] MEDS: ACETAMINOPHEN 650 MG/20.3 ML UDC GT SCH ×2 (09:24→21:27)
[2018-06-11] MEDS: OXYBUTYNIN CHLORIDE 5 MG TABLET GT SCH ×2 (09:25→21:27)
[2018-06-11] MEDS: LACTULOSE 20 GM/30 ML UDC GT SCH ×2 (09:25→21:27)
[2018-06-11] MEDS: LACOSAMIDE 100 MG TABLET GT SCH ×2 (09:25→21:27)
[2018-06-11] MEDS: METOCLOPRAMIDE HCL 10 MG TABLET GT SCH (09:25)
[2018-06-11] MEDS: cefTRIAXone 1 GM in D5W 50 ML IV SCH (09:26)
[2018-06-11] MEDS: ENOXAPARIN SODIUM 40 MG/0.4 ML SYRINGE SUBCUT SCH (09:28)
[2018-06-11] MEDS: MUPIROCIN 2% TOPICAL OINTMENT 22 GM NS SCH ×2 (09:30→21:28)
[2018-06-11] MEDS: LevETIRAcetam 100 MG/ML UDC ORAL LIQUID GT SCH ×2 (09:31→17:30)
[2018-06-11 12:21] VITALS: BP_SYST 120
[2018-06-11 16:19] VITALS: BP_SYST 106
[2018-06-11] MEDS: ZOLPIDEM TARTRATE 5 MG TABLET GT SCH (17:29)
[2018-06-11 20:00] VITALS: BP_SYST 111
[2018-06-12 00:41] VITALS: BP_SYST 111
[2018-06-12] MEDS: metroNIDAZOLE 250 mg/NS 50 ML IV SCH ×3 (05:02→21:07)
[2018-06-12] MEDS: KCL 20 mEq in D5/0.45NS 1000mL 1,000 ML IV SCH ×2 (05:02→17:27)
[2018-06-12 07:34] VITALS: BP_SYST 112
[2018-06-12 07:35] VITALS: BP_SYST 111
[2018-06-12] MEDS: cefTRIAXone 1 GM in D5W 50 ML IV SCH (09:05)
[2018-06-12] MEDS: MUPIROCIN 2% TOPICAL OINTMENT 22 GM NS SCH ×2 (09:06→21:06)
[2018-06-12] MEDS: LevETIRAcetam 100 MG/ML UDC ORAL LIQUID GT SCH ×2 (09:06→17:29)
[2018-06-12] MEDS: ACETAMINOPHEN 650 MG/20.3 ML UDC GT SCH ×2 (09:07→21:07)
[2018-06-12] MEDS: LACTULOSE 20 GM/30 ML UDC GT SCH ×2 (09:07→21:07)
[2018-06-12] MEDS: LACOSAMIDE 100 MG TABLET GT SCH ×2 (09:07→21:07)
[2018-06-12] MEDS: METOCLOPRAMIDE HCL 10 MG TABLET GT SCH (09:07)
[2018-06-12] MEDS: OXYBUTYNIN CHLORIDE 5 MG TABLET GT SCH ×2 (09:07→21:07)
[2018-06-12] MEDS: ENOXAPARIN SODIUM 40 MG/0.4 ML SYRINGE SUBCUT SCH (09:10)
[2018-06-12 12:02] VITALS: BP_SYST 109
[2018-06-12 16:15] VITALS: BP_SYST 111
[2018-06-12] MEDS: ZOLPIDEM TARTRATE 5 MG TABLET GT SCH (17:28)
[2018-06-12 19:59] VITALS: BP_SYST 114
[2018-06-13 00:40] VITALS: BP_SYST 118
[2018-06-13] MEDS: KCL 20 mEq in D5/0.45NS 1000mL 1,000 ML IV SCH ×2 (03:06→14:18)
[2018-06-13 03:18] VITALS: BP_SYST 118
[2018-06-13] MEDS: metroNIDAZOLE 250 mg/NS 50 ML IV SCH ×3 (06:23→22:19)
[2018-06-13 08:05] VITALS: BP_SYST 125
[2018-06-13] MEDS: cefTRIAXone 1 GM in D5W 50 ML IV SCH (09:10)
[2018-06-13] MEDS: MUPIROCIN 2% TOPICAL OINTMENT 22 GM NS SCH ×2 (09:10→22:20)
[2018-06-13] MEDS: ENOXAPARIN SODIUM 40 MG/0.4 ML SYRINGE SUBCUT SCH (09:11)
[2018-06-13] MEDS: LACOSAMIDE 100 MG TABLET GT SCH ×2 (09:12→22:19)
[2018-06-13] MEDS: METOCLOPRAMIDE HCL 10 MG TABLET GT SCH (09:12)
[2018-06-13] MEDS: OXYBUTYNIN CHLORIDE 5 MG TABLET GT SCH ×2 (09:12→22:19)
[2018-06-13] MEDS: ACETAMINOPHEN 650 MG/20.3 ML UDC GT SCH ×2 (09:12→22:19)
[2018-06-13] MEDS: LACTULOSE 20 GM/30 ML UDC GT SCH ×2 (09:12→22:19)
[2018-06-13] MEDS: LevETIRAcetam 100 MG/ML UDC ORAL LIQUID GT SCH ×2 (09:14→17:07)
[2018-06-13 12:39] VITALS: BP_SYST 107
[2018-06-13 16:17] VITALS: BP_SYST 112
[2018-06-13] MEDS: ZOLPIDEM TARTRATE 5 MG TABLET GT SCH (17:07)
[2018-06-13] MEDS ORDERED: MENTHOL/ZINC OXIDE 113 GM OINT. TP PRN (18:45)
[2018-06-13 19:33] VITALS: BP_SYST 113
[2018-06-14] VITALS: BP_SYST 121
[2018-06-14] MEDS: KCL 20 mEq in D5/0.45NS 1000mL 1,000 ML IV SCH ×2 (05:56→13:18)
[2018-06-14 06:26] LABS: BASOPHILS # (AUTO) 0.1 K/uL (0.0-0.2); BASOPHILS % (AUTO) 0.7 % (0.0-2.0); EOSINOPHILS # (AUTO) 0.2 K/uL (0.0-0.4); EOSINOPHILS % (AUTO) 2.3 % (0.0-4.0); HEMATOCRIT 36.7 % (36-48); HEMOGLOBIN 12.4 g/dL (12.0-16.0); LYMPHOCYTES # (AUTO) 1.7 K/uL (1.0-5.5); LYMPHOCYTES % (AUTO) 22.1 % (20.5-51.5); MEAN CORPUSCULAR HEMOGLOBIN 30 pg (27-31); MEAN CORPUSCULAR HGB CONC 34 % (32-36); MEAN CORPUSCULAR VOLUME 89 fL (79.0-98.0); MONOCYTES # (AUTO) 0.8 K/uL (0.0-1.0); MONOCYTES % (AUTO) 10.7 % (1.7-9.3); NEUTROPHILS # (AUTO) 4.8 K/uL (1.8-7.7); NEUTROPHILS % (AUTO) 64.2 % (40.0-70.0); PLATELET COUNT (AUTO) 267 K/uL (130-430); RED CELL DISTRIBUTION WIDTH 13.7 % (9.0-15.0); WHITE BLOOD COUNT (AUTO) 7.6 K/uL (4.8-10.8)
[2018-06-14] MEDS: metroNIDAZOLE 250 mg/NS 50 ML IV SCH ×2 (06:26→13:19)
[2018-06-14 06:55] LABS: ALBUMIN 2.8 g/dL (3.4-4.8); CALCIUM 8.5 mg/dL (8.4-11.0); CREATININE 0.27 mg/dL (0.55-1.30); TOTAL BILIRUBIN 0.3 mg/dL (0.0-1.0)
[2018-06-14 08:02] VITALS: BP_SYST 113
[2018-06-14] MEDS ORDERED: MENTHOL/ZINC OXIDE 113 GM OINT. TP SCH (09:00)
[2018-06-14] MEDS ORDERED: BALSAM PERU/CASTOR OIL 60 GM OINT...G. TP SCH (09:00)
[2018-06-14] MEDS: LACTULOSE 20 GM/30 ML UDC GT SCH (09:22)
[2018-06-14] MEDS: OXYBUTYNIN CHLORIDE 5 MG TABLET GT SCH (09:23)
[2018-06-14] MEDS: LACOSAMIDE 100 MG TABLET GT SCH (09:23)
[2018-06-14] MEDS: cefTRIAXone 1 GM in D5W 50 ML IV SCH (09:23)
[2018-06-14] MEDS: METOCLOPRAMIDE HCL 10 MG TABLET GT SCH (09:23)
[2018-06-14] MEDS: MUPIROCIN 2% TOPICAL OINTMENT 22 GM NS SCH (09:23)
[2018-06-14] MEDS: LevETIRAcetam 100 MG/ML UDC ORAL LIQUID GT SCH (09:24)
[2018-06-14] MEDS: ACETAMINOPHEN 650 MG/20.3 ML UDC GT SCH (09:27)
[2018-06-14] MEDS: ENOXAPARIN SODIUM 40 MG/0.4 ML SYRINGE SUBCUT SCH (09:29)
[2018-06-14 13:04] VITALS: BP_SYST 119
[2018-06-14 16:05] VITALS: BP_SYST 119
[2018-06-14 17:24] VITALS: BP_SYST 128
== END 2018-06-14 19:21 | disposition home health service (06) | DRG 871 ==
LOC: SED 18:48 → STU 21:33
PROVIDERS: ADMIT Family Medicine; ATTEND Family Medicine
PROC: 05HY33Z Insertion of Infusion Device into Upper Vein, Percutaneous Approach (ICD-10-PCS; principal; 2018-06-09)
PROC: B54MZZA Ultrasonography of Right Upper Extremity Veins, Guidance (ICD-10-PCS; 2018-06-09)
DX: A41.9 Sepsis, unspecified organism (principal); G82.50 Quadriplegia, unspecified; J69.0 Pneumonitis due to inhalation of food and vomit; E43 Unspecified severe protein-calorie malnutrition; N39.0 Urinary tract infection, site not specified; E87.1 Hypo-osmolality and hyponatremia; D64.9 Anemia, unspecified; G40.909 Epilepsy, unspecified, not intractable, without status epilepticus; K56.41 Fecal impaction; N31.9 Neuromuscular dysfunction of bladder, unspecified; Z22.322 Carrier or suspected carrier of Methicillin resistant Staphylococcus aureus; Z78.9 Other specified health status; Z93.1 Gastrostomy status; Z87.820 Personal history of traumatic brain injury; Z90.49 Acquired absence of other specified parts of digestive tract; Z68.24 Body mass index [BMI] 24.0-24.9, adult
CPT/HCPCS: 36415; 80048; 80053; 81000-TC; 83605; 85025; 87040-TC; 87081; 87086; 93005; 94640; 94760; 96361; 96365; 96375; 99285; A6261; C1751; J0692; J0696; J1650; J2060; J2185; J2405; J3370; J3490; J7030; J7050; J7060; J8597

== ENCOUNTER 2019-06-03 13:14 | Inpatient (IN) | payer OTHER ==
[~2019-06-03] VITALS: Ht 160 cm; Wt 76.2 kg
[~2019-06-03 13:14] MED LIST changes: -CIPR-211 GT; -LACT10SO66 GT; -METH1TAB35 GT
[2019-06-03 13:19] VITALS: BP_SYST 123
[2019-06-03 14:06] LABS: BILIRUBIN,URINE NEGATIVE (NEGATIVE); BLOOD, URINE NEGATIVE (NEGATIVE); CLARITY/URINE SL CLOUDY (CLEAR); COLOR,URINE YELLOW (YELLOW); GLUCOSE,URINE NEGATIVE (NEGATIVE); KETONES,URINE NEGATIVE (NEGATIVE); LEUKOCYTE ESTERASE ,URINE 3+ (NEGATIVE); NITRITE, URINE POSITIVE (NEGATIVE); PROTEIN URINE NEGATIVE (NEGATIVE); UROBILINOGEN,URINE 0.2 (0.2-1.0)
[2019-06-03 14:10] LABS: BACTERIA,URINE MODERATE /HPF (None Seen); RBC,URINE 0-3 /HPF (0-3)
[2019-06-03 14:11] LABS: URINE AMORPHOUS URATE 2+ /HPF (None Seen)
[2019-06-03 14:12] LABS: BASOPHILS % (AUTO) 0.3 % (0.0-2.0); EOSINOPHILS # (AUTO) 0.1 K/uL (0.0-0.4); EOSINOPHILS % (AUTO) 1.2 % (0.0-4.0); HEMATOCRIT 40.2 % (36-48); HEMOGLOBIN 13.9 g/dL (12.0-16.0); LYMPHOCYTES # (AUTO) 2.2 K/uL (1.0-5.5); LYMPHOCYTES % (AUTO) 22.9 % (20.5-51.5); MEAN CORPUSCULAR HEMOGLOBIN 31 pg (27-31); MEAN CORPUSCULAR HGB CONC 35 % (32-36); MEAN CORPUSCULAR VOLUME 90 fL (79.0-98.0); MONOCYTES # (AUTO) 0.6 K/uL (0.0-1.0); MONOCYTES % (AUTO) 5.8 % (1.7-9.3); NEUTROPHILS # (AUTO) 6.7 K/uL (1.8-7.7); NEUTROPHILS % (AUTO) 69.8 % (40.0-70.0); PLATELET COUNT (AUTO) 340 K/uL (130-430); WHITE BLOOD COUNT (AUTO) 9.6 K/uL (4.8-10.8)
[2019-06-03 14:13] LABS: INR 0.9 (0.8-1.2); PROTHROMBIN TIME 9.2 SECS (9.5-12.5)
[2019-06-03 14:19] LABS: CALCIUM 8.4 mg/dL (8.4-11.0); CREATININE 0.32 mg/dL (0.55-1.30); POTASSIUM 3.8 mmol/L (3.5-5.1)
[2019-06-03 14:25] LABS: TOTAL BILIRUBIN 0.3 mg/dL (0.0-1.0)
[2019-06-03] MEDS ORDERED: AMPICILLIN SODIUM/SULBACTAM NA 3 GM VIAL IM ONE (15:30)
[2019-06-03] MEDS ORDERED: AMPICILLIN SODIUM/SULBACTAM NA 3 GM in NS 100 ML IV ONE (16:30)
[2019-06-03] MEDS ORDERED: AMPICILLIN SODIUM/SULBACTAM NA 3 GM VIAL ONE (16:51)
[2019-06-03 17:20] VITALS: BP_SYST 109
[2019-06-03] MEDS ORDERED: ACETAMINOPHEN 650 MG SUPP.RECT RC PRN (19:45)
[2019-06-03] MEDS ORDERED: LORazepam 2 MG/ML VIAL IVP PRN (19:45)
[2019-06-03] MEDS ORDERED: NA PHOS,M-B/NA PHOS,DI-BA 118 ML (FLEET ENEMA) RC ONE (19:45)
[2019-06-03] MEDS ORDERED: KCL 20 mEq in D5/0.45NS 1000mL 1,000 ML IV ONE (19:48)
[2019-06-03] MEDS: KCL 20 mEq in D5/0.45NS 1000mL 1,000 ML IV SCH (19:49)
[2019-06-03] MEDS ORDERED: AMPICILLIN SODIUM/SULBACTAM NA 1.5 GM VIAL ONE (20:52)
[2019-06-03] MEDS: levETIRAcetam 500 MG in NS 100 ML IV SCH (21:16)
[2019-06-04 00:21] VITALS: BP_SYST 96
[2019-06-04] MEDS: AMPICILLIN SODIUM/SULBACTAM NA 1.5 GM in NS 50 ML IV SCH ×5 (00:45→23:05)
[2019-06-04] MEDS: KCL 20 mEq in D5/0.45NS 1000mL 1,000 ML IV SCH ×3 (02:15→22:57)
[2019-06-04] MEDS ORDERED: AMPICILLIN SODIUM/SULBACTAM NA 1.5 GM VIAL ONE (06:42)
[2019-06-04 07:45] VITALS: BP_SYST 106
[2019-06-04] MEDS: levETIRAcetam 500 MG in NS 100 ML IV SCH ×2 (08:27→20:27)
[2019-06-04 12:30] VITALS: BP_SYST 109
[2019-06-04] MEDS ORDERED: LACTULOSE 20 GM/30 ML UDC GT ONE (13:30)
[2019-06-04 16:21] VITALS: BP_SYST 134
[2019-06-04] MEDS ORDERED: NA PHOS,M-B/NA PHOS,DI-BA 118 ML (FLEET ENEMA) RC ONE (18:15)
[2019-06-04] MEDS ORDERED: MAGNESIUM CITRATE 300 ML ORAL SOLUTION GT ONE (18:15)
[2019-06-04] MEDS: BISACODYL 10 MG/SUPPOSITORY RC SCH (18:41)
[2019-06-04] MEDS ORDERED: BISACODYL 10 MG/SUPPOSITORY RC ONE (18:52)
[2019-06-04] MEDS ORDERED: KCL 20 mEq in D5/0.45NS 1000mL 1,000 ML IV ONE (23:07)
[2019-06-05 00:10] VITALS: BP_SYST 109
[2019-06-05] MEDS: AMPICILLIN SODIUM/SULBACTAM NA 1.5 GM in NS 50 ML IV SCH ×3 (05:21→17:18)
[2019-06-05 08:00] VITALS: BP_SYST 104
[2019-06-05] MEDS: LACTULOSE 20 GM/30 ML UDC GT SCH (09:20)
[2019-06-05] MEDS: BISACODYL 10 MG/SUPPOSITORY RC SCH (09:20)
[2019-06-05] MEDS: levETIRAcetam 500 MG in NS 100 ML IV SCH ×2 (09:21→21:21)
[2019-06-05] MEDS: KCL 20 mEq in D5/0.45NS 1000mL 1,000 ML IV SCH ×2 (10:58→22:46)
[2019-06-05 11:12] VITALS: BP_SYST 128
[2019-06-05 15:02] VITALS: BP_SYST 124
[2019-06-05 20:00] VITALS: BP_SYST 128
[2019-06-06] MEDS: AMPICILLIN SODIUM/SULBACTAM NA 1.5 GM in NS 50 ML IV SCH ×2 (00:10→05:49)
[2019-06-06 02:12] VITALS: BP_SYST 113
[2019-06-06 08:00] VITALS: BP_SYST 126
[2019-06-06] MEDS: LACTULOSE 20 GM/30 ML UDC GT SCH (08:23)
[2019-06-06] MEDS: levETIRAcetam 500 MG in NS 100 ML IV SCH ×2 (08:23→21:32)
[2019-06-06] MEDS: BISACODYL 10 MG/SUPPOSITORY RC SCH (08:24)
[2019-06-06 11:18] VITALS: BP_SYST 120
[2019-06-06] MEDS ORDERED: BALSAM PERU/CASTOR OIL 60 GM OINT...G. TP ONE (12:15)
[2019-06-06] MEDS ORDERED: MENTHOL/ZINC OXIDE 113 GM OINT. TP PRN (12:15)
[2019-06-06] MEDS ORDERED: PIPERACILLIN/TAZO 3.375/DEX-IS 50 ML IV ONE (15:00)
[2019-06-06 15:22] VITALS: BP_SYST 133
[2019-06-06 20:00] VITALS: BP_SYST 132; BP_SYST 138
[2019-06-06 20:49] LABS: PROTHROMBIN TIME 10.4 SECS (9.5-12.5)
[2019-06-06] MEDS: KCL 20 mEq in D5/0.45NS 1000mL 1,000 ML IV SCH (21:31)
[2019-06-07 01:10] VITALS: BP_SYST 168
[2019-06-07] MEDS: PIPERACILLIN/TAZO 3.375/DEX-IS 50 ML IV SCH ×3 (01:47→12:10)
[2019-06-07 08:00] VITALS: BP_SYST 137
[2019-06-07] MEDS: KCL 20 mEq in D5/0.45NS 1000mL 1,000 ML IV SCH (08:24)
[2019-06-07] MEDS: BISACODYL 10 MG/SUPPOSITORY RC SCH (08:24)
[2019-06-07] MEDS: LACTULOSE 20 GM/30 ML UDC GT SCH (08:24)
[2019-06-07] MEDS: levETIRAcetam 500 MG in NS 100 ML IV SCH (08:26)
[2019-06-07] MEDS ORDERED: BALSAM PERU/CASTOR OIL 60 GM OINT...G. TP SCH (09:00)
[2019-06-07] MEDS ORDERED: MINERAL OIL 30 ML UDC PO SCH (09:00)
[2019-06-07 12:30] VITALS: BP_SYST 150
[2019-06-07 16:54] VITALS: BP_SYST 151
[2019-06-07 17:32] VITALS: BP_SYST 150
== END 2019-06-07 18:15 | DRG 603 ==
LOC: SED 13:14 → STU 16:09
PROVIDERS: ADMIT Family Medicine; ATTEND Family Medicine
PROC: 05H633Z Insertion of Infusion Device into Left Subclavian Vein, Percutaneous Approach (ICD-10-PCS; principal; 2019-06-06)
PROC: B547ZZA Ultrasonography of Left Subclavian Vein, Guidance (ICD-10-PCS; 2019-06-06)
DX: L03.311 Cellulitis of abdominal wall (principal); N39.0 Urinary tract infection, site not specified; G40.909 Epilepsy, unspecified, not intractable, without status epilepticus; K56.41 Fecal impaction; R13.10 Dysphagia, unspecified; B96.4 Proteus (mirabilis) (morganii) as the cause of diseases classified elsewhere; B96.5 Pseudomonas (aeruginosa) (mallei) (pseudomallei) as the cause of diseases classified elsewhere; Z79.899 Other long term (current) drug therapy; Z86.73 Personal history of transient ischemic attack (TIA), and cerebral infarction without residual deficits; Z87.440 Personal history of urinary (tract) infections; Z93.0 Tracheostomy status; Z93.1 Gastrostomy status
CPT/HCPCS: 36415; 71045; 74018; 80053; 81000-TC; 83605; 83690-TC; 85025; 85610-TC; 85730-TC; 87040-TC; 87081; 87086; 87186-TC; 93005; 96365; 99285; C1751; C1769; G0378; J0295; J1953; J2543

== ENCOUNTER 2019-11-27 16:18 | Emergency (ER) | payer OTHER ==
[~2019-11-27] VITALS: Ht 160 cm; Wt 68.0 kg
[2019-11-27 16:32] VITALS: BP_SYST 107
[2019-11-27 17:05] VITALS: BP_SYST 107
[2019-11-27] MEDS ORDERED: GASTROGRAFIN 120 ML ONE (17:05)
== END 2019-11-27 17:05 | disposition home or self-care (01) ==
LOC: SED 16:18
DX: K94.23 Gastrostomy malfunction (principal); N28.9 Disorder of kidney and ureter, unspecified; Z86.79 Personal history of other diseases of the circulatory system; Z87.440 Personal history of urinary (tract) infections; Z79.899 Other long term (current) drug therapy
CPT/HCPCS: 43762; 74240; 99284; Q9963

== ENCOUNTER 2019-11-29 20:36 | Emergency (ER) | payer OTHER ==
[~2019-11-29] VITALS: Ht 160 cm; Wt 68.0 kg
[2019-11-29 20:36] VITALS: BP_SYST 118
--- NOTE | 2019-11-29 20:36 | NUR ---
Patient to ER bed 5 to gown for evaluation. Side rails up. Report given to Gabriel MCCORD.
--- NOTE | 2019-11-29 20:50 | NUR ---
Patient came into ER due to leaking GTUBE. Site is covered with 4x4 gauze. Noticeable dampness on 4x4 gauze with yellow clear drainage. No signs of acute bleeding. aware.
--- NOTE | 2019-11-29 20:55 | NUR ---
ER at bedside examining patient.
--- NOTE | 2019-11-29 23:00 | NUR ---
MD at bedside replacing GTUBE with 18 afghan. Aseptic technique used. Baloon inflated with 15 CC. Patient tolerated without issues or complaint.
--- NOTE | 2019-11-29 23:42 | NUR ---
Patient with radiology at bedside. Completing xray of abd to confirm gtube placement. , accompanied by radstaff.
[2019-11-29] MEDS ORDERED: GASTROGRAFIN 120 ML ONE (23:47)
[2019-11-30 01:24] VITALS: BP_SYST 118
--- NOTE | 2019-11-30 01:25 | NUR ---
Patient given written and verbal discharge instructions and verbalizes understanding. ER MD discussed with patient the results and treatment provided. Patient in stable condition. ID arm band removed. Patient educated on pain management and to follow up with PMD. Pain Scale 0/10. Opportunity for questions provided and answered. Medication side effect fact sheet provided.
== END 2019-11-30 01:25 | disposition home or self-care (01) ==
LOC: SED 20:36
DX: K94.23 Gastrostomy malfunction (principal); N28.9 Disorder of kidney and ureter, unspecified; Z87.440 Personal history of urinary (tract) infections; Z86.79 Personal history of other diseases of the circulatory system; Z79.899 Other long term (current) drug therapy
CPT/HCPCS: 43762; 74240; 99284; Q9963

== ENCOUNTER 2020-08-07 11:46 | Emergency (ER) | payer OTHER ==
[~2020-08-07] VITALS: Ht 157.5 cm; Wt 68.0 kg
--- NOTE | 2020-08-07 11:49 | NUR ---
Patient to ER bed 02 to gown for evaluation. Side rails up.
[2020-08-07 11:53] VITALS: BP_SYST 138
--- NOTE | 2020-08-07 11:55 | NUR ---
Patient BIB BLS with G-tube dislodged from home. Patient A&Ox2, nonverbal, skin red, with scant blood at g-tube site. Patient bed bound, multiple contractures, denies pain
--- NOTE | 2020-08-07 12:05 | NUR ---
ER Dr. FOX at bedside examining patient, replaced g-tube.
--- NOTE | 2020-08-07 12:10 | NUR ---
X-RAY AT BS
--- NOTE | 2020-08-07 12:14 | NUR ---
REPORT TO CORDELIA MCCORD
[2020-08-07] MEDS ORDERED: GASTROGRAFIN 120 ML ONE (12:27)
--- NOTE | 2020-08-07 12:36 | NUR ---
PHONE CALL TO HOME, FAMILY TO RECEIVE. EMT AWARE. OFF UNIT VIA GURNEY /S TRANSPORT
[2020-08-07 12:37] VITALS: BP_SYST 127
--- NOTE | 2020-08-07 12:39 | NUR ---
Patient given written and FAMILY AWARE OF ACI AND Verbalizes understanding. Patient in stable condition. ID arm band removed.
== END 2020-08-07 12:39 | disposition home or self-care (01) ==
LOC: SED 11:46
DX: K94.23 Gastrostomy malfunction (principal); N28.9 Disorder of kidney and ureter, unspecified; Z86.73 Personal history of transient ischemic attack (TIA), and cerebral infarction without residual deficits; Z87.440 Personal history of urinary (tract) infections
CPT/HCPCS: 43762; 74240; 99284; Q9963

== ENCOUNTER 2020-10-27 08:32 | Inpatient (IN) | payer OTHER, SELFPAY ==
[~2020-10-27] VITALS: Ht 154.9 cm; Wt 56.7 kg
[2020-10-27 08:35] VITALS: BP_SYST 81
[2020-10-27 09:34] LABS: BILIRUBIN,URINE NEGATIVE (NEGATIVE); CLARITY/URINE SL CLOUDY (CLEAR); COLOR,URINE YELLOW (YELLOW); GLUCOSE,URINE NEGATIVE (NEGATIVE); KETONES,URINE NEGATIVE (NEGATIVE); LEUKOCYTE ESTERASE ,URINE 3+ (NEGATIVE); NITRITE, URINE NEGATIVE (NEGATIVE); PROTEIN URINE NEGATIVE (NEGATIVE); UROBILINOGEN,URINE 0.2 (0.2-1.0)
[2020-10-27 09:42] LABS: BASOPHILS % (AUTO) 0.6 % (0.0-2.0); EOSINOPHILS # (AUTO) 0.2 K/uL (0.0-0.4); EOSINOPHILS % (AUTO) 2.3 % (0.0-4.0); HEMATOCRIT 42.8 % (36-48); HEMOGLOBIN 14.7 g/dL (12.0-16.0); LYMPHOCYTES # (AUTO) 2.3 K/uL (1.0-5.5); LYMPHOCYTES % (AUTO) 32.9 % (20.5-51.5); MEAN CORPUSCULAR HEMOGLOBIN 31 pg (27-31); MEAN CORPUSCULAR HGB CONC 34 % (32-36); MEAN CORPUSCULAR VOLUME 89 fL (79.0-98.0); MONOCYTES # (AUTO) 0.4 K/uL (0.0-1.0); MONOCYTES % (AUTO) 5.8 % (1.7-9.3); NEUTROPHILS # (AUTO) 4.2 K/uL (1.8-7.7); NEUTROPHILS % (AUTO) 58.4 % (40.0-70.0); PLATELET COUNT (AUTO) 246 K/uL (130-430); RED BLOOD CELL COUNT(AUTO) 4.79 MIL/uL (4.2-6.2); RED CELL DISTRIBUTION WIDTH 15.1 % (9.0-15.0); WHITE BLOOD COUNT (AUTO) 7.1 K/uL (4.8-10.8)
[2020-10-27 09:47] LABS: BLOOD, URINE TRACE (NEGATIVE)
[2020-10-27 09:59] LABS: CALCIUM 8.9 mg/dL (8.4-11.0); CREATININE 0.29 mg/dL (0.55-1.30); POTASSIUM 3.6 mmol/L (3.5-5.1)
[2020-10-27 10:05] LABS: TOTAL BILIRUBIN 0.4 mg/dL (0.0-1.0)
[2020-10-27 10:06] LABS: PROTHROMBIN TIME 10.4 SECS (9.5-12.5)
[2020-10-27 10:06] LABS: BACTERIA,URINE MODERATE /HPF (None Seen); TRIPLE PHOSPHATE CRYSTAL,UR 0-10 /HPF (None Seen); WBC,URINE 20-50 /HPF (0-3)
[2020-10-27] MEDS ORDERED: NACL 0.9% 1,000 ML IV ONE (10:30)
[2020-10-27] MEDS ORDERED: KETOROLAC TROMETHAMINE 30 MG VIAL IVP ONE (10:30)
[2020-10-27] MEDS ORDERED: cefTRIAXone 1 GM VIAL IV ONE (10:30)
[2020-10-27] MEDS ORDERED: NACL 0.9% 1,000 ML IV SCH (10:45)
[2020-10-27] MEDS ORDERED: LORazepam 2 MG/ML VIAL IVP ONE ×2 (11:30→12:15)
[2020-10-27] MEDS ORDERED: KCL 20 mEq in D5/0.45NS 1000mL 1,000 ML IV ONE (11:45)
[2020-10-27] MEDS ORDERED: LORazepam 2 MG/ML VIAL IVP PRN (13:45)
[2020-10-27] MEDS: KCL 20 mEq in D5/0.45NS 1000mL 1,000 ML IV SCH (15:15)
[2020-10-27 15:26] VITALS: BP_SYST 115
[2020-10-27 16:00] VITALS: BP_SYST 117
[2020-10-27] MEDS: ZOLPIDEM TARTRATE 5 MG TABLET GT SCH (17:24)
[2020-10-27] MEDS: LevETIRAcetam 500 MG/5 ML UDC ORAL LIQUID GT SCH (17:25)
[2020-10-27 20:00] VITALS: BP_SYST 105
[2020-10-27] MEDS ORDERED: ACETAMINOPHEN 650 MG/20.3 ML UDC ONE (20:55)
[2020-10-27] MEDS ORDERED: MEROPENEM 500 MG in NS 50 ML IV SCH (21:00)
[2020-10-27] MEDS: LACOSAMIDE 100 MG TABLET GT SCH (21:02)
[2020-10-27] MEDS: ACETAMINOPHEN 650 MG/20.3 ML UDC GT SCH (21:02)
[2020-10-27] MEDS: CALCIUM CARBONATE/VITAMIN D3 1 TAB TABLET GT SCH (21:02)
[2020-10-27] MEDS: ENOXAPARIN SODIUM 30 MG/0.3 ML SYRINGE SUBCUT SCH (21:03)
[2020-10-28] VITALS: BP_SYST 100
[2020-10-28] MEDS: KCL 20 mEq in D5/0.45NS 1000mL 1,000 ML IV SCH ×2 (03:35→17:34)
[2020-10-28 08:10] VITALS: BP_SYST 107
[2020-10-28 08:45] LABS: BASOPHILS % (AUTO) 0.6 % (0.0-2.0); EOSINOPHILS % (AUTO) 0.4 % (0.0-4.0); HEMATOCRIT 43.3 % (36-48); HEMOGLOBIN 15.1 g/dL (12.0-16.0); LYMPHOCYTES # (AUTO) 1.7 K/uL (1.0-5.5); MEAN CORPUSCULAR HEMOGLOBIN 31 pg (27-31); MEAN CORPUSCULAR HGB CONC 35 % (32-36); MEAN CORPUSCULAR VOLUME 89 fL (79.0-98.0); MONOCYTES # (AUTO) 0.2 K/uL (0.0-1.0); MONOCYTES % (AUTO) 4.7 % (1.7-9.3); NEUTROPHILS # (AUTO) 3.2 K/uL (1.8-7.7); NEUTROPHILS % (AUTO) 61.3 % (40.0-70.0); PLATELET COUNT (AUTO) 263 K/uL (130-430); RED BLOOD CELL COUNT(AUTO) 4.88 MIL/uL (4.2-6.2); RED CELL DISTRIBUTION WIDTH 15.1 % (9.0-15.0); WHITE BLOOD COUNT (AUTO) 5.2 K/uL (4.8-10.8)
[2020-10-28] MEDS ORDERED: ACETAMINOPHEN 650 MG/20.3 ML UDC ONE ×2 (09:14→22:33)
[2020-10-28] MEDS: ACETAMINOPHEN 650 MG/20.3 ML UDC GT SCH ×2 (09:19→22:40)
[2020-10-28] MEDS: LACOSAMIDE 100 MG TABLET GT SCH ×2 (09:20→22:40)
[2020-10-28] MEDS: cefTRIAXone 1 GM in D5W 50 ML IV SCH (09:20)
[2020-10-28] MEDS: CALCIUM CARBONATE/VITAMIN D3 1 TAB TABLET GT SCH ×2 (09:20→22:39)
[2020-10-28] MEDS: METOCLOPRAMIDE HCL 10 MG TABLET GT SCH (09:21)
[2020-10-28 09:22] LABS: ALBUMIN 3.2 g/dL (3.4-4.8); CALCIUM 8.5 mg/dL (8.4-11.0); CREATININE 0.26 mg/dL (0.55-1.30); POTASSIUM 3.8 mmol/L (3.5-5.1); TOTAL BILIRUBIN 0.4 mg/dL (0.0-1.0)
[2020-10-28] MEDS: LevETIRAcetam 500 MG/5 ML UDC ORAL LIQUID GT SCH ×2 (09:22→17:35)
[2020-10-28 12:30] VITALS: BP_SYST 92
[2020-10-28] MEDS ORDERED: MENTHOL/ZINC OXIDE 113 GM OINT. TP PRN (15:15)
[2020-10-28 16:33] VITALS: BP_SYST 99
[2020-10-28] MEDS: ZOLPIDEM TARTRATE 5 MG TABLET GT SCH (17:35)
[2020-10-28 20:00] VITALS: BP_SYST 116
[2020-10-28] MEDS: ENOXAPARIN SODIUM 30 MG/0.3 ML SYRINGE SUBCUT SCH (22:41)
[2020-10-29] VITALS: BP_SYST 125
[2020-10-29 08:00] VITALS: BP_SYST 93
[2020-10-29 08:30] LABS: BASOPHILS % (AUTO) 0.3 % (0.0-2.0); EOSINOPHILS # (AUTO) 0.1 K/uL (0.0-0.4); EOSINOPHILS % (AUTO) 1.9 % (0.0-4.0); HEMATOCRIT 43.2 % (36-48); HEMOGLOBIN 14.9 g/dL (12.0-16.0); LYMPHOCYTES # (AUTO) 2.7 K/uL (1.0-5.5); LYMPHOCYTES % (AUTO) 47.6 % (20.5-51.5); MEAN CORPUSCULAR HEMOGLOBIN 31 pg (27-31); MEAN CORPUSCULAR HGB CONC 34 % (32-36); MEAN CORPUSCULAR VOLUME 89 fL (79.0-98.0); MONOCYTES # (AUTO) 0.4 K/uL (0.0-1.0); MONOCYTES % (AUTO) 6.4 % (1.7-9.3); NEUTROPHILS # (AUTO) 2.5 K/uL (1.8-7.7); NEUTROPHILS % (AUTO) 43.8 % (40.0-70.0); PLATELET COUNT (AUTO) 252 K/uL (130-430); RED BLOOD CELL COUNT(AUTO) 4.86 MIL/uL (4.2-6.2); RED CELL DISTRIBUTION WIDTH 15.3 % (9.0-15.0); WHITE BLOOD COUNT (AUTO) 5.7 K/uL (4.8-10.8)
[2020-10-29] MEDS: LACOSAMIDE 100 MG TABLET GT SCH ×2 (09:20→20:56)
[2020-10-29] MEDS: CALCIUM CARBONATE/VITAMIN D3 1 TAB TABLET GT SCH ×2 (09:21→20:56)
[2020-10-29] MEDS: LevETIRAcetam 500 MG/5 ML UDC ORAL LIQUID GT SCH ×2 (09:21→19:01)
[2020-10-29] MEDS: METOCLOPRAMIDE HCL 10 MG TABLET GT SCH (09:28)
[2020-10-29] MEDS: cefTRIAXone 1 GM in D5W 50 ML IV SCH (09:28)
[2020-10-29] MEDS ORDERED: ACETAMINOPHEN 325 MG TABLET ONE (09:28)
[2020-10-29] MEDS ORDERED: ACETAMINOPHEN 650 MG/20.3 ML UDC ONE ×2 (09:32→20:55)
[2020-10-29] MEDS: ACETAMINOPHEN 650 MG/20.3 ML UDC GT SCH ×2 (09:33→20:57)
[2020-10-29 13:10] VITALS: BP_SYST 90
[2020-10-29] MEDS: KCL 20 mEq in D5/0.45NS 1000mL 1,000 ML IV SCH (13:20)
[2020-10-29 16:00] VITALS: BP_SYST 109; BP_SYST 128
[2020-10-29] MEDS: ZOLPIDEM TARTRATE 5 MG TABLET GT SCH (19:01)
[2020-10-29 20:00] VITALS: BP_SYST 106
[2020-10-29] MEDS: ENOXAPARIN SODIUM 30 MG/0.3 ML SYRINGE SUBCUT SCH (20:56)
[2020-10-30] VITALS: BP_SYST 112
[2020-10-30] MEDS: KCL 20 mEq in D5/0.45NS 1000mL 1,000 ML IV SCH ×2 (01:36→17:26)
[2020-10-30] MEDS ORDERED: ACETAMINOPHEN 650 MG/20.3 ML UDC ONE (08:54)
[2020-10-30] MEDS: cefTRIAXone 1 GM in D5W 50 ML IV SCH (08:58)
[2020-10-30] MEDS: CALCIUM CARBONATE/VITAMIN D3 1 TAB TABLET GT SCH (08:59)
[2020-10-30] MEDS: LACOSAMIDE 100 MG TABLET GT SCH (08:59)
[2020-10-30] MEDS: LevETIRAcetam 500 MG/5 ML UDC ORAL LIQUID GT SCH ×2 (08:59→17:26)
[2020-10-30] MEDS: ACETAMINOPHEN 650 MG/20.3 ML UDC GT SCH (08:59)
[2020-10-30] MEDS: METOCLOPRAMIDE HCL 10 MG TABLET GT SCH (08:59)
[2020-10-30 12:00] VITALS: BP_SYST 85
[2020-10-30 15:02] VITALS: BP_SYST 120
[2020-10-30] MEDS: ZOLPIDEM TARTRATE 5 MG TABLET GT SCH (17:26)
[2020-10-30 17:28] VITALS: BP_SYST 128
== END 2020-10-30 17:50 | disposition home health service (06) | DRG 100 ==
LOC: SED 08:32 → STU 11:34
PROVIDERS: ADMIT Family Medicine; ATTEND Family Medicine
DX: G40.909 Epilepsy, unspecified, not intractable, without status epilepticus (principal); G82.50 Quadriplegia, unspecified; N39.0 Urinary tract infection, site not specified; G93.40 Encephalopathy, unspecified; Z16.24 Resistance to multiple antibiotics; Z20.822 Contact with and (suspected) exposure to COVID-19; F03.90 Unspecified dementia, unspecified severity, without behavioral disturbance, psychotic disturbance, mood disturbance, and anxiety; Z87.820 Personal history of traumatic brain injury; Z79.899 Other long term (current) drug therapy
CPT/HCPCS: 36415; 70450-TC; 71045; 76376; 80053; 81000-TC; 84484; 85025; 85610-TC; 85730-TC; 87040-TC; 87086; 93005; 99285; G0378; J0696; J1650; J1885; J2060; J2185; J7060; J8597